=== PATIENT | female | born 1970 | race Caucasian/White ===

== ENCOUNTER → 2018-01-03 11:10 | Outpatient (CLI) | payer SELFPAY ==
[2018-01-03 11:41] LABS: Prothrombin Time (Protime)PT. 30.9 SECONDS (11.7-14.9)
== END ==
PROVIDERS: Family Provider Family Medicine; PCP Family Medicine; Visit Provider Family Medicine
DX: I82.4Z2 Acute embolism and thrombosis of unspecified deep veins of left distal lower extremity (principal); Z79.01 Long term (current) use of anticoagulants
CPT/HCPCS: 85610

== ENCOUNTER → 2018-03-01 14:34 | Outpatient (CLI) | payer MEDICAID, SELFPAY ==
[2018-03-01 14:49] LABS: International Normalized Ratio 2.4; Prothrombin Time (Protime)PT. 26.1 SECONDS (11.7-14.9)
== END ==
PROVIDERS: Referring Provider Family Medicine; Visit Provider Family Medicine
DX: I82.4Z2 Acute embolism and thrombosis of unspecified deep veins of left distal lower extremity (principal); Z79.01 Long term (current) use of anticoagulants
CPT/HCPCS: 85610

== ENCOUNTER → 2018-03-08 10:10 | Outpatient (CLI) | payer MEDICAID, SELFPAY ==
[2018-03-08 10:33] LABS: International Normalized Ratio 2.2; Prothrombin Time (Protime)PT. 24.8 SECONDS (11.7-14.9)
== END ==
PROVIDERS: Referring Provider Family Medicine; Visit Provider Family Medicine
DX: I82.4Z2 Acute embolism and thrombosis of unspecified deep veins of left distal lower extremity (principal); Z79.01 Long term (current) use of anticoagulants
CPT/HCPCS: 85610

== ENCOUNTER → 2018-04-01 09:53 | Outpatient (CLI) | payer MEDICAID, SELFPAY ==
[2018-04-01 13:11] LABS: International Normalized Ratio 2.4; Prothrombin Time (Protime)PT. 26.4 SECONDS (11.7-14.9)
== END ==
PROVIDERS: Referring Provider Family Medicine; Visit Provider Family Medicine
DX: I82.4Z2 Acute embolism and thrombosis of unspecified deep veins of left distal lower extremity (principal); Z79.01 Long term (current) use of anticoagulants
CPT/HCPCS: 85610

== ENCOUNTER → 2018-05-09 11:58 | Outpatient (CLI) | payer MEDICAID, SELFPAY ==
[2018-05-09 13:03] LABS: International Normalized Ratio 2.3; Prothrombin Time (Protime)PT. 25.7 SECONDS (11.7-14.9)
--- OUTSIDE RECORDS SUMMARY | 2018-06-25 07:16 | XMS RPT_ITS ---
:1970 Author Organization OHIP Care Team Providers Name Role Phone PATRICK LOPEZ Referring Unavailable PATRICK LOPEZ Referring Unavailable GIFTY MERCADO (HAT MARKER) Attending Unavailable SHERRILL NAVARRO Referring Unavailable ELDERBROCK, PATRICK D Referring Unavailable ELDERBROCK, PATRICK Umaña Referring Unavailable ELDERBROCK, PATRICK Umaña Referring Unavailable SERENITY MORRIS (SAWMILLING OPERATOR) Attending Unavailable ELDERBROCK, PATRICK Umaña Referring Unavailable ELDERBROCK, PATRICK Umaña Referring Unavailable ELDERBROCK, PATRICK Umaña Attending Unavailable SERENITY MORRIS (SAWMILLING OPERATOR) Referring Unavailable ELDERBROCK, PATRICK Umaña Referring Unavailable ELDERBROCK, PATRICK D Referring Unavailable ELDERBROCK, PATRICK D Referring Unavailable ELDERBROCK, PATRICK Umaña Attending Unavailable ELDERBROCK, PATRICK D Referring Unavailable ELDERBROCK, PATRICK D Referring Unavailable ELDERBROCK, PATRICK D Referring Unavailable ELDERBROCK, PATRICK D Referring Unavailable ELDERBROCK, PATRICK Umaña Attending Unavailable ELDERBROCK, PATRICK Umaña Referring Unavailable ELDERBROCK, PATRICK Umaña Referring Unavailable ELDERBROCK, PATRICK Umaña Referring Unavailable ARMANDO REILLY Attending Unavailable ELDERBROCK, PATRICK Umaña Referring Unavailable ELDERBROCK, PATRICK Umaña Referring Unavailable ELDERBROCK, PATRICK Umaña Referring Unavailable OLDER, AILYN (HAT MARKER) Attending Unavailable OLDER, AILYN (HAT MARKER) Referring Unavailable ELDERBROCK, PATRICK D Referring Unavailable ELDERBROCK, PATRICK Umaña Referring Unavailable ELDERBROCK, PATRICK Umaña Referring Unavailable Elderbrock, Patrick Attending Unavailable Elderbrock, Patrick Referring Unavailable Elderbrock, Patrick Attending Unavailable Elderbrock, Patrick Referring Unavailable Elderbrock, Patrick Primary Care Unavailable Elderbrock, Patrick Attending Unavailable [place], Patrick Primary Care Unavailable [place], Patrick Attending Unavailable [place]brock, Patrick Referring Unavailable Elderbrock, Patrick Attending Unavailable [place]ck, Patrick Referring Unavailable ASSESSMENT, HEALTH RISK Attending Unavailable Elder[place]ck, Patrick Attending Unavailable [place], Patrick Referring Unavailable PROBLEMS PROBLEMS DATE TYPE CONDITION / CODE ATTENDING STATUS SOURCE 05/09/2018 Unknown Z79.01 - custodial [place], Active [place] (current) use of Patrick [facility] anticoagulants / Hospital Z79.01(ICD-10) Repository 05/09/2018 Unknown I82.4Z2 - Acute [place], Active [place] embolism and [facility] thrombosis of Hospital unspecified deep Repository veins of left distal lower extremity / I82.4Z2(ICD-10) 09/29/2016 Active Acute embolism and NA Active [place] thrombosis of other Clinic Main specified deep vein [place] of left lower Repository extremity / I82.492(ICD-10) 03/09/2018 Active Cough / R05(ICD-10) NA Active [facility] [place] Repository 03/09/2018 Active Wheezing / NA Active [facility] R06.2(ICD-10) Clinic Main [place] Repository 03/24/2014 Active Vitamin D NA Active [place] deficiency, Clinic Main unspecified / [place] E55.9(ICD-10) Repository 03/01/2018 Active Encounter for NA Active [place] antibody response [facility] examination / [place] Z01.84(ICD-10) Repository 10/05/2017 Active Acute embolism and NA Active [facility] thrombosis of [facility] unspecified deep [place] veins of left distal Repository lower extremity / I82.4Z2(ICD-10) 09/18/2017 Active Other oil heaterman NA Active [place] (current) drug [facility] therapy / [place] Z79.899(ICD-10) Repository 09/10/2017 Active Encounter for NA Active [place] screening mammogram Clinic [facility] for malignant [place] neoplasm of breast / Repository Z12.31(ICD-10) 09/10/2017 Active Unknown / GIFTY MERCADO Active [place] UNK(Unknown) (HAT MARKER) Clinic Main [place] Repository 11/05/2015 Active Personal history of NA Active [place] other venous [facility] thrombosis and [place] embolism / Repository Z86.718(ICD-10) 12/11/2013 Active intermediate project manager (current) NA Active [place] use of Clinic Main anticoagulants / [place] Z79.01(ICD-10) Repository PROCEDURES PROCEDURES No Procedure Records FoundRESULTS RESULTS OBSOLETE Observed: 06/14/2018 Status: COMPLETED Source: [place] 12:00 AM [facility] REPOSITORY Refill (FAMAuryWS) CARMELO BEST ([id number]) 1970 F Date Time Provider Department 06/14/18 PATRICK LOPEZWS During your visit today, we recorded the following information about you: Mildred Pandya, RN, RN 06/14/2018 1:01 PM Signed Patient has been identified by name and date of : Yes Patient phones for refill(s): Pending Prescriptions Disp Refills POTASSIUM CHLORIDE ER 20 MEQ TABLET,EXTENDED RELEASE(PART/CRYST) 60 tablet 11 Sig: Take 1 tablet by mouth twice daily. DRISS: No Date of last office visit in primary care: 03/09/18 Last 2 Encounter Wt Readings: Date: Wt: 03/09/2018 131.5 kg (290 lb) 03/01/2018 134.3 kg (296 lb) Previous labs/tests for medication: Potassium: No components found for: POT Please advise. Thank you. Mildred Pandya RN Patrick Lopez MD 06/14/2018 3:16 PM Signed OK to refill as ordered MD Malathi Pierre Ma 06/14/2018 3:48 PM Signed The following approved medication requests have been transmitted electronically. Signed Prescriptions Disp Refills potassium chloride ER (KLOR-CON M20) 20 mEq tablet 60 tablet 11 Sig: Take 1 tablet by mouth twice daily. DRISS: No Authorizing Provider: PATRICK LOPEZ Ma Allergies As of Date: 06/14/2018 (No Known Allergies) Date Reviewed: 03/09/2018 Reviewed by: Jane Alvarado Ma - Fully Assessed Reason for Visit: Refill Request [94] Order(s):potassium chloride ER (KLOR-CON M20) 20 mEq tabletTake 1 tablet by mouth twice daily.Disp: 60 tabletRfl: 11 Prescriptions as of 06/14/2018 Sig: POTASSIUM CHLORIDE ER 20 MEQ * Take 1 tablet by mouth twice * CHOLECALCIFEROL (VITAMIN D3) * Take 1 capsule by mouth once * BUPROPION XL 300 MG 24 HR TAB TAKE 1 TABLET BY MOUTH ONCE D* WARFARIN 5 MG TABLET 10 mg Mon/Wed/Fri and 7.5 mg * WARFARIN 5 MG TABLET 10 mg Mon/Wed/Fri and 7.5 mg * WARFARIN 5 MG TABLET 10 mg Mon/Wed/Fri and 7.5 mg * BROMPHENIRAMINE-PSEUDOEPHEDRI* Take 5 mL by mouth four times* ALBUTEROL SULFATE HFA 90 MCG/* Inhale 2 Puffs as instructed * LOSARTAN 50 MG TABLET TAKE ONE TABLET BY MOUTH ONCE* HYDROCHLOROTHIAZIDE 25 MG TAB* TAKE ONE TABLET BY MOUTH ONCE* COMPOUNDED PRESCRIPTION AutoPAP 5-15 cmH2O with humid* Problem List As Of Date 06/14/2018 Noted Resolved ADJUSTMENT DISORDER WITH DEPRESSED MOOD [F43.21]INVALID FOR* Essential Hypertension, Benign [I10] INVALID FOR* Obesity, Class III, BMI 40-49.9 (morbid obesity*INVALID FOR* Calcaneal spur [M77.30] INVALID FOR* Left leg DVT [I82.402] INVALID FOR* intermediate project manager (current) use of anticoagulants [Z79.*INVALID FOR* KERVIN (iron deficiency anemia) [D50.9] INVALID FOR*09/28/2017 Vitamin D deficiency [E55.9] INVALID FOR* Positive occult stool blood test [R19.5] Benign pigmented mole [D22.9] INVALID FOR* More... Hematuria [R31.9] INVALID FOR* Menorrhagia with irregular cycle [N92.1] INVALID FOR*07/12/2016 History of DVT (deep vein thrombosis) [Z86.718] INVALID FOR* Deep vein thrombosis (DVT) of left lower extrem*INVALID FOR* Steroid-induced hyperglycemia [R73.9, T38.0X5A] INVALID FOR* Obstructive sleep apnea [G47.33] INVALID FOR* Prescriptions ordered this encounter Disp Refills Start End POTASSIUM CHLORIDE ER 20 MEQ TABLET,* 60 t* 11 06/14/2018 Route: ORAL Sig: Take 1 tablet by mouth twice daily. Medications Discontinued During This Encounter potassium chloride ER (KLOR-CON M20)* 60 t* 11 02/02/2017 06/14/2018 Route: ORAL Sig: Take 1 tablet by mouth twice daily. Disc: Reason for discontinue is not on file. Encounter Status:Closed by MALATHI IVY MA on 06/14/18 PROTHROMBIN TIME W/INR Collected: 06/03/2018 Status: F Source: [place] 11:19 AM [facility] REPOSITORY TYPE CODE TESTS RESULT OUT OF RANGE REFERENCE UNITS LAB L300.4150 11.7-14.9 SECONDS High PROTIME 27.8 LAB L300.4200 Normal INR 2.6 Performed By: #### L300.3900 #### [facility] [place], [address] PROTIME Collected: 05/09/2018 Status: F Source: [place] 10:58 AM [facility] REPOSITORY TYPE CODE TESTS RESULT OUT OF REFERENCE UNITS RANGE LAB PSEC 9.7-13.0 sec Test PT sent to [facility]. Result Comment: Account Credited LAB INR 0.9-1.3 Test sent to PT INR [facility]. Result Comment: Account Credited VITAMIN D 25 HYDROXY Collected: 05/09/2018 Status: F Source: [place] 10:55 AM [facility] REPOSITORY TYPE CODE TESTS RESULT OUT OF REFERENCE UNITS RANGE LAB VITD 31.0-80.0 ng/mL Vitamin D 25 61.6 Hydroxy Result Comment: Classification of 25 [place] Vitamin D status: Insufficiency/Moderate Deficiency: < or = 30 ng/mL Sufficiency/Optimal Levels: 31 to 80 ng/mL Toxicity: > 100 ng/mL Test performed by chemiluminescent immunoassay. Performed By: #### VITD #### [facility] [address] [place], [place] [address] PROTHROMBIN TIME W/INR Collected: 05/09/2018 Status: F Source: [place] 10:47 AM [facility] REPOSITORY TYPE CODE TESTS RESULT OUT OF RANGE REFERENCE UNITS LAB L300.4150 11.7-14.9 SECONDS High PROTIME 25.7 LAB L300.4200 Normal INR 2.3 Performed By: #### L300.3900 #### [facility] [address] [place], [address] PROTIME Collected: 04/20/2018 Status: F Source: [place] 11:16 AM [facility] REPOSITORY TYPE CODE TESTS RESULT OUT OF RANGE REFERENCE UNITS LAB PSEC 9.7-13.0 sec High PT Sec 21.4 LAB INR 0.9-1.3 High PT INR 2.1 Result Comment: Vitamin K Antagonist (VKA) Therapeutic Range: INR 2 to 3 (Target INR of 2.5) Note: For patients treated with VKA drugs, such as warfarin, the [employer] 2012 Guideline recommends a therapeutic INR range of 2 to 3 (target INR of 2.5). This recommendation includes high-risk patients with antiphospholipid syndrome with previous arterial or venous thromboembolism, current-generation mechanical or bioprosthetic aortic heart valve replacement. Note: Patients with mechanical aortic valve replacement and additional risk factors for thromboembolic events (atrial fibrillation, previous thromboembolism, LV dysfunction, hypercoagulable conditions) or an older generation mechanical AVR (i.e., ball in-Cage) or any mechanical MVR should have a INR therapeutic range of 2.5 to 3.5 (target INR of 3). Napoleon GH, et al. Chest 2012, 141:7S-47S Rusty RA, et al. [facility] 2017, 70: 252-289 Performed By: #### PT #### [facility] [address] [place], [place] [address] PROTIME Collected: 04/01/2018 Status: F Source: [place] 10:30 AM [facility] REPOSITORY TYPE CODE TESTS RESULT OUT OF REFERENCE UNITS RANGE LAB PSEC 9.7-13.0 sec Test PT sent to [facility]. Result Comment: Account Credited HIDE LAB INR 0.9-1.3 Test sent to PT INR [facility]. Result Comment: Account Credited HIDE PROTHROMBIN TIME W/INR Collected: 04/01/2018 Status: F Source: [place] 9:53 AM [facility] REPOSITORY TYPE CODE TESTS RESULT OUT OF RANGE REFERENCE UNITS LAB L300.4150 11.7-14.9 SECONDS High PROTIME 26.4 LAB L300.4200 Normal INR 2.4 Performed By: #### L300.3900 #### [facility] [address] [place], [address] CNPN Observed: 03/14/2018 Status: COMPLETED Source: [place] 12:00 AM [facility] REPOSITORY Telephone (BHANUWADS) CARMELO BEST ([id number]) 1970 F Date Time Provider Department 03/14/18 ARMANDO REILLY During your visit today, we recorded the following information about you: Armando Reilly MD 03/14/2018 8:25 AM Signed Still showing susceptible to measles. Would advise 2nd MMR after 03/24=2 mos after 1st shot. Order placed. Not to take the vaccine while on prednisone. Encounter Diagnosis ICD-10-CM 1. Need for immunization against measles Z23 MD Guillermina Vega Ma 03/14/2018 1:13 PM Signed Patient notified of results and provider's instructions. Patient verbalizes understanding. Guillermina García Ma Allergies As of Date: 03/14/2018 (No Known Allergies) Date Reviewed: 03/09/2018 Reviewed by: Jane Alvarado Ma - Fully Assessed Reason for Visit: Results [95] Primary Visit Diagnosis:Need for immunization against measles [Z23] Order(s):MMR VIRUS IMMUNIZATION, SUBCUT [[id number]] Order #: [id number] FUTURE Prescriptions as of 03/14/2018 Sig: BROMPHENIRAMINE-PSEUDOEPHEDRI* Take 5 mL by mouth four times* PREDNISONE 10 MG TABLET Take 4 tabs daily for 3 days,* ERGOCALCIFEROL (VITAMIN D2) 5* Take 1 capsule by mouth once * ALBUTEROL SULFATE HFA 90 MCG/* Inhale 2 Puffs as instructed * WARFARIN 5 MG TABLET 10 mg Sun and and 7.* WARFARIN 5 MG TABLET 10 mg Sun and 7.5 mg al* BUPROPION XL 300 MG 24 HR TAB Take 1 tablet by mouth once d* LOSARTAN 50 MG TABLET TAKE ONE TABLET BY MOUTH ONCE* HYDROCHLOROTHIAZIDE 25 MG TAB* TAKE ONE TABLET BY MOUTH ONCE* POTASSIUM CHLORIDE ER 20 MEQ * Take 1 tablet by mouth twice * COMPOUNDED PRESCRIPTION AutoPAP 5-15 cmH2O with humid* Problem List As Of Date 03/14/2018 Noted Resolved ADJUSTMENT DISORDER WITH DEPRESSED MOOD [F43.21]INVALID FOR* Essential Hypertension, Benign [I10] INVALID FOR* Obesity, Class III, BMI 40-49.9 (morbid obesity*INVALID FOR* Calcaneal spur [M77.30] INVALID FOR* Left leg DVT [I82.402] INVALID FOR* custodial (current) use of anticoagulants [Z79.*INVALID FOR* KERVIN (iron deficiency anemia) [D50.9] INVALID FOR*09/28/2017 Vitamin D deficiency [E55.9] INVALID FOR* Positive occult stool blood test [R19.5] Benign pigmented mole [D22.9] INVALID FOR* More... Hematuria [R31.9] INVALID FOR* Menorrhagia with irregular cycle [N92.1] INVALID FOR*07/12/2016 History of DVT (deep vein thrombosis) [Z86.718] INVALID FOR* Deep vein thrombosis (DVT) of left lower extrem*INVALID FOR* Steroid-induced hyperglycemia [R73.9, T38.0X5A] INVALID FOR* Obstructive sleep apnea [G47.33] INVALID FOR* Encounter Status:Closed by GUILLERMINA GARCÍA MA on 03/14/18 XR CHEST 2V FRONTAL/LAT Observed: 03/09/2018 Status: F Source: [place] 1:37 PM [facility] REPOSITORY * * *Final Report* * * DATE OF EXAM: Mar 09 2018 1:37PM WOX [id number] - XR CHEST 2V FRONTAL/LAT / PROCEDURE REASON: multiple diagnoses * * * * Physician Interpretation * * * * EXAMINATION: CHEST RADIOGRAPH (2 VIEW FRONTAL and LATERAL) CLINICAL HISTORY: Cough Wheezing MQ: XC2_5 Comparison: 12/29/2015 RESULT: Lines, tubes, and devices: None. Lungs and pleura: No focal consolidation, significant pleural effusion or pneumothorax. Cardiomediastinal silhouette: Within normal limits. Other: No acute osseous abnormality. Degenerative changes are present in the thoracic spine. IMPRESSION: Focal consolidation or pleural effusion Fusion Juncture Grinder: [facility] Transcribe Date/Time: Mar 09 2018 1:43P Dictated by : CHARLEE APODACA MD This examination was interpreted and the report reviewed and electronically signed by: CHARLEE APODACA MD on Mar 09 2018 1:44PM EST [id number] Observed: 03/09/2018 Status: COMPLETED Source: [place] 1:31 PM [facility] REPOSITORY HNO ID: [id number] Author: Gertrude Dao (Rt) Mary Yeung Service: (none) Author Type: Agronomy Supervisor Type: Progress Notes Filed: 03/09/2018 1:37 PM Note Text: Radiology Service Progress Note PATIENT NAME: Carmelo Best DATE OF SERVICE: March 09, 2018 TIME: 1:31 PM PATIENT IDENTITY VERIFICATION COMPLETED USING TWO (2) METHODS: Patient confirmed name verbally and Date of . PATIENT GENDER DATA: Female. status: : No status: NO. PATIENT RELEVANT IMPLANT DATA REVIEWED: Not Applicable RADIOLOGY DEPARTMENT: General X-ray: Exam(s) Completed: Chest X-Ray PERIPHERAL IV DATA: Not applicable SIGNED BY: RT Yojana March 09, 2018 1:31 PM PROGRESS Observed: 03/09/2018 Status: COMPLETED Source: [place] 1:21 PM [facility] REPOSITORY HNO ID: [id number] Author: Ailyn (Julissa) Older Service: (none) Author Type: Nurse Practitioner Type: Progress Notes Filed: 03/09/2018 1:56 PM Note Text: CC: Patient presents with: Cough Fever HPI: Carmelo Best is a 47 year old female who presents to the office with complaint of respiratory symptoms for a month. She was seen one week ago for symptoms, treated for sinobronchitis with Doxycycline. Started feeling slightly better for the first two days of the antibiotic but gradually worsening again. Associated symptoms includes nasal congestion, rhinorrhea, facial pain/pressure, fever, mostly non-productive cough, wheezing, dyspnea and chest tightness. Treatments tried include antihistamine with minor relief of symptoms. Inhaler helps temporarily. History of asthma, frequent episodes of bronchitis, chronic bronchitis, bronchiectasis or COPD: No Smoker: No Seasonal/environmental allergies: No The ROS is otherwise negative. The patient's pmh, medications, allergies, and past visits are reviewed. PHYSICAL EXAM: BP 120/90 Pulse 79 Temp 36.4 ?C (97.6 ?F) (Left Tympanic) Resp 16 Wt 131.5 kg (290 lb) LMP 09/03/2015 (Approximate) BMI 44.09 kg/m? General appearance: tired/ill appearing, in no acute distress Head: Normocephalic Eyes: conjunctiva pink and moist, no icterus, sclera white, non-injected Ears: Right ear: External ear/canal- Normal, TM - clear with good landmarks. Left ear: External ear/canal- Normal, TM - clear with good landmarks Nose: clear, no sinus tenderness. Oropharynx:No erythema, exudates or tonsillar hypertrophy. Neck:supple and no adenopathy Heart: Negative. RRR without obvious murmur, gallop, or rubs. No ectopy. Lungs: diminished breath sounds with scattered wheezing, rhonchi posteriorly, no rales ASSESSMENT/PLAN: 1. Acute bronchitis, unspecified organism - ICD9: 466.0, ICD10: J20.9 (primary diagnosis) No evidence of pneumonia on X-ray - Discussed bronchitis viral etiology and rationale for treatment. - Encouraged to increase fluids, rest, humidifier, expect to cough 2-3 weeks - Pharmacologic treatment: Prednisone burst with taper. Side effects discussed in detail with patient including elevated blood sugars, irritation/bleeding, and osteoporosis. Bromfed as needed - Symptomatic treatment prn analgesia - Follow up in 1-2 weeks if symptoms do not resolve or they worsen with onset of onset of new fever, localized chest pains and new headache with increase in nasal congestion/drainage 2. Cough - ICD9: 786.2, ICD10: R05 As above - XR CHEST 2V FRONTAL/LAT 3. Wheezing - ICD9: 786.07, ICD10: R06.2 As above - XR CHEST 2V FRONTAL/LAT Prescription instructions reviewed with patient as applicable. Potential red flag symptoms discussed with the patient. Reviewed appropriate action plan to take if red flag symptoms occur. Patient agreeable to treatment plan. Ailyn Emanuel APRN.CNP CNOV Observed: 03/09/2018 Status: COMPLETED Source: [place] 1:15 PM [facility] REPOSITORY Office Visit (WSTR) CARMELO BEST ([id number]) 1970 F Date Time Provider Department 03/09/18 1:15 PM AILYN EMANUEL (JULISSA) WSTR During your visit today, we recorded the following information about you: Temperature Pulse Respiration Blood pressure 97.6 degrees 79/minute 16/minute 120/90 Weight 131.5 kg Ailyn Emanuel APRN.CNP 03/09/2018 1:56 PM Signed CC: Patient presents with: Cough Fever HPI: Carmelo Best is a 47 year old female who presents to the office with complaint of respiratory symptoms for a month. She was seen one week ago for symptoms, treated for sinobronchitis with Doxycycline. Started feeling slightly better for the first two days of the antibiotic but gradually worsening again. Associated symptoms includes nasal congestion, rhinorrhea, facial pain/pressure, fever, mostly non-productive cough, wheezing, dyspnea and chest tightness. Treatments tried include antihistamine with minor relief of symptoms. Inhaler helps temporarily. History of asthma, frequent episodes of bronchitis, chronic bronchitis, bronchiectasis or COPD: No Smoker: No Seasonal/environmental allergies: No The ROS is otherwise negative. The patient's pmh, medications, allergies, and past visits are reviewed. PHYSICAL EXAM: BP 120/90 Pulse 79 Temp 36.4 ?C (97.6 ?F) (Left Tympanic) Resp 16 Wt 131.5 kg (290 lb) LMP 09/03/2015 (Approximate) BMI 44.09 kg/m? General appearance: tired/ill appearing, in no acute distress Head: Normocephalic Eyes: conjunctiva pink and moist, no icterus, sclera white, non-injected Ears: Right ear: External ear/canal- Normal, TM - clear with good landmarks. Left ear: External ear/canal- Normal, TM - clear with good landmarks Nose: clear, no sinus tenderness. Oropharynx:No erythema, exudates or tonsillar hypertrophy. Neck:supple and no adenopathy Heart: Negative. RRR without obvious murmur, gallop, or rubs. No ectopy. Lungs: diminished breath sounds with scattered wheezing, rhonchi posteriorly, no rales ASSESSMENT/PLAN: 1. Acute bronchitis, unspecified organism - ICD9: 466.0, ICD10: J20.9 (primary diagnosis) No evidence of pneumonia on X-ray - Discussed bronchitis viral etiology and rationale for treatment. - Encouraged to increase fluids, rest, humidifier, expect to cough 2-3 weeks - Pharmacologic treatment: Prednisone burst with taper. Side effects discussed in detail with patient including elevated blood sugars, irritation/bleeding, and osteoporosis. Bromfed as needed - Symptomatic treatment prn analgesia - Follow up in 1-2 weeks if symptoms do not resolve or they worsen with onset of onset of new fever, localized chest pains and new headache with increase in nasal congestion/drainage 2. Cough - ICD9: 786.2, ICD10: R05 As above - XR CHEST 2V FRONTAL/LAT 3. Wheezing - ICD9: 786.07, ICD10: R06.2 As above - XR CHEST 2V FRONTAL/LAT Prescription instructions reviewed with patient as applicable. Potential red flag symptoms discussed with the patient. Reviewed appropriate action plan to take if red flag symptoms occur. Patient agreeable to treatment plan. Ailyn Emanuel APRN.JULISSA Robertson Funmi LYNNE.JULISSA 03/09/2018 1:53 PM Addendum What is Bronchitis: No doubt you've had your share of colds. Perhaps you even know someone who has had pneumonia. In between these two conditions is an illness called bronchitis, which is more severe than the common cold but not as dangerous as pneumonia Bronchitis occurs when the bronchioles (air tubes in the lungs) are inflamed and make too much mucus. There are two basic types of bronchitis: ? Chronic bronchitis is a cough that persists for two to three months each year for at least two years. The cough and inflammation may be caused by infection, illness, or exposure to tobacco smoke or other irritating substances in the air. ? Acute or short-term bronchitis is more common and usually is caused by a viral infection. Episodes of acute bronchitis can be related to and worsened by smoking. Treatment Bronchitis is not usually treated with antibiotic medicines. That?s because bronchitis is almost always caused by a virus, and antibiotics only kill bacteria?not viruses. 1.) Get more rest than you usually do - this will speed your recovery. If you push hard with your usual busy schedule, you will be sicker longer. 2.) Drink a lot of water - enough to make you urinate every 2-3 hours (your urine should be a light yellow color). This helps thin the phlegm and sooth the airways. Gatorade (G2) is less in sugar and replaces your electrolytes if not eating well. 3.) Run a cool mist humidifier in your bedroom on high with the door closed. This is a natural way to decongest, and it helps lessen scratchy throats, nasal stuffiness and coughs. A good brand is [employer], which can be found at [employer] or [employer]. This is especially important if you do not have a humidifier on your furnace. 4) For cough-Mucinex 600-1200mg twice daily(plain) may help thin secretions so they are easier to cough up. May also use Robitussin cough syrup as needed (without DM). Those with high blood pressure may take Coricidin HBP. 5) For SOB/wheezing: Albuterol inhaler (if prescribed), follow prescription instructions. This medication helps by relaxing muscles in the airways and increasing air flow to the lungs 6) Prednisone (if prescribed): This is an anti-inflammatory medication which will help calm the inflamed bronchioles, increasing air flow to the lungs and reducing cough Cough following bronchitis can last up to 4-6 weeks but should slowly improve. If cough worsens or lasts longer than 4 weeks please call office at [phone] Referring Provider: SELF [200] Allergies As of Date: 03/09/2018 (No Known Allergies) Date Reviewed: 03/09/2018 Reviewed by: Jane Alvarado Ma - Fully Assessed Reason for Visit: Cough [28] Fever [47] Primary Visit Diagnosis:Acute bronchitis, unspecified organism [J20.9] Other Visit Diagnoses:Cough [R05] Wheezing [R06.2] Order(s):XR CHEST 2V FRONTAL/LAT [[id number]] Order #: [id number] FUTURE Kwwisdmasiicxck-Tpdvcktwp-GF (BROMFED DM) 2-30-10 mg/5 mL syrupTake 5 mL by mouth four times daily as needed.Disp: 140 mLRfl: 0 predniSONE (DELTASONE) 10 mg tabletTake 4 tabs daily for 3 days, then 2 tabs daily for 3 days, then 1 tab daily for 3 days with food.Disp: 21 tabletRfl: 0 Prescriptions as of 03/09/2018 Sig: ERGOCALCIFEROL (VITAMIN D2) 5* Take 1 capsule by mouth once * DOXYCYCLINE MONOHYDRATE 100 M* Take 1 tablet by mouth twice * ALBUTEROL SULFATE HFA 90 MCG/* Inhale 2 Puffs as instructed * WARFARIN 5 MG TABLET 10 mg Sun and and 7.* WARFARIN 5 MG TABLET 10 mg Sun and 7.5 mg al* BUPROPION XL 300 MG 24 HR TAB Take 1 tablet by mouth once d* LOSARTAN 50 MG TABLET TAKE ONE TABLET BY MOUTH ONCE* HYDROCHLOROTHIAZIDE 25 MG TAB* TAKE ONE TABLET BY MOUTH ONCE* POTASSIUM CHLORIDE ER 20 MEQ * Take 1 tablet by mouth twice * COMPOUNDED PRESCRIPTION AutoPAP 5-15 cmH2O with humid* BROMPHENIRAMINE-PSEUDOEPHEDRI* Take 5 mL by mouth four times* PREDNISONE 10 MG TABLET Take 4 tabs daily for 3 days,* Problem List As Of Date 03/09/2018 Noted Resolved ADJUSTMENT DISORDER WITH DEPRESSED MOOD [F43.21]INVALID FOR* Essential Hypertension, Benign [I10] INVALID FOR* Obesity, Class III, BMI 40-49.9 (morbid obesity*INVALID FOR* Calcaneal spur [M77.30] INVALID FOR* Left leg DVT [I82.402] INVALID FOR* custodial (current) use of anticoagulants [Z79.*INVALID FOR* KERVIN (iron deficiency anemia) [D50.9] INVALID FOR*09/28/2017 Vitamin D deficiency [E55.9] INVALID FOR* Positive occult stool blood test [R19.5] Benign pigmented mole [D22.9] INVALID FOR* More... Hematuria [R31.9] INVALID FOR* Menorrhagia with irregular cycle [N92.1] INVALID FOR*07/12/2016 History of DVT (deep vein thrombosis) [Z86.718] INVALID FOR* Deep vein thrombosis (DVT) of left lower extrem*INVALID FOR* Steroid-induced hyperglycemia [R73.9, T38.0X5A] INVALID FOR* Obstructive sleep apnea [G47.33] INVALID FOR* Other instructions from your clinician: What is Bronchitis: No doubt you've had your share of colds. Perhaps you even know someone who has had pneumonia. In between these two conditions is an illness called bronchitis, which is more severe than the common cold but not as dangerous as pneumonia Bronchitis occurs when the bronchioles (air tubes in the lungs) are inflamed and make too much mucus. There are two basic types of bronchitis: ? Chronic bronchitis is a cough that persists for two to three months each year for at least two years. The cough and inflammation may be caused by infection, illness, or exposure to tobacco smoke or other irritating substances in the air. ? Acute or short-term bronchitis is more common and usually is caused by a viral infection. Episodes of acute bronchitis can be related to and worsened by smoking. Treatment Bronchitis is not usually treated with antibiotic medicines. That?s because bronchitis is almost always caused by a virus, and antibiotics only kill bacteria?not viruses. 1.) Get more rest than you usually do - this will speed your recovery. If you push hard with your usual busy schedule, you will be sicker longer. 2.) Drink a lot of water - enough to make you urinate every 2-3 hours (your urine should be a light yellow color). This helps thin the phlegm and sooth the airways. Gatorade (G2) is less in sugar and replaces your electrolytes if not eating well. 3.) Run a cool mist humidifier in your bedroom on high with the door closed. This is a natural way to decongest, and it helps lessen scratchy throats, nasal stuffiness and coughs. A good brand is Vicks, which can be found at [employer] or [employer]. This is especially important if you do not have a humidifier on your furnace. 4) For cough-Mucinex 600-1200mg twice daily(plain) may help thin secretions so they are easier to cough up. May also use Robitussin cough syrup as needed (without DM). Those with high blood pressure may take Coricidin HBP. 5) For SOB/wheezing: Albuterol inhaler (if prescribed), follow prescription instructions. This medication helps by relaxing muscles in the airways and increasing air flow to the lungs 6) Prednisone (if prescribed): This is an anti-inflammatory medication which will help calm the inflamed bronchioles, increasing air flow to the lungs and reducing cough Cough following bronchitis can last up to 4-6 weeks but should slowly improve. If cough worsens or lasts longer than 4 weeks please call office at [phone] Prescriptions ordered this encounter Disp Refills Start End HJETRLQTHTCLWEZ-AOWNGQTYLCASRNF-PT 2* 140 * 0 03/09/2018 Route: ORAL Sig: Take 5 mL by mouth four times daily as needed. PREDNISONE 10 MG TABLET 21 t* 0 03/09/2018 03/18/2018 Sig: Take 4 tabs daily for 3 days, then 2 tabs daily for 3 days, then 1 tab daily for 3 days with food. Encounter Status:Closed by AILYN EMANUEL CNP on 03/09/18 PROTIME Collected: 03/08/2018 Status: F Source: [place] 9:25 AM [facility] REPOSITORY TYPE CODE TESTS RESULT OUT OF REFERENCE UNITS RANGE LAB PSEC 9.7-13.0 sec Test PT sent to [facility]. Result Comment: Account Credited HIDE LAB INR 0.9-1.3 Test sent to PT INR [facility]. Result Comment: Account Credited HIDE PROTHROMBIN TIME W/INR Collected: 03/08/2018 Status: F Source: [place] 9:25 AM [facility] REPOSITORY TYPE CODE TESTS RESULT OUT OF RANGE REFERENCE UNITS LAB L300.4150 11.7-14.9 SECONDS High PROTIME 24.8 LAB L300.4200 Normal INR 2.2 Performed By: #### L300.3900 #### [facility] [address] [place], [address] APRIL Observed: 03/04/2018 Status: COMPLETED Source: [place] 12:00 AM [facility] REPOSITORY [facility] CARMELO BEST ([id number]) 1970 F Date Time Provider Department 03/04/18 BECKI GUTHRIE (JULISSA) [facility] During your visit today, we recorded the following information about you: Becki Guthrie APRN.CNP 03/04/2018 4:17 PM Signed Vitamin D is high. Please start taking it every other week and we will recheck it in 2-3 months. Telephone on 03/04/18 -VITAMIN D 25 HYDROXY LARON German Ma 03/04/2018 4:23 PM Signed Pt notified. Pt has been taking the Vitamin D 50,000 units every Tues and Sat. She is asking if she needs to just take it one day every other week or 2 days every other week. Please clarify. Argelia Guthrie APRN.CNP 03/04/2018 4:26 PM Signed Have her decrease to just once weekly. LARON German Ma 03/04/2018 4:29 PM Signed Pt notified and voiced understanding. Argelia Brar Ma 03/04/2018 4:30 PM Signed Addended by: ARGELIA BRAR MA on: 03/04/2018 04:30 PM Modules accepted: Orders Allergies As of Date: 03/04/2018 (No Known Allergies) Date Reviewed: 03/01/2018 Reviewed by: Kranthi Bhatia - Fully Assessed Reason for Visit: Results [95] Primary Visit Diagnosis:Vitamin D deficiency [E55.9] Order(s):VITAMIN D 25 HYDROXY [SQVITD] Order #: [id number] FUTURE Prescriptions as of 03/04/2018 Sig: ERGOCALCIFEROL (VITAMIN D2) 5* Take 1 capsule by mouth once * DOXYCYCLINE MONOHYDRATE 100 M* Take 1 tablet by mouth twice * ALBUTEROL SULFATE HFA 90 MCG/* Inhale 2 Puffs as instructed * WARFARIN 5 MG TABLET 10 mg Sun and and 7.* WARFARIN 5 MG TABLET 10 mg Sun and 7.5 mg al* BUPROPION XL 300 MG 24 HR TAB Take 1 tablet by mouth once d* LOSARTAN 50 MG TABLET TAKE ONE TABLET BY MOUTH ONCE* HYDROCHLOROTHIAZIDE 25 MG TAB* TAKE ONE TABLET BY MOUTH ONCE* POTASSIUM CHLORIDE ER 20 MEQ * Take 1 tablet by mouth twice * COMPOUNDED PRESCRIPTION AutoPAP 5-15 cmH2O with humid* Problem List As Of Date 03/04/2018 Noted Resolved ADJUSTMENT DISORDER WITH DEPRESSED MOOD [F43.21]INVALID FOR* Essential Hypertension, Benign [I10] INVALID FOR* Obesity, Class III, BMI 40-49.9 (morbid obesity*INVALID FOR* Calcaneal spur [M77.30] INVALID FOR* Left leg DVT [I82.402] INVALID FOR* intermediate project manager (current) use of anticoagulants [Z79.*INVALID FOR* KERVIN (iron deficiency anemia) [D50.9] INVALID FOR*09/28/2017 Vitamin D deficiency [E55.9] INVALID FOR* Positive occult stool blood test [R19.5] Benign pigmented mole [D22.9] INVALID FOR* More... Hematuria [R31.9] INVALID FOR* Menorrhagia with irregular cycle [N92.1] INVALID FOR*07/12/2016 History of DVT (deep vein thrombosis) [Z86.718] INVALID FOR* Deep vein thrombosis (DVT) of left lower extrem*INVALID FOR* Steroid-induced hyperglycemia [R73.9, T38.0X5A] INVALID FOR* Obstructive sleep apnea [G47.33] INVALID FOR* Medications Discontinued During This Encounter VITAMIN D 50,000 unit capsule 24 c* 1 10/01/2017 03/04/2018 Cmt: Please consider 90 day supplies to promote better adherence Sig: TAKE ONE CAPSULE BY MOUTH EVERY SUNDAY AND SUNDAY Disc: Reason for discontinue is not on file. Encounter Status:Closed by ARGELIA BRAR MA on 03/04/18 ALBUMIN/CREAT RATIO Collected: 03/01/2018 Status: F Source: [place] 2:01 PM [facility] REPOSITORY TYPE CODE TESTS RESULT OUT OF REFERENCE UNITS RANGE LAB UCRR 20-300 mg/dL 94.3 Creatinine,Ur ine,Ran LAB UALBR 0.0-23.0 mg/L <12.0 Albumin Urine Random LAB UALBCR 0-30 mg/g Not Albumin/Creat calculated Ratio Performed By: #### UACR #### [facility] [address] [address] PROTIME Collected: 03/01/2018 Status: F Source: [place] 1:58 PM [facility] REPOSITORY TYPE CODE TESTS RESULT OUT OF REFERENCE UNITS RANGE LAB PSEC 9.7-13.0 sec Test PT sent to [facility]. Result Comment: Account Credited HIDE LAB INR 0.9-1.3 Test sent to PT INR [facility]. Result Comment: Account Credited HIDE Performed By: #### VITD #### [facility] [place] [address] VITAMIN D 25 HYDROXY Collected: 03/01/2018 Status: F Source: [place] 1:58 PM [facility] REPOSITORY TYPE CODE TESTS RESULT OUT OF REFERENCE UNITS RANGE LAB VITD 31.0-80.0 ng/mL High Vitamin D 25 80.3 Hydroxy Result Comment: Classification of 25 [place] Vitamin D status: Insufficiency/Moderate Deficiency: < or = 30 ng/mL Sufficiency/Optimal Levels: 31 to 80 ng/mL Toxicity: > 100 ng/mL Test performed by chemiluminescent immunoassay. Performed By: #### VITD #### [facility] [address] [id number] MEASLES IGG ANTIBODY Collected: 03/01/2018 Status: F Source: [place] 1:57 PM [facility] REPOSITORY TYPE CODE TESTS RESULT OUT OF REFERENCE UNITS RANGE LAB MEASQL Negative Measles IgG Negative Ab, Qual Result Comment: Absence of detectable measles virus IgG antibodies. A negative result generally indicates that the patient has not been infected and is susceptible to measles. If the subject has no history of measles, has not been previously vaccinated and exposure to measles virus is suspected despite a negative finding, a second sample should be collected and tested within one to two weeks later. LAB MEASG AU/mL Measles IgG Antibody 16.6 Result Comment: AU/mL Value interpreted as follows: Negative specimens <25.0 Equivocal specimens 25.0 to 29.9 Positive specimens >29.9 The magnitude of the measured result, above the cutoff, is not indicative of the amount of antibody present. Performed By: #### MEASLG, MUMPSG, RUBIGG #### [facility] [address] [place] [address] MUMPS IGG AB Collected: 03/01/2018 Status: F Source: [place] [id number] [place] [address] REPOSITORY TYPE CODE TESTS RESULT OUT OF RANGE REFERENCE UNITS LAB MUMPSR Negative Abnormal Alert Mumps Positive IgG, Qual Result Comment: Presence of detectable mumps virus IgG antibodies. A positive result generally indicates past exposure to mumps virus or previous vaccination. LAB MUMS AU/mL Mumps IgG Ab >300.0 Result Comment: AU/mL Values interpreted as follows: Negative Specimens <9.0 Equivocal specimens 9.0 to 10.9 Positive specimens >10.9 The magnitude of the measured result, above the cutoff, is not indicative of the amount of antibody present. Performed By: #### MEASLG, MUMPSG, RUBIGG #### [facility] [address] [address] RUBELLA IGG ANTIBODY Collected: 03/01/2018 Status: F Source: [place] 1:[address] [place] [address] REPOSITORY TYPE CODE TESTS RESULT OUT OF RANGE REFERENCE UNITS LAB RUBGQL Negative Abnormal Rubella IgG Positive Alert Ab, Qual Result Comment: Sample is considered positive for IgG antibodies to rubella virus. A positive result indicates previous exposure to Rubella virus or vaccination. LAB RUBQNT Index Value Rubella IgG Ab 27.40 Result Comment: Index values are interpreted as follows: Negative specimens <0.90 Equivocol specimens 0.90 to 0.99 Positive specimens >0.99 The magnitude of the measured result is not indicative of the amount of antibody present. Performed By: #### MEASLG, MUMPSG, RUBIGG #### [facility] [address] [place], [place] [address] PROTHROMBIN TIME W/INR Collected: 03/01/2018 Status: F Source: [place] 1:54 PM [facility] REPOSITORY TYPE CODE TESTS RESULT OUT OF RANGE REFERENCE UNITS LAB L300.4150 11.7-14.9 SECONDS High PROTIME 26.1 LAB L300.4200 Normal INR 2.4 Performed By: #### L300.3900 #### [facility] [address] [place], [address] PROGRESS Observed: 03/01/2018 Status: COMPLETED Source: [place] 1:07 PM [facility] REPOSITORY HNO ID: [id number] Author: Kranthi Bowden) Service: (none) Author Type: Nurse Practitioner Type: Progress Notes Filed: 03/01/2018 3:37 PM Note Text: Subjective HPI HPI Carmelo Best is a 47 year old female who presents today for CC of cough, sinus pressure/congestion, sore throat, ear. This started 3 weeks ago. Has tried otc medication without relief. Symptoms are worsened by nothing. Risk factors multiple sick exposures at home. Denies possibility of being . nonsmoker. .Patient presents with: Flu Like Symptoms: cough, congestion, bilateral ear pain, sore throat, fever on AND off PAST MEDICAL HISTORY Diagnosis Date - Hypertension - KERVIN (iron deficiency anemia) 03/24/2014 - Left leg DVT (HCC) 02/27/2011 x1 (2010), s/p left foot surgery; x2 (2011) - Pneumonia - Positive occult stool blood test - Snoring PAST SURGICAL HISTORY Procedure Laterality Date - COLONOSCOP W/ OR W/O BRSH SPEC 08/03/2014 Colonoscopy - EGD W/O OR W/BRUSH/WASH 08/03/2014 EGD - HYSTERECTOMY HX 09/2015 - HYSTEROSCOPY BX W/WO DANDC 04/06/15 - INSERT INTRAUTERINE DEVICE 04/06/15 Mirena Insertion - LIGATE FALLOPIAN TUBE 2006 - PAST SURGICAL HISTORY OF Heel spur-left - REMOVAL GALLBLADDER 2000 laparoscopic ALLERGIES Patient has no known allergies. MEDICATIONS warfarin (COUMADIN) 5 mg tablet 10 mg Sun and and 7.5 mg all other days or as directed warfarin (COUMADIN) 5 mg tablet 10 mg Sun and 7.5 mg all other days or as directed VITAMIN D 50,000 unit capsule TAKE ONE CAPSULE BY MOUTH EVERY SUNDAY AND SUNDAY buPROPion XL (WELLBUTRIN XL) 300 mg 24 hr tablet Take 1 tablet by mouth once daily. losartan (COZAAR) 50 mg tablet TAKE ONE TABLET BY MOUTH ONCE DAILY hydroCHLOROthiazide (HYDRODIURIL, ESIDRIX) 25 mg tablet TAKE ONE TABLET BY MOUTH ONCE DAILY potassium chloride ER (KLOR-CON M20) 20 mEq tablet Take 1 tablet by mouth twice daily. COMPOUNDED PRESCRIPTION AutoPAP 5-15 cmH2O with humidification. Assoc dx: GILLIAN G47.33 FAMILY HISTORY Problem Relation Age of Onset - Hypertension Mother - Cancer Father lung bone bladder - Ischemic Heart Disease Maternal Grandmother Social History Substance Use Topics - Smoking status: Never Smoker - Smokeless tobacco: Never Used - Alcohol use Yes Comment: very occasional Review of Systems Constitutional: Negative for chills, fever and weight loss. HENT: Positive for congestion and sore throat. Negative for ear pain and nosebleeds. Respiratory: Positive for cough and shortness of breath. Negative for wheezing. Cardiovascular: Negative for chest pain. Musculoskeletal: Negative for neck pain. Skin: Negative for itching and rash. Objective Blood pressure 124/88, pulse 86, temperature 36.8 ?C (98.2 ?F), temperature source Tympanic, resp. rate 18, weight 134.3 kg (296 lb), last menstrual period 09/03/2015. Component Latest Ref Rng AND Units 09/18/2017 Glucose 74 - 99 mg/dL 73 (L) BUN 7 - 21 mg/dL 13 Creatinine 0.58 - 0.96 mg/dL 0.98 (H) Sodium 136 - 144 mmol/L 139 Potassium 3.7 - 5.1 mmol/L 3.4 (L) Chloride 97 - 105 mmol/L 98 CO2 22 - 30 mmol/L 26 Anion Gap 9 - 18 mmol/L 15 Calcium 8.5 - 10.2 mg/dL 9.6 eGFR- >60 eGFR-All Other Races . >60 Physical Exam Constitutional: She is oriented to person, place, and time and well-developed, well-nourished, and in no distress. Non-toxic appearance. She does not have a sickly appearance. No distress. HENT: Head: Normocephalic and atraumatic. Right Ear: Hearing, tympanic membrane, external ear and ear canal normal. Left Ear: Hearing, tympanic membrane, external ear and ear canal normal. Nose: Nose normal. Mouth/Throat: Uvula is midline, oropharynx is clear and moist and mucous membranes are normal. Eyes: Pupils are equal, round, and reactive to light. Conjunctivae and lids are normal. Right eye exhibits no discharge. Left eye exhibits no discharge. No scleral icterus. Neck: Trachea normal and normal range of motion. Neck supple. Cardiovascular: Normal rate, regular rhythm and normal heart sounds. Pulmonary/Chest: Effort normal. She has no decreased breath sounds. She has wheezes in the right lower field and the left lower field. She has no rhonchi. She has no rales. Improvement in wheezing after nebulizer treatment, patient reported relief. Lymphadenopathy: She has no cervical adenopathy. Neurological: She is alert and oriented to person, place, and time. Skin: No rash noted. She is not diaphoretic. ASSESSMENT/PLAN: 1. Sinobronchitis - ICD9: 473.9, 490, ICD10: J32.9, J40 (primary diagnosis) - Will begin treatment with Doxycline - Supportive care with plenty of fluids, rest, and analgesia prn. - Follow up in 5-7 days if symptoms persist or worsen. - DOXYCYCLINE MONOHYDRATE 100 MG TABLET - ALBUTEROL SULFATE HFA 90 MCG/ACTUATION AEROSOL INHALER Is to notify [facility] of antibiotic as it can alter INR. 2. Wheeze - ICD9: 786.07, ICD10: R06.2 Improvement noted after nebulizer treatment - ALBUTEROL SULFATE 2.5 MG/3 ML (0.083 %) SOLUTION FOR NEBULIZATION Prescription instructions reviewed with patient as applicable. Patient advised if symptoms do not improve or if symptoms worsen sooner, to contact the office for further evaluation by their primary care physician. Potential red flag symptoms discussed with the patient. Reviewed appropriate action plan to take if red flag symptoms occur. Patient agreeable to treatment plan. Kranthi Bhatia APRN.HAT MARKER CNOV Observed: 03/01/2018 Status: COMPLETED Source: [place] 1:00 PM [facility] REPOSITORY Office Visit (WSTR) CARMELO BEST ([id number]) 1970 F Date Time Provider Department 03/01/18 1:00 PM KRANTHI BHATIA ([facility]) [facility] During your visit today, we recorded the following information about you: Temperature Pulse Respiration Blood pressure 98.2 degrees 86/minute 18/minute 124/88 Weight 134.3 kg Kranthi Bhatia APRN.CNP 03/01/2018 3:37 PM Signed Subjective HPI HPI Carmelo Best is a 47 year old female who presents today for CC of cough, sinus pressure/congestion, sore throat, ear. This started 3 weeks ago. Has tried otc medication without relief. Symptoms are worsened by nothing. Risk factors multiple sick exposures at home. Denies possibility of being . nonsmoker. .Patient presents with: Flu Like Symptoms: cough, congestion, bilateral ear pain, sore throat, fever on AND off PAST MEDICAL HISTORY Diagnosis Date - Hypertension - KERVIN (iron deficiency anemia) 03/24/2014 - Left leg DVT (HCC) 02/27/2011 x1 (2010), s/p left foot surgery; x2 (2011) - Pneumonia - Positive occult stool blood test - Snoring PAST SURGICAL HISTORY Procedure Laterality Date - COLONOSCOP W/ OR W/O BRSH SPEC 08/03/2014 Colonoscopy - EGD W/O OR W/BRUSH/WASH 08/03/2014 EGD - HYSTERECTOMY HX 09/2015 - HYSTEROSCOPY BX W/WO DANDC 04/06/15 - INSERT INTRAUTERINE DEVICE 04/06/15 Mirena Insertion - LIGATE FALLOPIAN TUBE 2006 - PAST SURGICAL HISTORY OF Heel spur-left - REMOVAL GALLBLADDER 2000 laparoscopic ALLERGIES Patient has no known allergies. MEDICATIONS warfarin (COUMADIN) 5 mg tablet 10 mg Sun and and 7.5 mg all other days or as directed warfarin (COUMADIN) 5 mg tablet 10 mg Sun and 7.5 mg all other days or as directed VITAMIN D 50,000 unit capsule TAKE ONE CAPSULE BY MOUTH EVERY SUNDAY AND SUNDAY buPROPion XL (WELLBUTRIN XL) 300 mg 24 hr tablet Take 1 tablet by mouth once daily. losartan (COZAAR) 50 mg tablet TAKE ONE TABLET BY MOUTH ONCE DAILY hydroCHLOROthiazide (HYDRODIURIL, ESIDRIX) 25 mg tablet TAKE ONE TABLET BY MOUTH ONCE DAILY potassium chloride ER (KLOR-CON M20) 20 mEq tablet Take 1 tablet by mouth twice daily. COMPOUNDED PRESCRIPTION AutoPAP 5-15 cmH2O with humidification. Assoc dx: GILLIAN G47.33 FAMILY HISTORY Problem Relation Age of Onset - Hypertension Mother - Cancer Father lung bone bladder - Ischemic Heart Disease Maternal Grandmother Social History Substance Use Topics - Smoking status: Never Smoker - Smokeless tobacco: Never Used - Alcohol use Yes Comment: very occasional Review of Systems Constitutional: Negative for chills, fever and weight loss. HENT: Positive for congestion and sore throat. Negative for ear pain and nosebleeds. Respiratory: Positive for cough and shortness of breath. Negative for wheezing. Cardiovascular: Negative for chest pain. Musculoskeletal: Negative for neck pain. Skin: Negative for itching and rash. Objective Blood pressure 124/88, pulse 86, temperature 36.8 ?C (98.2 ?F), temperature source Tympanic, resp. rate 18, weight 134.3 kg (296 lb), last menstrual period 09/03/2015. Component Latest Ref Rng AND Units 09/18/2017 Glucose 74 - 99 mg/dL 73 (L) BUN 7 - 21 mg/dL 13 Creatinine 0.58 - 0.96 mg/dL 0.98 (H) Sodium 136 - 144 mmol/L 139 Potassium 3.7 - 5.1 mmol/L 3.4 (L) Chloride 97 - 105 mmol/L 98 CO2 22 - 30 mmol/L 26 Anion Gap 9 - 18 mmol/L 15 Calcium 8.5 - 10.2 mg/dL 9.6 eGFR- >60 eGFR-All Other Races . >60 Physical Exam Constitutional: She is oriented to person, place, and time and well-developed, well-nourished, and in no distress. Non-toxic appearance. She does not have a sickly appearance. No distress. HENT: Head: Normocephalic and atraumatic. Right Ear: Hearing, tympanic membrane, external ear and ear canal normal. Left Ear: Hearing, tympanic membrane, external ear and ear canal normal. Nose: Nose normal. Mouth/Throat: Uvula is midline, oropharynx is clear and moist and mucous membranes are normal. Eyes: Pupils are equal, round, and reactive to light. Conjunctivae and lids are normal. Right eye exhibits no discharge. Left eye exhibits no discharge. No scleral icterus. Neck: Trachea normal and normal range of motion. Neck supple. Cardiovascular: Normal rate, regular rhythm and normal heart sounds. Pulmonary/Chest: Effort normal. She has no decreased breath sounds. She has wheezes in the right lower field and the left lower field. She has no rhonchi. She has no rales. Improvement in wheezing after nebulizer treatment, patient reported relief. Lymphadenopathy: She has no cervical adenopathy. Neurological: She is alert and oriented to person, place, and time. Skin: No rash noted. She is not diaphoretic. ASSESSMENT/PLAN: 1. Sinobronchitis - ICD9: 473.9, 490, ICD10: J32.9, J40 (primary diagnosis) - Will begin treatment with Doxycline - Supportive care with plenty of fluids, rest, and analgesia prn. - Follow up in 5-7 days if symptoms persist or worsen. - DOXYCYCLINE MONOHYDRATE 100 MG TABLET - ALBUTEROL SULFATE HFA 90 MCG/ACTUATION AEROSOL INHALER Is to notify coumadin clinic of antibiotic as it can alter INR. 2. Wheeze - ICD9: 786.07, ICD10: R06.2 Improvement noted after nebulizer treatment - ALBUTEROL SULFATE 2.5 MG/3 ML (0.083 %) SOLUTION FOR NEBULIZATION Prescription instructions reviewed with patient as applicable. Patient advised if symptoms do not improve or if symptoms worsen sooner, to contact the office for further evaluation by their primary care physician. Potential red flag symptoms discussed with the patient. Reviewed appropriate action plan to take if red flag symptoms occur. Patient agreeable to treatment plan. Kranthi Bahtia APRN.JULISSA Bhatia APRN.JULISSA 03/01/2018 1:42 PM Signed ASSESSMENT/PLAN: 1. Sinobronchitis - ICD9: 473.9, 490, ICD10: J32.9, J40 (primary diagnosis) - Will begin treatment with Doxycline - Supportive care with plenty of fluids, rest, and analgesia prn. - Follow up in 5-7 days if symptoms persist or worsen. - DOXYCYCLINE MONOHYDRATE 100 MG TABLET - ALBUTEROL SULFATE HFA 90 MCG/ACTUATION AEROSOL INHALER Referring Provider: SELF [200] Allergies As of Date: 03/01/2018 (No Known Allergies) Date Reviewed: 03/01/2018 Reviewed by: Kranthi (Shakeel Bhatia - Fully Assessed Reason for Visit: Flu Like Symptoms [267] Cmt: cough, congestion, bilateral ear pain, sore throat, fever on AND off Primary Visit Diagnosis:Sinobronchitis [J32.9, J40] Other Visit Diagnosis:Wheeze [R06.2] Order(s):[] albuterol 2.5 mg /3 mL (0.083 %) 2.5 mg (PROVENTIL)Disp: Rfl: doxycycline monohydrate 100 mg tabletTake 1 tablet by mouth twice daily for 10 days.Disp: 20 tabletRfl: 0 albuterol HFA (PROAIR HFA) 90 mcg/actuation inhalerInhale 2 Puffs as instructed every 4 hours as needed.Disp: 1 InhalerRfl: 0 Prescriptions as of 03/01/2018 Sig: WARFARIN 5 MG TABLET 10 mg Sun and day and 7.* WARFARIN 5 MG TABLET 10 mg Sun and 7.5 mg al* VITAMIN D2 50,000 UNIT CAPSULE TAKE ONE CAPSULE BY MOUTH JOAN* BUPROPION XL 300 MG 24 HR TAB Take 1 tablet by mouth once d* LOSARTAN 50 MG TABLET TAKE ONE TABLET BY MOUTH ONCE* HYDROCHLOROTHIAZIDE 25 MG TAB* TAKE ONE TABLET BY MOUTH ONCE* POTASSIUM CHLORIDE ER 20 MEQ * Take 1 tablet by mouth twice * COMPOUNDED PRESCRIPTION AutoPAP 5-15 cmH2O with humid* DOXYCYCLINE MONOHYDRATE 100 M* Take 1 tablet by mouth twice * ALBUTEROL SULFATE HFA 90 MCG/* Inhale 2 Puffs as instructed * Problem List As Of Date 03/01/2018 Noted Resolved ADJUSTMENT DISORDER WITH DEPRESSED MOOD [F43.21]INVALID FOR* Essential Hypertension, Benign [I10] INVALID FOR* Obesity, Class III, BMI 40-49.9 (morbid obesity*INVALID FOR* Calcaneal spur [M77.30] INVALID FOR* Left leg DVT [I82.402] INVALID FOR* intermediate project manager (current) use of anticoagulants [Z79.*INVALID FOR* KERVIN (iron deficiency anemia) [D50.9] INVALID FOR*09/28/2017 Vitamin D deficiency [E55.9] INVALID FOR* Positive occult stool blood test [R19.5] Benign pigmented mole [D22.9] INVALID FOR* More... Hematuria [R31.9] INVALID FOR* Menorrhagia with irregular cycle [N92.1] INVALID FOR*07/12/2016 History of DVT (deep vein thrombosis) [Z86.718] INVALID FOR* Deep vein thrombosis (DVT) of left lower extrem*INVALID FOR* Steroid-induced hyperglycemia [R73.9, T38.0X5A] INVALID FOR* Obstructive sleep apnea [G47.33] INVALID FOR* Other instructions from your clinician: ASSESSMENT/PLAN: 1. Sinobronchitis - ICD9: 473.9, 490, ICD10: J32.9, J40 (primary diagnosis) - Will begin treatment with Doxycline - Supportive care with plenty of fluids, rest, and analgesia prn. - Follow up in 5-7 days if symptoms persist or worsen. - DOXYCYCLINE MONOHYDRATE 100 MG TABLET - ALBUTEROL SULFATE HFA 90 MCG/ACTUATION AEROSOL INHALER Prescriptions ordered this encounter Disp Refills Start End ALBUTEROL SULFATE 2.5 MG/3 ML (0.083* 03/01/2018 03/01/2018 Route: INHALATION DOXYCYCLINE MONOHYDRATE 100 MG TABLET 20 t* 0 03/01/2018 03/11/2018 Cmt: May transfer to [facility] if less expensive. Route: ORAL Sig: Take 1 tablet by mouth twice daily for 10 days. ALBUTEROL SULFATE HFA 90 MCG/ACTUATI* 1 In* 0 03/01/2018 Route: INHALATION Sig: Inhale 2 Puffs as instructed every 4 hours as needed. Medications Discontinued During This Encounter albuterol (PROVENTIL) 5 mg/mL nebu 1 mL 0 10/08/2015 03/01/2018 Class: Back Office Route: INHALATION Sig: Inhale 0.5 mL as instructed one time only for 1 dose. 1 DOSE NOW - BACK OFFICE. PLACE 0.5 ML PER DROPPER AND 2.5 ML OF NORMAL SALINE INTO RESERVOIR. Disc: Reason for discontinue is not on file. Encounter Status:Closed by KRANTHI BHATIA CNP on 03/01/18 PROTIME Collected: 02/13/2018 Status: F Source: [place] 11:20 AM [facility] REPOSITORY TYPE CODE TESTS RESULT OUT OF RANGE REFERENCE UNITS LAB PSEC 9.7-13.0 sec High PT Sec 17.7 LAB INR 0.9-1.3 High PT INR 1.7 Result Comment: Vitamin K Antagonist (VKA) Therapeutic Range: INR 2 to 3 (Target INR of 2.5) Note: For patients treated with VKA drugs, such as warfarin, the [employer] 2012 Guideline recommends a therapeutic INR range of 2 to 3 (target INR of 2.5). This recommendation includes high-risk patients with antiphospholipid syndrome with previous arterial or venous thromboembolism, current-generation mechanical or bioprosthetic aortic heart valve replacement. Note: Patients with mechanical aortic valve replacement and additional risk factors for thromboembolic events (atrial fibrillation, previous thromboembolism, LV dysfunction, hypercoagulable conditions) or an older generation mechanical AVR (i.e., ball in-Cage) or any mechanical MVR should have a INR therapeutic range of 2.5 to 3.5 (target INR of 3). Napoleon GH, et al. Chest 2012, 141:7S-47S Rusty RA, et al. [facility] 2017, 70: 252-289 Performed By: #### PT #### [facility] [address] [address] PROGRESS Observed: 01/22/2018 Status: COMPLETED Source: [place] 12:34 PM [facility] REPOSITORY HNO ID: [id number] Author: Dinorah Barry LPN Service: (none) Author Type: (none) Type: Progress Notes Filed: 01/22/2018 12:34 PM Note Text: Patient presents for MMR vaccine. Denies any problems at this time. Tolerated injection well. Dinorah Barry LPN CNNURSE Observed: 01/22/2018 Status: COMPLETED Source: [place] 12:30 PM [facility] REPOSITORY Nurse Visit (FAMPWS) CARMELO BEST ([id number]) 1970 F Date Time Provider Department 01/22/18 12:30 PM [facility] N[facility] [place] During your visit today, we recorded the following information about you: Dinorah Barry LPN 01/22/2018 12:34 PM Signed Patient presents for MMR vaccine. Denies any problems at this time. Tolerated injection well. Dinorah Barry LPN Referring Provider: SELF [200] Allergies As of Date: 01/22/2018 (No Known Allergies) Date Reviewed: 01/18/2018 Reviewed by: Carol Lopes Ma - Fully Assessed Reason for Visit: Imm/Inj [58] Primary Visit Diagnosis:Need for vaccination [Z23] Prescriptions as of 01/22/2018 Sig: WARFARIN 5 MG TABLET 10 mg Sun and and 7.* WARFARIN 5 MG TABLET 10 mg Sun and 7.5 mg al* VITAMIN D2 50,000 UNIT CAPSULE TAKE ONE CAPSULE BY MOUTH JOAN* BUPROPION XL 300 MG 24 HR TAB Take 1 tablet by mouth once d* LOSARTAN 50 MG TABLET TAKE ONE TABLET BY MOUTH ONCE* HYDROCHLOROTHIAZIDE 25 MG TAB* TAKE ONE TABLET BY MOUTH ONCE* POTASSIUM CHLORIDE ER 20 MEQ * Take 1 tablet by mouth twice * COMPOUNDED PRESCRIPTION AutoPAP 5-15 cmH2O with humid* Problem List As Of Date 01/22/2018 Noted Resolved ADJUSTMENT DISORDER WITH DEPRESSED MOOD [F43.21]INVALID FOR* Essential Hypertension, Benign [I10] INVALID FOR* Obesity, Class III, BMI 40-49.9 (morbid obesity*INVALID FOR* Calcaneal spur [M77.30] INVALID FOR* Left leg DVT [I82.402] INVALID FOR* intermediate project manager (current) use of anticoagulants [Z79.*INVALID FOR* KERVIN (iron deficiency anemia) [D50.9] INVALID FOR*09/28/2017 Vitamin D deficiency [E55.9] INVALID FOR* Positive occult stool blood test [R19.5] Benign pigmented mole [D22.9] INVALID FOR* More... Hematuria [R31.9] INVALID FOR* Menorrhagia with irregular cycle [N92.1] INVALID FOR*07/12/2016 History of DVT (deep vein thrombosis) [Z86.718] INVALID FOR* Deep vein thrombosis (DVT) of left lower extrem*INVALID FOR* Steroid-induced hyperglycemia [R73.9, T38.0X5A] INVALID FOR* Obstructive sleep apnea [G47.33] INVALID FOR* Encounter Status:Closed by DINORAH BARRY LPN on 01/22/18 PROGRESS Observed: 01/20/2018 Status: COMPLETED Source: [place] 10:50 AM [facility] REPOSITORY HNO ID: [id number] Author: Armando Reilly Service: (none) Author Type: Physician Type: Progress Notes Filed: 01/20/2018 10:55 AM Note Text: Chief Complaint Patient presents with: Physical HPI Carmelo Best is a 47 year old female who presents here today for routine physical . HTN; adherent to current regimen without side effects from medication. No current symptoms. Patient denies any exertional chest pain, dyspnea, palpitations, syncope, orthopnea, edema or paroxysmal nocturnal dyspnea. ACTIVE PROBLEM LIST Adjustment Disorder With Depressed Mood Essential Hypertension, Benign Obesity, Class Iii, Bmi 40-49.9 (Morbid Obesity) (Hcc) Calcaneal Spur Left Leg Dvt (Hcc) Care Analyst (Current) Use of Anticoagulants Vitamin D Deficiency Positive Occult Stool Blood Test Benign Pigmented Mole Hematuria History of Dvt (Deep Vein Thrombosis) Deep Vein Thrombosis (Dvt) of Left Lower Extremity (Hcc) Steroid-Induced Hyperglycemia Obstructive Sleep Apnea Long-term Coumadin for DVT. Past medical history, appointments, medications, allergies reviewed. Previous Medical History PAST MEDICAL HISTORY Diagnosis Date - Hypertension - KERVIN (iron deficiency anemia) 03/24/2014 - Left leg DVT (HCC) 02/27/2011 x1 (2010), s/p left foot surgery; x2 (2011) - Pneumonia - Positive occult stool blood test - Snoring Previous Surgical History PAST SURGICAL HISTORY Procedure Laterality Date - COLONOSCOP W/ OR W/O BRSH SPEC 08/03/2014 Colonoscopy - EGD W/O OR W/BRUSH/WASH 08/03/2014 EGD - HYSTERECTOMY HX 09/2015 - HYSTEROSCOPY BX W/WO DANDC 04/06/15 - INSERT INTRAUTERINE DEVICE 04/06/15 Mirena Insertion - LIGATE FALLOPIAN TUBE 2006 - PAST SURGICAL HISTORY OF Heel spur-left - REMOVAL GALLBLADDER 2000 laparoscopic Family History FAMILY HISTORY Problem Relation Age of Onset - Hypertension Mother - Cancer Father lung bone bladder - Ischemic Heart Disease Maternal Grandmother Patient Allergies ALLERGIES No Known Allergies Current Medications Current Outpatient Prescriptions on File Prior to Visit: warfarin (COUMADIN) 5 mg tablet 10 mg Sun and and 7.5 mg all other days or as directed warfarin (COUMADIN) 5 mg tablet 10 mg Sun and 7.5 mg all other days or as directed VITAMIN D 50,000 unit capsule TAKE ONE CAPSULE BY MOUTH EVERY SUNDAY AND SUNDAY buPROPion XL (WELLBUTRIN XL) 300 mg 24 hr tablet Take 1 tablet bHer weight has gradually tapered downyher weight just happened here mouth once daily. losartan (COZAAR) 50 mg tablet TAKE ONE TABLET BY MOUTH ONCE DAILY hydroCHLOROthiazide (HYDRODIURIL, ESIDRIX) 25 mg tablet TAKE ONE TABLET BY MOUTH ONCE DAILY potassium chloshe is due for a tetanusride ER (KLOR-CON M20) 20 mEq tablet Take 1 tablet by mouth twice daily. COMPOUNDED PRESCRIPTION AuAnnual/as needed.toPAP 5-15 cmH2O with humidification. Assoc dx: GILLIAN G47.33 No current facility-administered medications on file prior to visit. Social History Social History Marital status: Single Spouse name: Years of education: Number of children: 3 Social History Main Topics Smoking status: Never Smoker Smokeless tobacco: Never Used Alcohol use: Yes Comment: very occasional Drug use: No Sexual activity: Yes Partners with: Male control/protection: Tubal Ligation Other Topics Concern Service No Blood Transfusions No Caffeine Concern No Occupational Exposure No Hobby Hazards No Sleep Concern No Stress Concern No Weight Concern Yes Special Diet No Back Care No Exercise No Comment:not regularly Bike Helmet Yes Seat Belt Yes Self-Exams No ROS: General: Feels well, no weight changes, fever, chills. HEENT: No sinus congestion, earache, sore throat. Cardiac: No chest pain, palpitations, shortness of breath Resp: No cough, wheeze. GI: No reflux symptoms, food intolerance, bowel changes. : No urinary frequency, dysuria. MS: No pain or joint complaints. PHYSICAL EXAMINATION BP 115/78 Pulse 100 Temp 36.7 ?C (98 ?F) Resp 18 Ht 172.7 cm (5' 8) Wt 132 kg (291 lb) LMP 09/03/2015 (Approximate) SpO2 99% BMI 44.25 kg/m? General: Alert and oriented, no distress, pleasant and cooperative. Heart: Regular, normal S1 and S2, no murmurs, rubs, or gallops Lungs: Clear to auscultation bilaterally Abdomen: Benign Extremities: Feet/ankles without edema, posterior tibial pulses full and symmetrical No rashes or suspicious skin lesions noted. Health Maintenance List INFLUENZA(1) due on 01/26/2018 MAMMOGRAM due on 09/10/2018 ANNUAL PCP TEAM CHRONIC DISEASE VISIT due on 12/20/2018 BLOOD PRESSURE CONTROLLED due on 01/18/2019 DIABETES SCREEN due on 09/18/2020 LIPID SCREEN due on 09/18/2022 COLORECTAL CANCER SCREENING,SEE MODIFIER due on 08/13/2024 DTAP,TDAP,TD(2 - Td) due on 01/19/2028 Data reviewed Assessment/Plan: (Z00.00) Well adult exam (primary encounter diagnosis) Comment: Plan: (E66.01) Obesity, Class III, BMI 40-49.9 (morbid obesity) (HCC) Comment: Gradual wt loss effore Plan: (Z01.84) Immunity status testing Comment: Plan: RUBEOLA (MEASLES)IGG, MUMPS IGG AB, RUBELLA IGG AB Needs to check on immunity for new job (Z23) Need for yjlyjyunfm-kmwymue-obdcqgzll (Tdap) vaccine Comment: due for tetanus Plan: TDAP VACCINE AGE 7+ IM No medications selected for refill. RTO: annual Armando Reilly MD MEASLES IGG ANTIBODY Collected: 01/18/2018 Status: F Source: [place] 2:20 PM [facility] REPOSITORY TYPE CODE TESTS RESULT OUT OF REFERENCE UNITS RANGE LAB MEASQL Negative Measles IgG Negative Ab, Qual Result Comment: Absence of detectable measles virus IgG antibodies. A negative result generally indicates that the patient has not been infected and is susceptible to measles. If the subject has no history of measles, has not been previously vaccinated and exposure to measles virus is suspected despite a negative finding, a second sample should be collected and tested within one to two weeks later. LAB MEASG AU/mL Measles IgG Antibody 10.5 Result Comment: AU/mL Value interpreted as follows: Negative specimens <25.0 Equivocal specimens 25.0 to 29.9 Positive specimens >29.9 The magnitude of the measured result, above the cutoff, is not indicative of the amount of antibody present. Performed By: #### MEASLG, MUMPSG, RUBIGG #### [facility] [address] [id number] MUMPS IGG AB Collected: 01/18/2018 Status: F Source: [place] 2:20 PM [facility] REPOSITORY TYPE CODE TESTS RESULT OUT OF RANGE REFERENCE UNITS LAB MUMPSR Negative Abnormal Alert Mumps Positive IgG, Qual Result Comment: Presence of detectable mumps virus IgG antibodies. A positive result generally indicates past exposure to mumps virus or previous vaccination. LAB MUMS AU/mL Mumps IgG Ab 247.0 Result Comment: AU/mL Values interpreted as follows: Negative Specimens <9.0 Equivocal specimens 9.0 to 10.9 Positive specimens >10.9 The magnitude of the measured result, above the cutoff, is not indicative of the amount of antibody present. Performed By: #### MEASLG MUMPSG, RUBIGG #### [facility] [address] [place] [address] RUBELLA IGG ANTIBODY Collected: 01/18/2018 Status: F Source: [place] 2:20 PM [facility] REPOSITORY TYPE CODE TESTS RESULT OUT OF RANGE REFERENCE UNITS LAB RUBGQL Negative Abnormal Rubella IgG Positive Alert Ab, Qual Result Comment: Sample is considered positive for IgG antibodies to rubella virus. A positive result indicates previous exposure to Rubella virus or vaccination. LAB RUBQNT Index Value Rubella IgG Ab 4.34 Result Comment: Index values are interpreted as follows: Negative specimens <0.90 Equivocol specimens 0.90 to 0.99 Positive specimens >0.99 The magnitude of the measured result is not indicative of the amount of antibody present. Performed By: #### MEASLG, MUMPSG, RUBIGG #### [facility] [employer] [address] [address] CNOV Observed: 01/18/2018 Status: COMPLETED Source: [place] 2:00 [facility] REPOSITORY Office Visit (FPWADS) CARMELO BEST ([id number]) 1970 F Date Time Provider Department 01/18/18 2:00 PM ARMANDO REILLY During your visit today, we recorded the following information about you: Temperature Pulse Respiration Blood pressure 98 degrees 100/minute 18/minute 115/78 Weight Height 132 kg 1.727 m Armando Reilly MD 01/20/2018 10:55 AM Signed Chief Complaint Patient presents with: Physical HPI Carmelo Best is a 47 year old female who presents here today for routine physical . HTN; adherent to current regimen without side effects from medication. No current symptoms. Patient denies any exertional chest pain, dyspnea, palpitations, syncope, orthopnea, edema or paroxysmal nocturnal dyspnea. ACTIVE PROBLEM LIST Adjustment Disorder With Depressed Mood Essential Hypertension, Benign Obesity, Class Iii, Bmi 40-49.9 (Morbid Obesity) (Hcc) Calcaneal Spur Left Leg Dvt (Hcc) Penitentiary (Current) Use of Anticoagulants Vitamin D Deficiency Positive Occult Stool Blood Test Benign Pigmented Mole Hematuria History of Dvt (Deep Vein Thrombosis) Deep Vein Thrombosis (Dvt) of Left Lower Extremity (Hcc) Steroid-Induced Hyperglycemia Obstructive Sleep Apnea Long-term Coumadin for DVT. Past medical history, appointments, medications, allergies reviewed. Previous Medical History PAST MEDICAL HISTORY Diagnosis Date - Hypertension - KERVIN (iron deficiency anemia) 03/24/2014 - Left leg DVT (HCC) 02/27/2011 x1 (2010), s/p left foot surgery; x2 (2011) - Pneumonia - Positive occult stool blood test - Snoring Previous Surgical History PAST SURGICAL HISTORY Procedure Laterality Date - COLONOSCOP W/ OR W/O BRSH SPEC 08/03/2014 Colonoscopy - EGD W/O OR W/BRUSH/WASH 08/03/2014 EGD - HYSTERECTOMY HX 09/2015 - HYSTEROSCOPY BX W/WO DANDC 04/06/15 - INSERT INTRAUTERINE DEVICE 04/06/15 Mirena Insertion - LIGATE FALLOPIAN TUBE 2006 - PAST SURGICAL HISTORY OF Heel spur-left - REMOVAL GALLBLADDER 2000 laparoscopic Family History FAMILY HISTORY Problem Relation Age of Onset - Hypertension Mother - Cancer Father lung bone bladder - Ischemic Heart Disease Maternal Grandmother Patient Allergies ALLERGIES No Known Allergies Current Medications Current Outpatient Prescriptions on File Prior to Visit: warfarin (COUMADIN) 5 mg tablet 10 mg Sun and and 7.5 mg all other days or as directed warfarin (COUMADIN) 5 mg tablet 10 mg Mon and 7.5 mg all other days or as directed VITAMIN D 50,000 unit capsule TAKE ONE CAPSULE BY MOUTH EVERY SUNDAY AND SUNDAY buPROPion XL (WELLBUTRIN XL) 300 mg 24 hr tablet Take 1 tablet bHer weight has gradually tapered downyher weight just happened here mouth once daily. losartan (COZAAR) 50 mg tablet TAKE ONE TABLET BY MOUTH ONCE DAILY hydroCHLOROthiazide (HYDRODIURIL, ESIDRIX) 25 mg tablet TAKE ONE TABLET BY MOUTH ONCE DAILY potassium chloshe is due for a tetanusride ER (KLOR-CON M20) 20 mEq tablet Take 1 tablet by mouth twice daily. COMPOUNDED PRESCRIPTION AuAnnual/as needed.toPAP 5-15 cmH2O with humidification. Assoc dx: GILLIAN G47.33 No current facility-administered medications on file prior to visit. Social History Social History Marital status: Single Spouse name: Years of education: Number of children: 3 Social History Main Topics Smoking status: Never Smoker Smokeless tobacco: Never Used Alcohol use: Yes Comment: very occasional Drug use: No Sexual activity: Yes Partners with: Male control/protection: Tubal Ligation Other Topics Concern Service No Blood Transfusions No Caffeine Concern No Occupational Exposure No Hobby Hazards No Sleep Concern No Stress Concern No Weight Concern Yes Special Diet No Back Care No Exercise No Comment:not regularly Bike Helmet Yes Seat Belt Yes Self-Exams No ROS: General: Feels well, no weight changes, fever, chills. HEENT: No sinus congestion, earache, sore throat. Cardiac: No chest pain, palpitations, shortness of breath Resp: No cough, wheeze. GI: No reflux symptoms, food intolerance, bowel changes. : No urinary frequency, dysuria. MS: No pain or joint complaints. PHYSICAL EXAMINATION BP 115/78 Pulse 100 Temp 36.7 ?C (98 ?F) Resp 18 Ht 172.7 cm (5' 8) Wt 132 kg (291 lb) LMP 09/03/2015 (Approximate) SpO2 99% BMI 44.25 kg/m? General: Alert and oriented, no distress, pleasant and cooperative. Heart: Regular, normal S1 and S2, no murmurs, rubs, or gallops Lungs: Clear to auscultation bilaterally Abdomen: Benign Extremities: Feet/ankles without edema, posterior tibial pulses full and symmetrical No rashes or suspicious skin lesions noted. Health Maintenance List INFLUENZA(1) due on 01/26/2018 MAMMOGRAM due on 09/10/2018 ANNUAL PCP TEAM CHRONIC DISEASE VISIT due on 12/20/2018 BLOOD PRESSURE CONTROLLED due on 01/18/2019 DIABETES SCREEN due on 09/18/2020 LIPID SCREEN due on 09/18/2022 COLORECTAL CANCER SCREENING,SEE MODIFIER due on 08/13/2024 DTAP,TDAP,TD(2 - Td) due on 01/19/2028 Data reviewed Assessment/Plan: (Z00.00) Well adult exam (primary encounter diagnosis) Comment: Plan: (E66.01) Obesity, Class III, BMI 40-49.9 (morbid obesity) ([facility]) Comment: Gradual wt loss effore Plan: (Z01.84) Immunity status testing Comment: Plan: RUBEOLA (MEASLES)IGG, MUMPS IGG AB, RUBELLA IGG AB Needs to check on immunity for new job (Z23) Need for yxujrxxusq-jruexbg-zscunbako (Tdap) vaccine Comment: due for tetanus Plan: TDAP VACCINE AGE 7+ IM No medications selected for refill. RTO: annual Armando Reilly MD Referring Provider: SELF [200] Allergies As of Date: 01/18/2018 (No Known Allergies) Date Reviewed: 01/18/2018 Reviewed by: Carol Lopes Ma - Fully Assessed Reason for Visit: Physical [83] Primary Visit Diagnosis:Well adult exam [Z00.00] Other Visit Diagnoses:Obesity, Class III, BMI 40-49.9 (morbid obesity) (HCC) [E66.01] Immunity status testing [Z01.84] Need for vehwbcwdio-mdvisdf-osgpjmduu (Tdap) vaccine [Z23] Order(s):RUBEOLA (MEASLES)IGG [SQMEASLG] Order #: [id number] FUTURE MUMPS IGG AB [SQMUMPSG] Order #: [id number] FUTURE RUBELLA IGG AB [SQRUBQNT] Order #: [id number] FUTURE TDAP VACCINE AGE 7+ IM [[id number]] Order #: [id number] Prescriptions as of 01/18/2018 Sig: PHENTERMINE 37.5 MG TABLET Take 1 tablet by mouth once d* WARFARIN 5 MG TABLET 10 mg Sun and and 7.* WARFARIN 5 MG TABLET 10 mg Sun and Thurs 7.5 mg al* VITAMIN D2 50,000 UNIT CAPSULE TAKE ONE CAPSULE BY MOUTH JOAN* BUPROPION XL 300 MG 24 HR TAB Take 1 tablet by mouth once d* LOSARTAN 50 MG TABLET TAKE ONE TABLET BY MOUTH ONCE* HYDROCHLOROTHIAZIDE 25 MG TAB* TAKE ONE TABLET BY MOUTH ONCE* POTASSIUM CHLORIDE ER 20 MEQ * Take 1 tablet by mouth twice * COMPOUNDED PRESCRIPTION AutoPAP 5-15 cmH2O with humid* Problem List As Of Date 01/18/2018 Noted Resolved ADJUSTMENT DISORDER WITH DEPRESSED MOOD [F43.21]INVALID FOR* Essential Hypertension, Benign [I10] INVALID FOR* Obesity, Class III, BMI 40-49.9 (morbid obesity*INVALID FOR* Calcaneal spur [M77.30] INVALID FOR* Left leg DVT [I82.402] INVALID FOR* intermediate project manager (current) use of anticoagulants [Z79.*INVALID FOR* KERVIN (iron deficiency anemia) [D50.9] INVALID FOR*09/28/2017 Vitamin D deficiency [E55.9] INVALID FOR* Positive occult stool blood test [R19.5] Benign pigmented mole [D22.9] INVALID FOR* More... Hematuria [R31.9] INVALID FOR* Menorrhagia with irregular cycle [N92.1] INVALID FOR*07/12/2016 History of DVT (deep vein thrombosis) [Z86.718] INVALID FOR* Deep vein thrombosis (DVT) of left lower extrem*INVALID FOR* Steroid-induced hyperglycemia [R73.9, T38.0X5A] INVALID FOR* Obstructive sleep apnea [G47.33] INVALID FOR* Encounter Status:Closed by AMRLIN REILLY MD on 01/20/18 PROTIME Collected: 01/17/2018 Status: F Source: [place] 8:00 AM [facility] REPOSITORY TYPE CODE TESTS RESULT OUT OF RANGE REFERENCE UNITS LAB PSEC 9.7-13.0 sec High PT Sec 19.4 LAB INR 0.9-1.3 High PT INR 2.0 Result Comment: Vitamin K Antagonist (VKA) Therapeutic Range: INR 2 to 3 (Target INR of 2.5) Note: For patients treated with VKA drugs, such as warfarin, the [employer] 2012 Guideline recommends a therapeutic INR range of 2 to 3 (target INR of 2.5). This recommendation includes high-risk patients with antiphospholipid syndrome with previous arterial or venous thromboembolism, current-generation mechanical or bioprosthetic aortic heart valve replacement. Note: Patients with mechanical aortic valve replacement and additional risk factors for thromboembolic events (atrial fibrillation, previous thromboembolism, LV dysfunction, hypercoagulable conditions) or an older generation mechanical AVR (i.e., ball in-Cage) or any mechanical MVR should have a INR therapeutic range of 2.5 to 3.5 (target INR of 3). Napoleon GH, et al. Chest 2012, 141:7S-47S Rusty RA, et al. [facility] 2017, 70: 252-289 Performed By: #### PT #### [facility] [address] [place], [place] [address] PROTIME Collected: 01/03/2018 Status: F Source: [place] 10:28 AM [facility] REPOSITORY TYPE CODE TESTS RESULT OUT OF REFERENCE UNITS RANGE LAB PSEC 9.7-13.0 sec Test PT sent to [facility]. Result Comment: Account Credited LAB INR 0.9-1.3 Test sent to PT INR [facility]. Result Comment: Account Credited PROTHROMBIN TIME W/INR Collected: 01/03/2018 Status: F Source: [place] 10:25 AM [facility] REPOSITORY TYPE CODE TESTS RESULT OUT OF RANGE REFERENCE UNITS LAB L300.4150 11.7-14.9 SECONDS High PROTIME 30.9 LAB L300.4200 Normal INR 3.0 Performed By: #### L300.3900 #### [facility] [address] [place], [address] CNPN Observed: 01/03/2018 Status: COMPLETED Source: [place] 12:00 AM [facility] REPOSITORY Telephone (FAMPWS) CARMELO BEST ([id number]) 1970 F Date Time Provider Department 01/03/18 PATRICK LOPEZ During your visit today, we recorded the following information about you: Malathi Ivy Ma 01/03/2018 3:28 PM Signed Last INR: INR (POCT) 3.0 ext 01/03/2018 Current dose of coumadin is: 10 mg Mon and Th and 7.5 mg all other days. Last date of dose change: 12/03/17. Previous INR (date and result): 2.8 on 12/18/17 Additional Clinical Information or narrative: ishan Melvin MD 01/03/2018 4:39 PM Signed Patient to continue same dosing and recheck INR in a week Charlee Whalen Ma 01/03/2018 4:46 PM Signed Patient was notified and tracker updated Patient is [place] on vacation so can not get INR checked till 01/14. Dr. Melvin advised ok just to inform patient if cut or bleeding to go to local clinic/Er to have INR checked. Patient verbalized understanding Charlee Whalen Ma Allergies As of Date: 01/03/2018 (No Known Allergies) Date Reviewed: 12/20/2017 Reviewed by: Malathi Ivy Ma - Fully Assessed Reason for Visit: Anticoagulation [8] Primary Visit Diagnosis:Deep vein thrombosis (DVT) of left lower extremity, unspecified chronicity, unspecified vein (HCC) [I82.402] Prescriptions as of 01/03/2018 Sig: PHENTERMINE 37.5 MG TABLET Take 1 tablet by mouth once d* WARFARIN 5 MG TABLET 10 mg Sun and day and 7.* WARFARIN 5 MG TABLET 10 mg Sun and 7.5 mg al* VITAMIN D2 50,000 UNIT CAPSULE TAKE ONE CAPSULE BY MOUTH JOAN* BUPROPION XL 300 MG 24 HR TAB Take 1 tablet by mouth once d* LOSARTAN 50 MG TABLET TAKE ONE TABLET BY MOUTH ONCE* HYDROCHLOROTHIAZIDE 25 MG TAB* TAKE ONE TABLET BY MOUTH ONCE* POTASSIUM CHLORIDE ER 20 MEQ * Take 1 tablet by mouth twice * COMPOUNDED PRESCRIPTION AutoPAP 5-15 cmH2O with humid* Problem List As Of Date 01/03/2018 Noted Resolved ADJUSTMENT DISORDER WITH DEPRESSED MOOD [F43.21]INVALID FOR* Essential Hypertension, Benign [I10] INVALID FOR* Obesity, Class III, BMI 40-49.9 (morbid obesity*INVALID FOR* Calcaneal spur [M77.30] INVALID FOR* Left leg DVT [I82.402] INVALID FOR* custodial (current) use of anticoagulants [Z79.*INVALID FOR* KERVIN (iron deficiency anemia) [D50.9] INVALID FOR*09/28/2017 Vitamin D deficiency [E55.9] INVALID FOR* Positive occult stool blood test [R19.5] Benign pigmented mole [D22.9] INVALID FOR* More... Hematuria [R31.9] INVALID FOR* Menorrhagia with irregular cycle [N92.1] INVALID FOR*07/12/2016 History of DVT (deep vein thrombosis) [Z86.718] INVALID FOR* Deep vein thrombosis (DVT) of left lower extrem*INVALID FOR* Steroid-induced hyperglycemia [R73.9, T38.0X5A] INVALID FOR* Obstructive sleep apnea [G47.33] INVALID FOR* Encounter Status:Closed by CHARLEE WHALEN MA on 01/03/18 CNOV Observed: 12/20/2017 Status: COMPLETED Source: [place] 10:40 AM [facility] REPOSITORY Office Visit (FAMPWS) CARMELO BEST ([id number]) 1970 F Date Time Provider Department 12/20/17 10:40 AM [facility] During your visit today, we recorded the following information about you: Pulse Respiration Blood pressure Weight 68/minute 16/minute 116/84 132.6 kg Patrick Lopez MD 12/21/2017 3:32 PM Signed Chief Complaint Patient presents with: F/U 1 month: weight HPI Carmelo Cooley Jayy is a 47 year old female who presents here today for a 1 mo f/u. Weight - Pt here today finishing her second Rx of Adipex and losing 4 lbs, 20 lb overall. With her treadmill belt breaking she was unable to walk as she did previously due to her hectic work schedule. For her, her exercise is what helps her continue to lose more weight. She continues to eat healthy and medication helps control appetite for the most part. Currently taking Adipex 37.5 mg 1 tab po once daily with minimal dry mouth noted. Would like to look into a Nutrionistt or Weight, No longer program. Previously when she was on [employer] she was covered to go to [facility]. Pt states she will contact [employer] insurance to see what is covered under current benefits. Past medical history, appointments, medications, allergies reviewed. Previous Medical History PAST MEDICAL HISTORY Diagnosis Date - Hypertension - KERVIN (iron deficiency anemia) 03/24/2014 - Left leg DVT (HCC) 02/27/2011 x1 (2010), s/p left foot surgery; x2 (2011) - Pneumonia - Positive occult stool blood test - Snoring Previous Surgical History PAST SURGICAL HISTORY Procedure Laterality Date - COLONOSCOP W/ OR W/O BRSH SPEC 08/03/2014 Colonoscopy - EGD W/O OR W/BRUSH/WASH 08/03/2014 EGD - HYSTERECTOMY HX 09/2015 - HYSTEROSCOPY BX W/WO DANDC 04/06/15 - INSERT INTRAUTERINE DEVICE 04/06/15 Mirena Insertion - LIGATE FALLOPIAN TUBE 2006 - PAST SURGICAL HISTORY OF Heel spur-left - REMOVAL GALLBLADDER 2000 laparoscopic Family History FAMILY HISTORY Problem Relation Age of Onset - Hypertension Mother - Cancer Father lung bone bladder - Ischemic Heart Disease Maternal Grandmother Patient Allergies ALLERGIES No Known Allergies Current Medications Current Outpatient Prescriptions on File Prior to Visit: Phentermine HCl (ADIPEX-P) 37.5 mg capsule Take 1 capsule by mouth once daily for 30 days. warfarin (COUMADIN) 5 mg tablet 10 mg Sun and and 7.5 mg all other days or as directed warfarin (COUMADIN) 5 mg tablet 10 mg Sun and 7.5 mg all other days or as directed VITAMIN D 50,000 unit capsule TAKE ONE CAPSULE BY MOUTH EVERY SUNDAY AND SUNDAY buPROPion XL (WELLBUTRIN XL) 300 mg 24 hr tablet Take 1 tablet by mouth once daily. losartan (COZAAR) 50 mg tablet TAKE ONE TABLET BY MOUTH ONCE DAILY hydroCHLOROthiazide (HYDRODIURIL, ESIDRIX) 25 mg tablet TAKE ONE TABLET BY MOUTH ONCE DAILY potassium chloride ER (KLOR-CON M20) 20 mEq tablet Take 1 tablet by mouth twice daily. COMPOUNDED PRESCRIPTION AutoPAP 5-15 cmH2O with humidification. Assoc dx: IGLLIAN G47.33 No current facility-administered medications on file prior to visit. Social History Social History Marital status: Single Spouse name: Years of education: Number of children: 3 Social History Main Topics Smoking status: Never Smoker Smokeless tobacco: Never Used Alcohol use: Yes Comment: very occasional Drug use: No Sexual activity: Yes Partners with: Male control/protection: Tubal Ligation Other Topics Concern Service No Blood Transfusions No Caffeine Concern No Occupational Exposure No Hobby Hazards No Sleep Concern No Stress Concern No Weight Concern Yes Special Diet No Back Care No Exercise No Comment:not regularly Bike Helmet Yes Seat Belt Yes Self-Exams No EXAM: BP 116/84 (BP Site: Left Arm, BP Position: Sitting, BP Cuff Size: Regular Adult) Pulse 68 Resp 16 Wt 132.6 kg (292 lb 6.4 oz) LMP 09/03/2015 (Approximate) BMI 44.46 kg/m? General Appearance: Well appearing, alert, in no acute distress, well-hydrated, well nourished. and Morbidly obese. Lungs: Lungs clear to auscultation. No wheezing, rhonchi, rales. Heart: RRR without murmur, gallop, or rubs. No ectopy. Health Maintenance List BLOOD PRESSURE CONTROLLED due on 1988 DTAP,TDAP,TD(1 - Tdap) due on 01/11/2008 INFLUENZA(1) due on 01/26/2018 MAMMOGRAM due on 09/10/2018 ANNUAL PCP TEAM CHRONIC DISEASE VISIT due on 11/21/2018 DIABETES SCREEN due on 09/18/2020 LIPID SCREEN due on 09/18/2022 COLORECTAL CANCER SCREENING,SEE MODIFIER due on 08/13/2024 Data reviewed None ASSESSMENT/PLAN: 1. Class 3 obesity with body mass index (BMI) of 45.0 to 49.9 in adult, unspecified obesity type, unspecified whether serious comorbidity present (HCC) - ICD9: 278.00, V85.42, ICD10: E66.9, Z68.42 - 3rd Rx given 1 mo f/u with 3rd Rx of Adipex TABLET given Patrick Lopez MD The documentation for this note was completed by Malathi Ivy Ma acting as scribe for Patrick Lopez MD. December 20, 2017 10:38 AM. Referring Provider: PATRICK LOPEZ [[id number]] Allergies As of Date: 12/20/2017 (No Known Allergies) Date Reviewed: 12/20/2017 Reviewed by: Malathi Ivy Ma - Fully Assessed Reason for Visit: F/U 1 month [1175] Cmt: weight Visit Diagnosis:Class 3 obesity with body mass index (BMI) of 45.0 to 49.9 in adult, unspecified obesity type, unspecified whether serious comorbidity present (HCC) [E66.9, Z68.42] Order(s):[] Phentermine HCl (ADIPEX-P) 37.5 mg tabletTake 1 tablet by mouth once daily for 30 days.Disp: 30 tabletRfl: 0 PROTHROMBIN TIME/PT [SQPT] Order #: [id number] Prescriptions as of 12/20/2017 Sig: WARFARIN 5 MG TABLET 10 mg Sun and and 7.* WARFARIN 5 MG TABLET 10 mg Sun and 7.5 mg al* X VITAMIN D2 50,000 UNIT CAPSULE TAKE ONE CAPSULE BY MOUTH JOAN* BUPROPION XL 300 MG 24 HR TAB Take 1 tablet by mouth once d* LOSARTAN 50 MG TABLET TAKE ONE TABLET BY MOUTH ONCE* HYDROCHLOROTHIAZIDE 25 MG TAB* TAKE ONE TABLET BY MOUTH ONCE* POTASSIUM CHLORIDE ER 20 MEQ * Take 1 tablet by mouth twice * COMPOUNDED PRESCRIPTION AutoPAP 5-15 cmH2O with humid* PHENTERMINE 37.5 MG TABLET Take 1 tablet by mouth once d* Problem List As Of Date 12/20/2017 Noted Resolved ADJUSTMENT DISORDER WITH DEPRESSED MOOD [F43.21]INVALID FOR* Essential Hypertension, Benign [I10] INVALID FOR* Obesity, Class III, BMI 40-49.9 (morbid obesity*INVALID FOR* Calcaneal spur [M77.30] INVALID FOR* Left leg DVT [I82.402] INVALID FOR* custodial (current) use of anticoagulants [Z79.*INVALID FOR* KERVIN (iron deficiency anemia) [D50.9] INVALID FOR*09/28/2017 Vitamin D deficiency [E55.9] INVALID FOR* Positive occult stool blood test [R19.5] Benign pigmented mole [D22.9] INVALID FOR* More... Hematuria [R31.9] INVALID FOR* Menorrhagia with irregular cycle [N92.1] INVALID FOR*07/12/2016 History of DVT (deep vein thrombosis) [Z86.718] INVALID FOR* Deep vein thrombosis (DVT) of left lower extrem*INVALID FOR* Steroid-induced hyperglycemia [R73.9, T38.0X5A] INVALID FOR* Obstructive sleep apnea [G47.33] INVALID FOR* Prescriptions ordered this encounter Disp Refills Start End PHENTERMINE 37.5 MG TABLET 30 t* 0 12/20/2017 01/19/2018 Class: Print RX Route: ORAL Sig: Take 1 tablet by mouth once daily for 30 days. Medications Discontinued During This Encounter Phentermine HCl (ADIPEX-P) 37.5 mg c* 30 c* 0 11/21/2017 12/20/2017 Class: Print RX Cmt: BMI - 45.04 Route: ORAL Sig: Take 1 capsule by mouth once daily for 30 days. Disc: Changing Therapy/Dosage Form Disposition: Return in about 4 weeks (around 01/17/2018). Follow-up and Disposition History Recorded Encounter Status:Closed by PATRICK LOPEZ MD on 12/21/17 PROGRESS Observed: 12/20/2017 Status: COMPLETED Source: [place] 10:38 AM [facility] REPOSITORY HNO ID: [id number] Author: Patrick Lopez Service: (none) Author Type: Physician Type: Progress Notes Filed: 12/21/2017 3:32 PM Note Text: Chief Complaint Patient presents with: F/U 1 month: weight HPI Carmelo Best is a 47 year old female who presents here today for a 1 mo f/u. Weight - Pt here today finishing her second Rx of Adipex and losing 4 lbs, 20 lb overall. With her treadmill belt breaking she was unable to walk as she did previously due to her hectic work schedule. For her, her exercise is what helps her continue to lose more weight. She continues to eat healthy and medication helps control appetite for the most part. Currently taking Adipex 37.5 mg 1 tab po once daily with minimal dry mouth noted. Would like to look into a Nutrionistt or Weight, No longer program. Previously when she was on [employer] she was covered to go to [facility]. Pt states she will contact [employer] insurance to see what is covered under current benefits. Past medical history, appointments, medications, allergies reviewed. Previous Medical History PAST MEDICAL HISTORY Diagnosis Date - Hypertension - KERVIN (iron deficiency anemia) 03/24/2014 - Left leg DVT (HCC) 02/27/2011 x1 (2010), s/p left foot surgery; x2 (2011) - Pneumonia - Positive occult stool blood test - Snoring Previous Surgical History PAST SURGICAL HISTORY Procedure Laterality Date - COLONOSCOP W/ OR W/O BRSH SPEC 08/03/2014 Colonoscopy - EGD W/O OR W/BRUSH/WASH 08/03/2014 EGD - HYSTERECTOMY HX 09/2015 - HYSTEROSCOPY BX W/WO DANDC 04/06/15 - INSERT INTRAUTERINE DEVICE 04/06/15 Mirena Insertion - LIGATE FALLOPIAN TUBE 2006 - PAST SURGICAL HISTORY OF Heel spur-left - REMOVAL GALLBLADDER 2000 laparoscopic Family History FAMILY HISTORY Problem Relation Age of Onset - Hypertension Mother - Cancer Father lung bone bladder - Ischemic Heart Disease Maternal Grandmother Patient Allergies ALLERGIES No Known Allergies Current Medications Current Outpatient Prescriptions on File Prior to Visit: Phentermine HCl (ADIPEX-P) 37.5 mg capsule Take 1 capsule by mouth once daily for 30 days. warfarin (COUMADIN) 5 mg tablet 10 mg Sun and and 7.5 mg all other days or as directed warfarin (COUMADIN) 5 mg tablet 10 mg Sun and 7.5 mg all other days or as directed VITAMIN D 50,000 unit capsule TAKE ONE CAPSULE BY MOUTH EVERY SUNDAY AND SUNDAY buPROPion XL (WELLBUTRIN XL) 300 mg 24 hr tablet Take 1 tablet by mouth once daily. losartan (COZAAR) 50 mg tablet TAKE ONE TABLET BY MOUTH ONCE DAILY hydroCHLOROthiazide (HYDRODIURIL, ESIDRIX) 25 mg tablet TAKE ONE TABLET BY MOUTH ONCE DAILY potassium chloride ER (KLOR-CON M20) 20 mEq tablet Take 1 tablet by mouth twice daily. COMPOUNDED PRESCRIPTION AutoPAP 5-15 cmH2O with humidification. Assoc dx: GILLIAN G47.33 No current facility-administered medications on file prior to visit. Social History Social History Marital status: Single Spouse name: Years of education: Number of children: 3 Social History Main Topics Smoking status: Never Smoker Smokeless tobacco: Never Used Alcohol use: Yes Comment: very occasional Drug use: No Sexual activity: Yes Partners with: Male control/protection: Tubal Ligation Other Topics Concern Service No Blood Transfusions No Caffeine Concern No Occupational Exposure No Hobby Hazards No Sleep Concern No Stress Concern No Weight Concern Yes Special Diet No Back Care No Exercise No Comment:not regularly Bike Helmet Yes Seat Belt Yes Self-Exams No EXAM: BP 116/84 (BP Site: Left Arm, BP Position: Sitting, BP Cuff Size: Regular Adult) Pulse 68 Resp 16 Wt 132.6 kg (292 lb 6.4 oz) LMP 09/03/2015 (Approximate) BMI 44.46 kg/m? General Appearance: Well appearing, alert, in no acute distress, well-hydrated, well nourished. and Morbidly obese. Lungs: Lungs clear to auscultation. No wheezing, rhonchi, rales. Heart: RRR without murmur, gallop, or rubs. No ectopy. Health Maintenance List BLOOD PRESSURE CONTROLLED due on 1988 DTAP,TDAP,TD(1 - Tdap) due on 01/11/2008 INFLUENZA(1) due on 01/26/2018 MAMMOGRAM due on 09/10/2018 ANNUAL PCP TEAM CHRONIC DISEASE VISIT due on 11/21/2018 DIABETES SCREEN due on 09/18/2020 LIPID SCREEN due on 09/18/2022 COLORECTAL CANCER SCREENING,SEE MODIFIER due on 08/13/2024 Data reviewed None ASSESSMENT/PLAN: 1. Class 3 obesity with body mass index (BMI) of 45.0 to 49.9 in adult, unspecified obesity type, unspecified whether serious comorbidity present (HCC) - ICD9: 278.00, V85.42, ICD10: E66.9, Z68.42 - 3rd Rx given 1 mo f/u with 3rd Rx of Adipex TABLET given Patrick Lopez MD The documentation for this note was completed by Malathi Ivy Ma acting as scribe for Patrick Lopez MD. December 20, 2017 10:38 AM. PROTIME Collected: 12/18/2017 Status: F Source: [place] [facility] REPOSITORY TYPE CODE TESTS RESULT OUT OF RANGE REFERENCE UNITS LAB PSEC 9.7-13.0 sec High PT Sec 27.5 LAB INR 0.9-1.3 High PT INR 2.8 Result Comment: Vitamin K Antagonist (VKA) Therapeutic Range: INR 2 to 3 (Target INR of 2.5) Note: For patients treated with VKA drugs, such as warfarin, the [employer] 2012 Guideline recommends a therapeutic INR range of 2 to 3 (target INR of 2.5). This recommendation includes high-risk patients with antiphospholipid syndrome with previous arterial or venous thromboembolism, current-generation mechanical or bioprosthetic aortic heart valve replacement. Note: Patients with mechanical aortic valve replacement and additional risk factors for thromboembolic events (atrial fibrillation, previous thromboembolism, LV dysfunction, hypercoagulable conditions) or an older generation mechanical AVR (i.e., ball in-Cage) or any mechanical MVR should have a INR therapeutic range of 2.5 to 3.5 (target INR of 3). ced Beck. Chest 2012, 141:7S-47S Rusty VILLALTA et ange. [facility] 2017, 70: 252-289 Performed By: #### PT #### [facility] [address] [place], [place] [address] PROTIME Collected: 12/01/2017 Status: F Source: [place] 10:32 AM [facility] REPOSITORY TYPE CODE TESTS RESULT OUT OF RANGE REFERENCE UNITS LAB PSEC 9.7-13.0 sec High PT Sec 27.4 LAB INR 0.9-1.3 High PT INR 2.8 Result Comment: Vitamin K Antagonist (VKA) Therapeutic Range: INR 2 to 3 (Target INR of 2.5) Note: For patients treated with VKA drugs, such as warfarin, the [employer] 2012 Guideline recommends a therapeutic INR range of 2 to 3 (target INR of 2.5). This recommendation includes high-risk patients with antiphospholipid syndrome with previous arterial or venous thromboembolism, current-generation mechanical or bioprosthetic aortic heart valve replacement. Note: Patients with mechanical aortic valve replacement and additional risk factors for thromboembolic events (atrial fibrillation, previous thromboembolism, LV dysfunction, hypercoagulable conditions) or an older generation mechanical AVR (i.e., ball in-Cage) or any mechanical MVR should have a INR therapeutic range of 2.5 to 3.5 (target INR of 3). ced Beck. Chest 2012, 141:7S-47S Rusty VILLALTA et al. [facility] 2017, 70: 252-289 Performed By: #### PT #### [facility] [address] [place], [place] [address] CNOV Observed: 11/21/2017 Status: COMPLETED Source: [place] 9:20 AM [facility] REPOSITORY Office Visit (FAMPWS) CARMELO BEST ([id number]) 1970 F Date Time Provider Department 11/21/17 9:20 AM PATRICK LOPEZ [facility]AMPWS During your visit today, we recorded the following information about you: Pulse Respiration Blood pressure Weight 60/minute 16/minute 118/84 134.4 kg Patrick Lopez MD 11/21/2017 9:33 AM Signed Chief Complaint Patient presents with: F/U 1 month HPI Carmelo Cooley Jayy is a 47 year old female who presents here today for a 1 mo f/u. Here today for completion of her first month of Adipex and to receive 2nd prescription. Weight - Starting weight of 312 lbs and today weighs 296.2 lbs, total loss of 16 lbs in 1 mo. Pt states that the medication curbs her appetite and she doesn't want to eat a lot but does due to cooking meals for her family. Has been watching what she does eat, eating fish, chicken, fruits and vegetables. Has been walking couple times a day (am/pm) for 45 min depending on her schedule. Has 3 acres to take care of at home and a pool. States that she is drinking a lot of water. Drinks occasional glass of pop, but much less then previously. Notes one side effect of dry mouth, but tolerable with drinking fluids. Past medical history, appointments, medications, allergies reviewed. Previous Medical History PAST MEDICAL HISTORY Diagnosis Date - Hypertension - KERVIN (iron deficiency anemia) 03/24/2014 - Left leg DVT (HCC) 02/27/2011 x1 (2010), s/p left foot surgery; x2 (2011) - Pneumonia - Positive occult stool blood test - Snoring Previous Surgical History PAST SURGICAL HISTORY Procedure Laterality Date - COLONOSCOP W/ OR W/O BRSH SPEC 08/03/2014 Colonoscopy - EGD W/O OR W/BRUSH/WASH 08/03/2014 EGD - HYSTERECTOMY HX 09/2015 - HYSTEROSCOPY BX W/WO DANDC 04/06/15 - INSERT INTRAUTERINE DEVICE 04/06/15 Mirena Insertion - LIGATE FALLOPIAN TUBE 2006 - PAST SURGICAL HISTORY OF Heel spur-left - REMOVAL GALLBLADDER 2000 laparoscopic Family History FAMILY HISTORY Problem Relation Age of Onset - Hypertension Mother - Cancer Father lung bone bladder - Ischemic Heart Disease Maternal Grandmother Patient Allergies ALLERGIES No Known Allergies Current Medications Current Outpatient Prescriptions on File Prior to Visit: warfarin (COUMADIN) 5 mg tablet 10 mg Sun and and 7.5 mg all other days or as directed warfarin (COUMADIN) 5 mg tablet 10 mg Sun and 7.5 mg all other days or as directed VITAMIN D 50,000 unit capsule TAKE ONE CAPSULE BY MOUTH EVERY SUNDAY AND SUNDAY buPROPion XL (WELLBUTRIN XL) 300 mg 24 hr tablet Take 1 tablet by mouth once daily. losartan (COZAAR) 50 mg tablet TAKE ONE TABLET BY MOUTH ONCE DAILY hydroCHLOROthiazide (HYDRODIURIL, ESIDRIX) 25 mg tablet TAKE ONE TABLET BY MOUTH ONCE DAILY potassium chloride ER (KLOR-CON M20) 20 mEq tablet Take 1 tablet by mouth twice daily. COMPOUNDED PRESCRIPTION AutoPAP 5-15 cmH2O with humidification. Assoc dx: GILLIAN G47.33 No current facility-administered medications on file prior to visit. Social History Social History Marital status: Single Spouse name: Years of education: Number of children: 3 Social History Main Topics Smoking status: Never Smoker Smokeless tobacco: Never Used Alcohol use: Yes Comment: very occasional Drug use: No Sexual activity: Yes Partners with: Male control/protection: Tubal Ligation Other Topics Concern Service No Blood Transfusions No Caffeine Concern No Occupational Exposure No Hobby Hazards No Sleep Concern No Stress Concern No Weight Concern Yes Special Diet No Back Care No Exercise No Comment:not regularly Bike Helmet Yes Seat Belt Yes Self-Exams No EXAM: BP 118/84 (BP Site: Left Arm, BP Position: Sitting, BP Cuff Size: Regular Adult) Pulse 60 Resp 16 Wt 134.4 kg (296 lb 3.2 oz) LMP 09/03/2015 (Approximate) BMI 45.04 kg/m? General Appearance: Well appearing, alert, in no acute distress, well-hydrated, well nourished., Obese. Lungs: Lungs clear to auscultation. No wheezing, rhonchi, rales. Heart: RRR without murmur, gallop, or rubs. No ectopy. Health Maintenance List DTAP,TDAP,TD(1 - Tdap) due on 01/11/2008 MAMMOGRAM due on 09/10/2018 DIABETES SCREEN due on 09/18/2020 LIPID SCREEN due on 09/18/2022 COLORECTAL CANCER SCREENING,SEE MODIFIER due on 08/13/2024 INFLUENZA Completed Data reviewed None ASSESSMENT/PLAN: 1. Class 3 obesity with body mass index (BMI) of 45.0 to 49.9 in adult, unspecified obesity type, unspecified whether serious comorbidity present (HCC) - ICD9: 278.00, V85.42, ICD10: E66.9, Z68.42 - Continue medication - PHENTERMINE 37.5 MG CAPSULE 1 mo f/u Patrick Lopez MD The documentation for this note was completed by Malathi Ivy Ma acting as scribe for Patrick Lopez MD. November 21, 2017 9:19 AM. Referring Provider: PATRICK LOPEZ [[id number]] Allergies As of Date: 11/21/2017 (No Known Allergies) Date Reviewed: 11/21/2017 Reviewed by: Malathi Ivy Ma - Fully Assessed Reason for Visit: F/U 1 month [4005] Visit Diagnosis:Class 3 obesity with body mass index (BMI) of 45.0 to 49.9 in adult, unspecified obesity type, unspecified whether serious comorbidity present (HCC) [E66.9, Z68.42] Order(s):Phentermine HCl (ADIPEX-P) 37.5 mg capsuleTake 1 capsule by mouth once daily for 30 days.Disp: 30 capsuleRfl: 0 Prescriptions as of 11/21/2017 Sig: WARFARIN 5 MG TABLET 10 mg Mon and day and 7.* WARFARIN 5 MG TABLET 10 mg Mon and Thurs 7.5 mg al* VITAMIN D2 50,000 UNIT CAPSULE TAKE ONE CAPSULE BY MOUTH JOAN* BUPROPION XL 300 MG 24 HR TAB Take 1 tablet by mouth once d* LOSARTAN 50 MG TABLET TAKE ONE TABLET BY MOUTH ONCE* HYDROCHLOROTHIAZIDE 25 MG TAB* TAKE ONE TABLET BY MOUTH ONCE* POTASSIUM CHLORIDE ER 20 MEQ * Take 1 tablet by mouth twice * COMPOUNDED PRESCRIPTION AutoPAP 5-15 cmH2O with humid* PHENTERMINE 37.5 MG CAPSULE Take 1 capsule by mouth once * Problem List As Of Date 11/21/2017 Noted Resolved ADJUSTMENT DISORDER WITH DEPRESSED MOOD [F43.21]INVALID FOR* Essential Hypertension, Benign [I10] INVALID FOR* Obesity, Class III, BMI 40-49.9 (morbid obesity*INVALID FOR* Calcaneal spur [M77.30] INVALID FOR* Left leg DVT [I82.402] INVALID FOR* intermediate project manager (current) use of anticoagulants [Z79.*INVALID FOR* KERVIN (iron deficiency anemia) [D50.9] INVALID FOR*09/28/2017 Vitamin D deficiency [E55.9] INVALID FOR* Positive occult stool blood test [R19.5] Benign pigmented mole [D22.9] INVALID FOR* More... Hematuria [R31.9] INVALID FOR* Menorrhagia with irregular cycle [N92.1] INVALID FOR*07/12/2016 History of DVT (deep vein thrombosis) [Z86.718] INVALID FOR* Deep vein thrombosis (DVT) of left lower extrem*INVALID FOR* Steroid-induced hyperglycemia [R73.9, T38.0X5A] INVALID FOR* Obstructive sleep apnea [G47.33] INVALID FOR* Prescriptions ordered this encounter Disp Refills Start End PHENTERMINE 37.5 MG CAPSULE 30 c* 0 11/21/2017 12/21/2017 Class: Print RX Cmt: BMI - 45.04 Route: ORAL Sig: Take 1 capsule by mouth once daily for 30 days. Medications Discontinued During This Encounter Phentermine HCl (ADIPEX-P) 37.5 mg c* 30 c* 0 10/19/2017 11/21/2017 Class: Print RX Cmt: BMI 47 Route: ORAL Sig: Take 1 capsule by mouth once daily for 30 days. Disc: Reason for discontinue is not on file. Disposition: Return in about 4 weeks (around 12/19/2017). Follow-up and Disposition History Recorded Encounter Status:Closed by PATRICK LOPEZ MD on 11/21/17 PROGRESS Observed: 11/21/2017 Status: COMPLETED Source: [place] 9:19 AM [facility] REPOSITORY HNO ID: [id number] Author: Patrick Lopez Service: (none) Author Type: Physician Type: Progress Notes Filed: 11/21/2017 9:33 AM Note Text: Chief Complaint Patient presents with: F/U 1 month HPI Carmelo Cooley Jayy is a 47 year old female who presents here today for a 1 mo f/u. Here today for completion of her first month of Adipex and to receive 2nd prescription. Weight - Starting weight of 312 lbs and today weighs 296.2 lbs, total loss of 16 lbs in 1 mo. Pt states that the medication curbs her appetite and she doesn't want to eat a lot but does due to cooking meals for her family. Has been watching what she does eat, eating fish, chicken, fruits and vegetables. Has been walking couple times a day (am/pm) for 45 min depending on her schedule. Has 3 acres to take care of at home and a pool. States that she is drinking a lot of water. Drinks occasional glass of pop, but much less then previously. Notes one side effect of dry mouth, but tolerable with drinking fluids. Past medical history, appointments, medications, allergies reviewed. Previous Medical History PAST MEDICAL HISTORY Diagnosis Date - Hypertension - KERVIN (iron deficiency anemia) 03/24/2014 - Left leg DVT (HCC) 02/27/2011 x1 (2010), s/p left foot surgery; x2 (2011) - Pneumonia - Positive occult stool blood test - Snoring Previous Surgical History PAST SURGICAL HISTORY Procedure Laterality Date - COLONOSCOP W/ OR W/O BRSH SPEC 08/03/2014 Colonoscopy - EGD W/O OR W/BRUSH/WASH 08/03/2014 EGD - HYSTERECTOMY HX 09/2015 - HYSTEROSCOPY BX W/WO DANDC 04/06/15 - INSERT INTRAUTERINE DEVICE 04/06/15 Mirena Insertion - LIGATE FALLOPIAN TUBE 2006 - PAST SURGICAL HISTORY OF Heel spur-left - REMOVAL GALLBLADDER 2000 laparoscopic Family History FAMILY HISTORY Problem Relation Age of Onset - Hypertension Mother - Cancer Father lung bone bladder - Ischemic Heart Disease Maternal Grandmother Patient Allergies ALLERGIES No Known Allergies Current Medications Current Outpatient Prescriptions on File Prior to Visit: warfarin (COUMADIN) 5 mg tablet 10 mg Sun and and 7.5 mg all other days or as directed warfarin (COUMADIN) 5 mg tablet 10 mg Sun and 7.5 mg all other days or as directed VITAMIN D 50,000 unit capsule TAKE ONE CAPSULE BY MOUTH EVERY SUNDAY AND SUNDAY buPROPion XL (WELLBUTRIN XL) 300 mg 24 hr tablet Take 1 tablet by mouth once daily. losartan (COZAAR) 50 mg tablet TAKE ONE TABLET BY MOUTH ONCE DAILY hydroCHLOROthiazide (HYDRODIURIL, ESIDRIX) 25 mg tablet TAKE ONE TABLET BY MOUTH ONCE DAILY potassium chloride ER (KLOR-CON M20) 20 mEq tablet Take 1 tablet by mouth twice daily. COMPOUNDED PRESCRIPTION AutoPAP 5-15 cmH2O with humidification. Assoc dx: GILLIAN G47.33 No current facility-administered medications on file prior to visit. Social History Social History Marital status: Single Spouse name: Years of education: Number of children: 3 Social History Main Topics Smoking status: Never Smoker Smokeless tobacco: Never Used Alcohol use: Yes Comment: very occasional Drug use: No Sexual activity: Yes Partners with: Male control/protection: Tubal Ligation Other Topics Concern Service No Blood Transfusions No Caffeine Concern No Occupational Exposure No Hobby Hazards No Sleep Concern No Stress Concern No Weight Concern Yes Special Diet No Back Care No Exercise No Comment:not regularly Bike Helmet Yes Seat Belt Yes Self-Exams No EXAM: BP 118/84 (BP Site: Left Arm, BP Position: Sitting, BP Cuff Size: Regular Adult) Pulse 60 Resp 16 Wt 134.4 kg (296 lb 3.2 oz) LMP 09/03/2015 (Approximate) BMI 45.04 kg/m? General Appearance: Well appearing, alert, in no acute distress, well-hydrated, well nourished., Obese. Lungs: Lungs clear to auscultation. No wheezing, rhonchi, rales. Heart: RRR without murmur, gallop, or rubs. No ectopy. Health Maintenance List DTAP,TDAP,TD(1 - Tdap) due on 01/11/2008 MAMMOGRAM due on 09/10/2018 DIABETES SCREEN due on 09/18/2020 LIPID SCREEN due on 09/18/2022 COLORECTAL CANCER SCREENING,SEE MODIFIER due on 08/13/2024 INFLUENZA Completed Data reviewed None ASSESSMENT/PLAN: 1. Class 3 obesity with body mass index (BMI) of 45.0 to 49.9 in adult, unspecified obesity type, unspecified whether serious comorbidity present (HCC) - ICD9: 278.00, V85.42, ICD10: E66.9, Z68.42 - Continue medication - PHENTERMINE 37.5 MG CAPSULE 1 mo f/u Patrick Lopez MD The documentation for this note was completed by Malathi Ivy Ma acting as scribe for Patrick Lopez MD. November 21, 2017 9:19 AM. PROTIME Collected: 11/21/2017 Status: F Source: [place] 9:00 AM [facility] REPOSITORY TYPE CODE TESTS RESULT OUT OF RANGE REFERENCE UNITS LAB PSEC 9.7-13.0 sec High PT Sec 27.9 LAB INR 0.9-1.3 High PT INR 2.9 Result Comment: Vitamin K Antagonist (VKA) Therapeutic Range: INR 2 to 3 (Target INR of 2.5) Note: For patients treated with VKA drugs, such as warfarin, the [employer] 2012 Guideline recommends a therapeutic INR range of 2 to 3 (target INR of 2.5). This recommendation includes high-risk patients with antiphospholipid syndrome with previous arterial or venous thromboembolism, current-generation mechanical or bioprosthetic aortic heart valve replacement. Note: Patients with mechanical aortic valve replacement and additional risk factors for thromboembolic events (atrial fibrillation, previous thromboembolism, LV dysfunction, hypercoagulable conditions) or an older generation mechanical AVR (i.e., ball in-Cage) or any mechanical MVR should have a INR therapeutic range of 2.5 to 3.5 (target INR of 3). Gueduardott GH, et al. Chest 2012, 141:7S-47S Rusty RA, et al. [facility] 2017, 70: 252-289 Performed By: #### PT #### [facility] [address], [place] [address] PROTIME Collected: 11/03/2017 Status: F Source: [place] 8:05 AM [facility] REPOSITORY TYPE CODE TESTS RESULT OUT OF RANGE REFERENCE UNITS LAB PSEC 9.7-13.0 sec High PT Sec 24.9 LAB INR 0.9-1.3 High PT INR 2.6 Result Comment: Vitamin K Antagonist (VKA) Therapeutic Range: INR 2 to 3 (Target INR of 2.5) Note: For patients treated with VKA drugs, such as warfarin, the [employer] 2012 Guideline recommends a therapeutic INR range of 2 to 3 (target INR of 2.5). This recommendation includes high-risk patients with antiphospholipid syndrome with previous arterial or venous thromboembolism, current-generation mechanical or bioprosthetic aortic heart valve replacement. Note: Patients with mechanical aortic valve replacement and additional risk factors for thromboembolic events (atrial fibrillation, previous thromboembolism, LV dysfunction, hypercoagulable conditions) or an older generation mechanical AVR (i.e., ball in-Cage) or any mechanical MVR should have a INR therapeutic range of 2.5 to 3.5 (target INR of 3). Napoleon GH, et al. Chest 2012, 141:7S-47S Rusty RA, et al. [facility] 2017, 70: 252-289 Performed By: #### PT #### [facility] [address] [place], [place] [address] PROGRESS Observed: 10/16/2017 Status: COMPLETED Source: [place] 8:07 AM [facility] REPOSITORY HNO ID: [id number] Author: Patrick Lopez Service: (none) Author Type: Physician Type: Progress Notes Filed: 10/16/2017 10:39 AM Note Text: Chief Complaint Patient presents with: Medication Follow-up HPI Carmelo Best is a 47 year old female who presents here today for weight. Obesity: has been trying to exercise with walking and doing her home exercise machine 4 days a week. Has been watching diet, watching sugar intake. Does drink pop, trying to limit the amount of that per day. Pt would like to start a medication to help her start to lose weight. Has never used any weight loss medications before. Had a few friends that have used Adipex and they had good results with the medication. Pt states she feels she has hit a plateau with the weight. Eating more salads, cucumbers, smoothies, bananas. Past medical history, appointments, medications, allergies reviewed. Previous Medical History PAST MEDICAL HISTORY Diagnosis Date - Hypertension - KERVIN (iron deficiency anemia) 03/24/2014 - Left leg DVT (HCC) 02/27/2011 x1 (2010), s/p left foot surgery; x2 (2011) - Pneumonia - Positive occult stool blood test - Snoring Previous Surgical History PAST SURGICAL HISTORY Procedure Laterality Date - COLONOSCOP W/ OR W/O BRSH SPEC 08/03/2014 Colonoscopy - EGD W/O OR W/BRUSH/WASH 08/03/2014 EGD - HYSTERECTOMY HX 09/2015 - HYSTEROSCOPY BX W/WO DANDC 04/06/15 - INSERT INTRAUTERINE DEVICE 04/06/15 Mirena Insertion - LIGATE FALLOPIAN TUBE 2006 - PAST SURGICAL HISTORY OF Heel spur-left - REMOVAL GALLBLADDER 2000 laparoscopic Family History FAMILY HISTORY Problem Relation Age of Onset - Hypertension Mother - Cancer Father lung bone bladder - Ischemic Heart Disease Maternal Grandmother Patient Allergies ALLERGIES No Known Allergies Current Medications Current Outpatient Prescriptions on File Prior to Visit: warfarin (COUMADIN) 5 mg tablet 10 mg Mon and 7.5 mg all other days or as directed warfarin (COUMADIN) 5 mg tablet 10 mg Mon and 7.5 mg all other days or as directed VITAMIN D 50,000 unit capsule TAKE ONE CAPSULE BY MOUTH EVERY SUNDAY AND SUNDAY buPROPion XL (WELLBUTRIN XL) 300 mg 24 hr tablet Take 1 tablet by mouth once daily. losartan (COZAAR) 50 mg tablet TAKE ONE TABLET BY MOUTH ONCE DAILY hydroCHLOROthiazide (HYDRODIURIL, ESIDRIX) 25 mg tablet TAKE ONE TABLET BY MOUTH ONCE DAILY potassium chloride ER (KLOR-CON M20) 20 mEq tablet Take 1 tablet by mouth twice daily. COMPOUNDED PRESCRIPTION AutoPAP 5-15 cmH2O with humidification. Assoc dx: GILLIAN G47.33 No current facility-administered medications on file prior to visit. Social History Social History Marital status: Single Spouse name: Years of education: Number of children: 3 Social History Main Topics Smoking status: Never Smoker Smokeless tobacco: Never Used Alcohol use: Yes Comment: very occasional Drug use: No Sexual activity: Yes Partners with: Male control/protection: Tubal Ligation Other Topics Concern Service No Blood Transfusions No Caffeine Concern No Occupational Exposure No Hobby Hazards No Sleep Concern No Stress Concern No Weight Concern Yes Special Diet No Back Care No Exercise No Comment:not regularly Bike Helmet Yes Seat Belt Yes Self-Exams No EXAM: BP 124/70 Pulse 74 Resp 18 Ht 172.7 cm (5' 8) Wt (!) 141.5 kg (312 lb) LMP 09/03/2015 (Approximate) BMI 47.44 kg/m? General Appearance: Well appearing, alert, in no acute distress, well-hydrated, well nourished., Obese. Lungs: Lungs clear to auscultation. No wheezing, rhonchi, rales. Heart: RRR without murmur, gallop, or rubs. No ectopy. Health Maintenance List DTAP,TDAP,TD(1 - Tdap) due on 01/11/2008 MAMMOGRAM due on 09/10/2018 DIABETES SCREEN due on 09/18/2020 LIPID SCREEN due on 09/18/2022 COLORECTAL CANCER SCREENING,SEE MODIFIER due on 08/13/2024 INFLUENZA Completed Data reviewed Appointment on 10/05/2017 Component Date Value - PT Sec 10/05/2017 19.8* - PT INR 10/05/2017 2.0* Anticoagulation Visit on 09/28/2017 Component Date Value - INR (POCT) 09/28/2017 3.3* - Internal Quality Check 09/28/2017 Acceptable Appointment on 09/18/2017 Component Date Value - PT Sec 09/18/2017 22.5* - PT INR 09/18/2017 2.3* Appointment on 09/18/2017 Component Date Value - Glucose 09/18/2017 73* - BUN 09/18/2017 13 - Creatinine 09/18/2017 0.98* - Sodium 09/18/2017 139 - Potassium 09/18/2017 3.4* - Chloride 09/18/2017 98 - CO2 09/18/2017 26 - Anion Gap 09/18/2017 15 - Calcium 09/18/2017 9.6 - eGFR- 09/18/2017 >60 - eGFR-All Other Races 09/18/2017 >60 - Hemoglobin A1C 09/18/2017 5.7* - Estimated Average Glucose 09/18/2017 117 - Cholesterol, Total 09/18/2017 153 - Triglyceride 09/18/2017 185* - HDL Cholesterol 09/18/2017 48 - LDL Cholesterol 09/18/2017 68 - Non HDL Cholesterol 09/18/2017 105 - Fasting Time 09/18/2017 5 - VLDL Cholesterol 09/18/2017 37* - TC:HDL Ratio 09/18/2017 3.19 - LDL:HDL Ratio 09/18/2017 1.42 Anticoagulation Visit on 09/11/2017 Component Date Value - INR (POCT) 09/11/2017 3.2* - Internal Quality Check 09/11/2017 Acceptable ASSESSMENT/PLAN: 1. Class 3 obesity with body mass index (BMI) of 45.0 to 49.9 in adult, unspecified obesity type, unspecified whether serious comorbidity present (HCC) - ICD9: 278.00, V85.42, ICD10: E66.9, Z68.42 (primary diagnosis) Start Adipex 37.5 mg capsules once daily Continue to exercise and watch diet 2. custodial (current) use of anticoagulants - ICD9: V58.61, ICD10: Z79.01 - PROTHROMBIN TIME/PT Follow up in 1 month. Patrick Lopez MD The documentation for this note was completed by Argelia Brar Ma acting as scribe for Patrick Lopez MD. October 16, 2017 8:07 AM. CNOV Observed: 10/16/2017 Status: COMPLETED Source: [place] 8:00 AM [facility] REPOSITORY Office Visit (FAMPWS) CARMELO BEST ([id number]) 1970 F Date Time Provider Department 10/16/17 8:00 AM [facility]OPE[facility] During your visit today, we recorded the following information about you: Pulse Respiration Blood pressure Weight 74/minute 18/minute 124/70 141.5 kg Height 1.727 m Patrick Lopez MD 10/16/2017 10:39 AM Signed Chief Complaint Patient presents with: Medication Follow-up HPI Carmelo Cooley Jayy is a 47 year old female who presents here today for weight. Obesity: has been trying to exercise with walking and doing her home exercise machine 4 days a week. Has been watching diet, watching sugar intake. Does drink pop, trying to limit the amount of that per day. Pt would like to start a medication to help her start to lose weight. Has never used any weight loss medications before. Had a few friends that have used Adipex and they had good results with the medication. Pt states she feels she has hit a plateau with the weight. Eating more salads, cucumbers, smoothies, bananas. Past medical history, appointments, medications, allergies reviewed. Previous Medical History PAST MEDICAL HISTORY Diagnosis Date - Hypertension - KERVIN (iron deficiency anemia) 03/24/2014 - Left leg DVT (HCC) 02/27/2011 x1 (2010), s/p left foot surgery; x2 (2011) - Pneumonia - Positive occult stool blood test - Snoring Previous Surgical History PAST SURGICAL HISTORY Procedure Laterality Date - COLONOSCOP W/ OR W/O BRSH SPEC 08/03/2014 Colonoscopy - EGD W/O OR W/BRUSH/WASH 08/03/2014 EGD - HYSTERECTOMY HX 09/2015 - HYSTEROSCOPY BX W/WO DANDC 04/06/15 - INSERT INTRAUTERINE DEVICE 04/06/15 Mirena Insertion - LIGATE FALLOPIAN TUBE 2006 - PAST SURGICAL HISTORY OF Heel spur-left - REMOVAL GALLBLADDER 2000 laparoscopic Family History FAMILY HISTORY Problem Relation Age of Onset - Hypertension Mother - Cancer Father lung bone bladder - Ischemic Heart Disease Maternal Grandmother Patient Allergies ALLERGIES No Known Allergies Current Medications Current Outpatient Prescriptions on File Prior to Visit: warfarin (COUMADIN) 5 mg tablet 10 mg Mon and 7.5 mg all other days or as directed warfarin (COUMADIN) 5 mg tablet 10 mg Mon and 7.5 mg all other days or as directed VITAMIN D 50,000 unit capsule TAKE ONE CAPSULE BY MOUTH EVERY SUNDAY AND SUNDAY buPROPion XL (WELLBUTRIN XL) 300 mg 24 hr tablet Take 1 tablet by mouth once daily. losartan (COZAAR) 50 mg tablet TAKE ONE TABLET BY MOUTH ONCE DAILY hydroCHLOROthiazide (HYDRODIURIL, ESIDRIX) 25 mg tablet TAKE ONE TABLET BY MOUTH ONCE DAILY potassium chloride ER (KLOR-CON M20) 20 mEq tablet Take 1 tablet by mouth twice daily. COMPOUNDED PRESCRIPTION AutoPAP 5-15 cmH2O with humidification. Assoc dx: GILLIAN G47.33 No current facility-administered medications on file prior to visit. Social History Social History Marital status: Single Spouse name: Years of education: Number of children: 3 Social History Main Topics Smoking status: Never Smoker Smokeless tobacco: Never Used Alcohol use: Yes Comment: very occasional Drug use: No Sexual activity: Yes Partners with: Male control/protection: Tubal Ligation Other Topics Concern Service No Blood Transfusions No Caffeine Concern No Occupational Exposure No Hobby Hazards No Sleep Concern No Stress Concern No Weight Concern Yes Special Diet No Back Care No Exercise No Comment:not regularly Bike Helmet Yes Seat Belt Yes Self-Exams No EXAM: BP 124/70 Pulse 74 Resp 18 Ht 172.7 cm (5' 8) Wt (!) 141.5 kg (312 lb) LMP 09/03/2015 (Approximate) BMI 47.44 kg/m? General Appearance: Well appearing, alert, in no acute distress, well-hydrated, well nourished., Obese. Lungs: Lungs clear to auscultation. No wheezing, rhonchi, rales. Heart: RRR without murmur, gallop, or rubs. No ectopy. Health Maintenance List DTAP,TDAP,TD(1 - Tdap) due on 01/11/2008 MAMMOGRAM due on 09/10/2018 DIABETES SCREEN due on 09/18/2020 LIPID SCREEN due on 09/18/2022 COLORECTAL CANCER SCREENING,SEE MODIFIER due on 08/13/2024 INFLUENZA Completed Data reviewed Appointment on 10/05/2017 Component Date Value - PT Sec 10/05/2017 19.8* - PT INR 10/05/2017 2.0* Anticoagulation Visit on 09/28/2017 Component Date Value - INR (POCT) 09/28/2017 3.3* - Internal Quality Check 09/28/2017 Acceptable Appointment on 09/18/2017 Component Date Value - PT Sec 09/18/2017 22.5* - PT INR 09/18/2017 2.3* Appointment on 09/18/2017 Component Date Value - Glucose 09/18/2017 73* - BUN 09/18/2017 13 - Creatinine 09/18/2017 0.98* - Sodium 09/18/2017 139 - Potassium 09/18/2017 3.4* - Chloride 09/18/2017 98 - CO2 09/18/2017 26 - Anion Gap 09/18/2017 15 - Calcium 09/18/2017 9.6 - eGFR- 09/18/2017 >60 - eGFR-All Other Races 09/18/2017 >60 - Hemoglobin A1C 09/18/2017 5.7* - Estimated Average Glucose 09/18/2017 117 - Cholesterol, Total 09/18/2017 153 - Triglyceride 09/18/2017 185* - HDL Cholesterol 09/18/2017 48 - LDL Cholesterol 09/18/2017 68 - Non HDL Cholesterol 09/18/2017 105 - Fasting Time 09/18/2017 5 - VLDL Cholesterol 09/18/2017 37* - TC:HDL Ratio 09/18/2017 3.19 - LDL:HDL Ratio 09/18/2017 1.42 Anticoagulation Visit on 09/11/2017 Component Date Value - INR (POCT) 09/11/2017 3.2* - Internal Quality Check 09/11/2017 Acceptable ASSESSMENT/PLAN: 1. Class 3 obesity with body mass index (BMI) of 45.0 to 49.9 in adult, unspecified obesity type, unspecified whether serious comorbidity present (HCC) - ICD9: 278.00, V85.42, ICD10: E66.9, Z68.42 (primary diagnosis) Start Adipex 37.5 mg capsules once daily Continue to exercise and watch diet 2. custodial (current) use of anticoagulants - ICD9: V58.61, ICD10: Z79.01 - PROTHROMBIN TIME/PT Follow up in 1 month. Patrick Lopez MD The documentation for this note was completed by Argelia Brar Ma acting as scribe for Patrick Lopez MD. October 16, 2017 8:07 AM. Referring Provider: SERENITY MORRIS (SAWMILLING OPERATOR) [[id number]] Allergies As of Date: 10/16/2017 (No Known Allergies) Date Reviewed: 10/16/2017 Reviewed by: Argelia Brar Ma - Fully Assessed Reason for Visit: Medication Follow-up [270] Primary Visit Diagnosis:Class 3 obesity with body mass index (BMI) of 45.0 to 49.9 in adult, unspecified obesity type, unspecified whether serious comorbidity present (HCC) [E66.9, Z68.42] Other Visit Diagnosis:intermediate project manager (current) use of anticoagulants [Z79.01] Order(s):PROTHROMBIN TIME/PT [SQPT] Order #: [id number] STANDING [START ON 10/19/2017] Phentermine HCl (ADIPEX-P) 37.5 mg capsuleTake 1 capsule by mouth once daily for 30 days.Disp: 30 capsuleRfl: 0 Prescriptions as of 10/16/2017 Sig: WARFARIN 5 MG TABLET 10 mg Mon and 7.5 mg all othe* WARFARIN 5 MG TABLET 10 mg Mon and 7.5 mg all othe* VITAMIN D2 50,000 UNIT CAPSULE TAKE ONE CAPSULE BY MOUTH JOAN* BUPROPION XL 300 MG 24 HR TAB Take 1 tablet by mouth once d* LOSARTAN 50 MG TABLET TAKE ONE TABLET BY MOUTH ONCE* HYDROCHLOROTHIAZIDE 25 MG TAB* TAKE ONE TABLET BY MOUTH ONCE* POTASSIUM CHLORIDE ER 20 MEQ * Take 1 tablet by mouth twice * COMPOUNDED PRESCRIPTION AutoPAP 5-15 cmH2O with humid* PHENTERMINE 37.5 MG CAPSULE Take 1 capsule by mouth once * Problem List As Of Date 10/16/2017 Noted Resolved ADJUSTMENT DISORDER WITH DEPRESSED MOOD [F43.21]INVALID FOR* Essential Hypertension, Benign [I10] INVALID FOR* Obesity [E66.9] INVALID FOR* Calcaneal spur [M77.30] INVALID FOR* Left leg DVT [I82.402] INVALID FOR* intermediate project manager (current) use of anticoagulants [Z79.*INVALID FOR* KERVIN (iron deficiency anemia) [D50.9] INVALID FOR*09/28/2017 Vitamin D deficiency [E55.9] INVALID FOR* Positive occult stool blood test [R19.5] Benign pigmented mole [D22.9] INVALID FOR* More... Hematuria [R31.9] INVALID FOR* Menorrhagia with irregular cycle [N92.1] INVALID FOR*07/12/2016 History of DVT (deep vein thrombosis) [Z86.718] INVALID FOR* Deep vein thrombosis (DVT) of left lower extrem*INVALID FOR* Steroid-induced hyperglycemia [R73.9, T38.0X5A] INVALID FOR* Obstructive sleep apnea [G47.33] INVALID FOR* Prescriptions ordered this encounter Disp Refills Start End PHENTERMINE 37.5 MG CAPSULE 30 c* 0 10/19/2017 11/18/2017 Class: Print RX Cmt: BMI 47 Route: ORAL Sig: Take 1 capsule by mouth once daily for 30 days. Disposition: Return in about 1 month (around 11/16/2017). Follow-up and Disposition History Recorded Encounter Status:Closed by PATRICK LOPEZ MD on 10/16/17 PROTIME Collected: 10/16/2017 Status: F Source: [place] 7:52 AM [facility] REPOSITORY TYPE CODE TESTS RESULT OUT OF RANGE REFERENCE UNITS LAB PSEC 9.7-13.0 sec High PT Sec 18.8 LAB INR 0.9-1.3 High PT INR 1.9 Result Comment: Vitamin K Antagonist (VKA) Therapeutic Range: INR 2 to 3 (Target INR of 2.5) Note: For patients treated with VKA drugs, such as warfarin, the [employer] 2012 Guideline recommends a therapeutic INR range of 2 to 3 (target INR of 2.5). This recommendation includes high-risk patients with antiphospholipid syndrome with previous arterial or venous thromboembolism, current-generation mechanical or bioprosthetic aortic heart valve replacement. Note: Patients with mechanical aortic valve replacement and additional risk factors for thromboembolic events (atrial fibrillation, previous thromboembolism, LV dysfunction, hypercoagulable conditions) or an older generation mechanical AVR (i.e., ball in-Cage) or any mechanical MVR should have a INR therapeutic range of 2.5 to 3.5 (target INR of 3). Napoleon NUNO, et ange. Chest 2012, 141:7S-47S Rusty VILLALTA et ange. [facility] 2017, 70: [phone] Performed By: #### PT #### [facility] [employer] [address] [place], [place] [address] PROTIME Collected: 10/05/2017 Status: F Source: [place] 4:55 PM [facility] REPOSITORY TYPE CODE TESTS RESULT OUT OF RANGE REFERENCE UNITS LAB PSEC 9.7-13.0 sec High PT Sec 19.8 LAB INR 0.9-1.3 High PT INR 2.0 Result Comment: Vitamin K Antagonist (VKA) Therapeutic Range: INR 2 to 3 (Target INR of 2.5) Note: For patients treated with VKA drugs, such as warfarin, the [place] 2012 Guideline recommends a therapeutic INR range of 2 to 3 (target INR of 2.5). This recommendation includes high-risk patients with antiphospholipid syndrome with previous arterial or venous thromboembolism, current-generation mechanical or bioprosthetic aortic heart valve replacement. Note: Patients with mechanical aortic valve replacement and additional risk factors for thromboembolic events (atrial fibrillation, previous thromboembolism, LV dysfunction, hypercoagulable conditions) or an older generation mechanical AVR (i.e., ball in-Cage) or any mechanical MVR should have a INR therapeutic range of 2.5 to 3.5 (target INR of 3). Napoleon NUNO, et ange. Chest 2012, 141:7S-47S Rusty VILLALTA et al. [facility] 2017, 70: [phone] Performed By: #### PT #### [facility] [employer] [address] [place], [place] [address] PROGRESS Observed: 09/28/2017 Status: COMPLETED Source: [place] 4:34 PM [facility] REPOSITORY HNO ID: [id number] Author: Serenity Contreras LPN Service: (none) Author Type: (none) Type: Progress Notes Filed: 09/28/2017 4:35 PM Note Text: call to patient, instructions given with understanding. tracker updated. PROGRESS Observed: 09/28/2017 Status: COMPLETED Source: [place] 3:38 PM [facility] REPOSITORY HNO ID: [id number] Author: Patrick Lopez Service: (none) Author Type: Physician Type: Progress Notes Filed: 09/28/2017 4:34 PM Note Text: Go to 10 mg Mon, 7.5 mg all other days Recheck in 1 weeks as planned Patrick Lopez MD PROGRESS Observed: 09/28/2017 Status: COMPLETED Source: [place] 2:33 PM [facility] REPOSITORY HNO ID: [id number] Author: Cece Melgoza RN Service: (none) Author Type: (none) Type: Progress Notes Filed: 09/28/2017 2:35 PM Note Text: patient had inr completed at [facility] patients inr is 3.3 (patients inr range is 2.0-3.0) patient is currently taking 10mg Mon,Fri and 7.5mg all other days patients last dose change was on 09/11/17 due to a high level of 3.2 (dose at that time was 10mg Mon,Wed,Fri and 7.5mg all other days) patient has had no changes in medication excepts for coumadin and no missed doses and no change in diet Advised patient that they would be contacted regarding medication dose and when to follow up after information is reviewed by provider. After provider review please contact the patient with information and schedule follow up appointment with coumadin clinic. Ok to leave a detailed message if no answer FYI -patient has been scheduled for a 1 week follow up inr on 10/05/17 PROGRESS Observed: 09/28/2017 Status: COMPLETED Source: [place] 1:54 PM [facility] REPOSITORY HNO ID: [id number] Author: Serenity Morris (Bulb Planter) Service: (none) Author Type: Nurse Practitioner Type: Progress Notes Filed: 09/28/2017 6:36 PM Note Text: Chief Complaint Patient presents with: Recheck: medication review HPI Carmelo Best is a 47 year old female who presents here today for Above Complaints. HTN, BS, Mood review and review labs. Mood: Irritable, tearfulness, decreased motivation. Notes a slip in her mood and would like having her Wellbutrin increased. Lots of situational stress with son. HTN: Ms. Best indicates that she is feeling well and denies any symptoms referable to elevated blood pressure. Specifically denies headache, chest pain, palpitations, dyspnea and peripheral edema. Patient denies any side effects of her medication(s) and is compliant with their regimen. She does not check BP's generally. Carmelo denies regular aerobic exercise, walking, just joined [employer]. She watches her diet for sodium, low fat and low cholesterol most of the time. Last 3 Encounter BP Readings: Date: BP: 09/28/2017 110/70 09/10/2017 134/80 03/14/2017 120/82 Last 3 Encounter Wt Readings: Date: Wt: 09/28/2017 144.2 kg (318 lb) 09/10/2017 142.4 kg (314 lb) 03/14/2017 141.1 kg (311 lb) Blood Sugar: she has just recently resumed regular pop. Understands she can't have it in her home. Labs reviewed. Component Latest Ref Rng AND Units 09/18/2017 Glucose 74 - 99 mg/dL 73 (L) BUN 7 - 21 mg/dL 13 Creatinine 0.58 - 0.96 mg/dL 0.98 (H) Sodium 136 - 144 mmol/L 139 Potassium 3.7 - 5.1 mmol/L 3.4 (L) Chloride 97 - 105 mmol/L 98 CO2 22 - 30 mmol/L 26 Anion Gap 9 - 18 mmol/L 15 Calcium 8.5 - 10.2 mg/dL 9.6 eGFR- >60 eGFR-All Other Races . >60 Cholesterol, Total <200 mg/dL 153 Triglyceride <150 mg/dL 185 (H) HDL Cholesterol >39 mg/dL 48 LDL Cholesterol <100 mg/dL 68 Non HDL Cholesterol <130 mg/dL 105 Fasting Time hrs 5 VLDL Cholesterol <30 mg/dL 37 (H) TC:HDL Ratio <5.10 3.19 LDL:HDL Ratio <2.54 1.42 Hemoglobin A1C 4.3 - 5.6 % 5.7 (H) Estimated Average Glucose mg/dL 117 PT Sec 9.7 - 13.0 sec 22.5 (H) PT INR 0.9 - 1.3 2.3 (H) Past medical history, appointments, medications, allergies reviewed. Previous Medical History PAST MEDICAL HISTORY Diagnosis Date - Hypertension - Left leg DVT (HCC) 02/27/2011 x1 (2010), s/p left foot surgery; x2 (2011) - Pneumonia - Positive occult stool blood test - Snoring Previous Surgical History PAST SURGICAL HISTORY Procedure Laterality Date - COLONOSCOP W/ OR W/O BRSH SPEC 08/03/2014 Colonoscopy - EGD W/O OR W/BRUSH/WASH 08/03/2014 EGD - HYSTERECTOMY HX 09/2015 - HYSTEROSCOPY BX W/WO DANDC 04/06/15 - INSERT INTRAUTERINE DEVICE 04/06/15 Mirena Insertion - LIGATE FALLOPIAN TUBE 2006 - PAST SURGICAL HISTORY OF Heel spur-left - REMOVAL GALLBLADDER 2000 laparoscopic Family History FAMILY HISTORY Problem Relation Age of Onset - Hypertension Mother - Cancer Father lung bone bladder - Ischemic Heart Disease Maternal Grandmother Patient Allergies ALLERGIES No Known Allergies Current Medications Current Outpatient Prescriptions on File Prior to Visit: warfarin (COUMADIN) 5 mg tablet 10 mg Mon/Fri and 7.5 mg all other days or as directed warfarin (COUMADIN) 5 mg tablet 10 mg Mon/Fri and 7.5 mg all other days or as directed losartan (COZAAR) 50 mg tablet TAKE ONE TABLET BY MOUTH ONCE DAILY hydroCHLOROthiazide (HYDRODIURIL, ESIDRIX) 25 mg tablet TAKE ONE TABLET BY MOUTH ONCE DAILY buPROPion XL (WELLBUTRIN XL) 150 mg 24 hr tablet Take 1 tablet by mouth once daily. VITAMIN D 50,000 unit capsule TAKE ONE CAPSULE BY MOUTH EVERY SUNDAY AND SUNDAY potassium chloride ER (KLOR-CON M20) 20 mEq tablet Take 1 tablet by mouth twice daily. COMPOUNDED PRESCRIPTION AutoPAP 5-15 cmH2O with humidification. Assoc dx: GILLIAN G47.33 Ferrous Gluconate (FERGON) 324 mg (38 mg iron) tablet Take 1 tablet by mouth once daily. (Patient not taking: Reported on 09/28/2017 ) No current facility-administered medications on file prior to visit. Social History Social History Marital status: Single Spouse name: Years of education: Number of children: 3 Social History Main Topics Smoking status: Never Smoker Smokeless tobacco: Never Used Alcohol use: Yes Comment: very occasional Drug use: No Sexual activity: Yes Partners with: Male control/protection: Tubal Ligation Other Topics Concern Service No Blood Transfusions No Caffeine Concern No Occupational Exposure No Hobby Hazards No Sleep Concern No Stress Concern No Weight Concern Yes Special Diet No Back Care No Exercise No Comment:not regularly Bike Helmet Yes Seat Belt Yes Self-Exams No Review of Symptoms REVIEW OF SYSTEMS GENERAL: No weight loss, malaise or fevers HEENT: Negative for frequent or significant headaches, No changes in hearing or vision, no nose bleeds or other nasal problems NECK: Negative for lumps, goiter, pain and significant neck swelling RESPIRATORY: Negative for cough, hemoptysis, wheezing, COPD, dyspnea or shortness of breath CARDIOVASCULAR: Negative for chest pain, leg swelling, hypertension, CHF or palpitations GI: No nausea, vomiting, or diarrhea and No heartburn or reflux symptoms PSYCH: Admits to depression related to situational stress. EXAM: BP 110/70 (BP Site: Right Leg, BP Position: Sitting, BP Cuff Size: Large Adult) Pulse 64 Temp 37.4 ?C (99.3 ?F) (Tympanic) Resp 18 Wt (!) 144.2 kg (318 lb) LMP 09/03/2015 (Approximate) BMI 47.37 kg/m? General Appearance: Well appearing, alert, in no acute distress, well-hydrated, well nourished. Morbidly obese. Skin: Skin color, texture, turgor normal, no suspicious rashes or lesions. Eyes: Anicteric sclera. Pupils are equally round and reactive to light. Extraocular movements are intact. . Ears: External ears normal, canals clear. Oropharynx: Lips, mucosa, and tongue normal, teeth and gums normal, oropharynx normal. Neck: Supple, no adenopathy; thyroid symmetric, normal size, no bruits. Lungs: Lungs clear to auscultation. No wheezing, rhonchi, rales. Heart: RRR without murmur, gallop, or rubs. No ectopy. Abdomen: Normal abdominal exam, Abdomen soft, non-tender. Bowel sounds normal. No masses, organomegaly, exam limited due to body habitus. Extremities: No deformities, edema, skin discoloration, clubbing or cyanosis. Good capillary refill. , Edema: trace. Health Maintenance List DTAP,TDAP,TD(1 - Tdap) due on 1989 MAMMOGRAM due on 09/10/2018 DIABETES SCREEN due on 09/18/2020 LIPID SCREEN due on 09/18/2022 COLORECTAL CANCER SCREENING,SEE MODIFIER due on 08/13/2024 INFLUENZA Completed ASSESSMENT/PLAN: 1. Essential hypertension, benign - ICD9: 401.1, ICD10: I10 (primary diagnosis) - good control - Continue current medication(s) - Encouraged dietary sodium restriction/DASH diet - Recommended regular aerobic exercise. - Recommend home blood pressure monitoring, to bring results in on next visit - Discussed need and benefit for weight loss. - Goal of BP <130/80 2. Adjustment disorder with depressed mood - ICD9: 309.0, ICD10: F43.21 - Will increase Wellbutrin to 300 mg XL - BUPROPION XL 300 MG 24 HR TAB 3. custodial (current) use of anticoagulants - ICD9: V58.61, ICD10: Z79.01 - Therapeutic INR 4. Obesity, Class III, BMI 40-49.9 (morbid obesity) (HCC) - ICD9: 278.01, ICD10: E66.01 - she is inquiring about Adipex to jump start weight loss. She is referred back to Dr. Lopez. - Eliminate the pop -Congratulated on joining the gym. Serenity Morris, MSN HYDRAULIC BOOM OPERATOR.HAT MARKER CNOV Observed: 09/28/2017 Status: COMPLETED Source: [place] 1:20 PM [facility] REPOSITORY Office Visit (FAMPWS) CARMELO BEST ([id number]) 1970 F Date Time Provider Department 09/28/17 1:20 PM SERENITY MORRIS (RACHELLE) FAMPWS During your visit today, we recorded the following information about you: Temperature Pulse Respiration Blood pressure 99.3 degrees 64/minute 18/minute 110/70 Weight 144.2 kg Serenity Morris (Bulb Planter) 09/28/2017 6:36 PM Signed Chief Complaint Patient presents with: Recheck: medication review HPI Carmelo Cooley Jayy is a 47 year old female who presents here today for Above Complaints. HTN, BS, Mood review and review labs. Mood: Irritable, tearfulness, decreased motivation. Notes a slip in her mood and would like having her Wellbutrin increased. Lots of situational stress with son. HTN: Ms. Best indicates that she is feeling well and denies any symptoms referable to elevated blood pressure. Specifically denies headache, chest pain, palpitations, dyspnea and peripheral edema. Patient denies any side effects of her medication(s) and is compliant with their regimen. She does not check BP's generally. Carmelo denies regular aerobic exercise, walking, just joined [employer]. She watches her diet for sodium, low fat and low cholesterol most of the time. Last 3 Encounter BP Readings: Date: BP: 09/28/2017 110/70 09/10/2017 134/80 03/14/2017 120/82 Last 3 Encounter Wt Readings: Date: Wt: 09/28/2017 144.2 kg (318 lb) 09/10/2017 142.4 kg (314 lb) 03/14/2017 141.1 kg (311 lb) Blood Sugar: she has just recently resumed regular pop. Understands she can't have it in her home. Labs reviewed. Component Latest Ref Rng AND Units 09/18/2017 Glucose 74 - 99 mg/dL 73 (L) BUN 7 - 21 mg/dL 13 Creatinine 0.58 - 0.96 mg/dL 0.98 (H) Sodium 136 - 144 mmol/L 139 Potassium 3.7 - 5.1 mmol/L 3.4 (L) Chloride 97 - 105 mmol/L 98 CO2 22 - 30 mmol/L 26 Anion Gap 9 - 18 mmol/L 15 Calcium 8.5 - 10.2 mg/dL 9.6 eGFR- >60 eGFR-All Other Races . >60 Cholesterol, Total <200 mg/dL 153 Triglyceride <150 mg/dL 185 (H) HDL Cholesterol >39 mg/dL 48 LDL Cholesterol <100 mg/dL 68 Non HDL Cholesterol <130 mg/dL 105 Fasting Time hrs 5 VLDL Cholesterol <30 mg/dL 37 (H) TC:HDL Ratio <5.10 3.19 LDL:HDL Ratio <2.54 1.42 Hemoglobin A1C 4.3 - 5.6 % 5.7 (H) Estimated Average Glucose mg/dL 117 PT Sec 9.7 - 13.0 sec 22.5 (H) PT INR 0.9 - 1.3 2.3 (H) Past medical history, appointments, medications, allergies reviewed. Previous Medical History PAST MEDICAL HISTORY Diagnosis Date - Hypertension - Left leg DVT (HCC) 02/27/2011 x1 (2010), s/p left foot surgery; x2 (2011) - Pneumonia - Positive occult stool blood test - Snoring Previous Surgical History PAST SURGICAL HISTORY Procedure Laterality Date - COLONOSCOP W/ OR W/O BRSH SPEC 08/03/2014 Colonoscopy - EGD W/O OR W/BRUSH/WASH 08/03/2014 EGD - HYSTERECTOMY HX 09/2015 - HYSTEROSCOPY BX W/WO DANDC 04/06/15 - INSERT INTRAUTERINE DEVICE 04/06/15 Mirena Insertion - LIGATE FALLOPIAN TUBE 2006 - PAST SURGICAL HISTORY OF Heel spur-left - REMOVAL GALLBLADDER 2000 laparoscopic Family History FAMILY HISTORY Problem Relation Age of Onset - Hypertension Mother - Cancer Father lung bone bladder - Ischemic Heart Disease Maternal Grandmother Patient Allergies ALLERGIES No Known Allergies Current Medications Current Outpatient Prescriptions on File Prior to Visit: warfarin (COUMADIN) 5 mg tablet 10 mg Mon/Fri and 7.5 mg all other days or as directed warfarin (COUMADIN) 5 mg tablet 10 mg Mon/Fri and 7.5 mg all other days or as directed losartan (COZAAR) 50 mg tablet TAKE ONE TABLET BY MOUTH ONCE DAILY hydroCHLOROthiazide (HYDRODIURIL, ESIDRIX) 25 mg tablet TAKE ONE TABLET BY MOUTH ONCE DAILY buPROPion XL (WELLBUTRIN XL) 150 mg 24 hr tablet Take 1 tablet by mouth once daily. VITAMIN D 50,000 unit capsule TAKE ONE CAPSULE BY MOUTH EVERY SUNDAY AND SUNDAY potassium chloride ER (KLOR-CON M20) 20 mEq tablet Take 1 tablet by mouth twice daily. COMPOUNDED PRESCRIPTION AutoPAP 5-15 cmH2O with humidification. Assoc dx: GILLIAN G47.33 Ferrous Gluconate (FERGON) 324 mg (38 mg iron) tablet Take 1 tablet by mouth once daily. (Patient not taking: Reported on 09/28/2017 ) No current facility-administered medications on file prior to visit. Social History Social History Marital status: Single Spouse name: Years of education: Number of children: 3 Social History Main Topics Smoking status: Never Smoker Smokeless tobacco: Never Used Alcohol use: Yes Comment: very occasional Drug use: No Sexual activity: Yes Partners with: Male control/protection: Tubal Ligation Other Topics Concern Service No Blood Transfusions No Caffeine Concern No Occupational Exposure No Hobby Hazards No Sleep Concern No Stress Concern No Weight Concern Yes Special Diet No Back Care No Exercise No Comment:not regularly Bike Helmet Yes Seat Belt Yes Self-Exams No Review of Symptoms REVIEW OF SYSTEMS GENERAL: No weight loss, malaise or fevers HEENT: Negative for frequent or significant headaches, No changes in hearing or vision, no nose bleeds or other nasal problems NECK: Negative for lumps, goiter, pain and significant neck swelling RESPIRATORY: Negative for cough, hemoptysis, wheezing, COPD, dyspnea or shortness of breath CARDIOVASCULAR: Negative for chest pain, leg swelling, hypertension, CHF or palpitations GI: No nausea, vomiting, or diarrhea and No heartburn or reflux symptoms PSYCH: Admits to depression related to situational stress. EXAM: BP 110/70 (BP Site: Right Leg, BP Position: Sitting, BP Cuff Size: Large Adult) Pulse 64 Temp 37.4 ?C (99.3 ?F) (Tympanic) Resp 18 Wt (!) 144.2 kg (318 lb) LMP 09/03/2015 (Approximate) BMI 47.37 kg/m? General Appearance: Well appearing, alert, in no acute distress, well-hydrated, well nourished. Morbidly obese. Skin: Skin color, texture, turgor normal, no suspicious rashes or lesions. Eyes: Anicteric sclera. Pupils are equally round and reactive to light. Extraocular movements are intact. . Ears: External ears normal, canals clear. Oropharynx: Lips, mucosa, and tongue normal, teeth and gums normal, oropharynx normal. Neck: Supple, no adenopathy; thyroid symmetric, normal size, no bruits. Lungs: Lungs clear to auscultation. No wheezing, rhonchi, rales. Heart: RRR without murmur, gallop, or rubs. No ectopy. Abdomen: Normal abdominal exam, Abdomen soft, non-tender. Bowel sounds normal. No masses, organomegaly, exam limited due to body habitus. Extremities: No deformities, edema, skin discoloration, clubbing or cyanosis. Good capillary refill. , Edema: trace. Health Maintenance List DTAP,TDAP,TD(1 - Tdap) due on 1989 MAMMOGRAM due on 09/10/2018 DIABETES SCREEN due on 09/18/2020 LIPID SCREEN due on 09/18/2022 COLORECTAL CANCER SCREENING,SEE MODIFIER due on 08/13/2024 INFLUENZA Completed ASSESSMENT/PLAN: 1. Essential hypertension, benign - ICD9: 401.1, ICD10: I10 (primary diagnosis) - good control - Continue current medication(s) - Encouraged dietary sodium restriction/DASH diet - Recommended regular aerobic exercise. - Recommend home blood pressure monitoring, to bring results in on next visit - Discussed need and benefit for weight loss. - Goal of BP <130/80 2. Adjustment disorder with depressed mood - ICD9: 309.0, ICD10: F43.21 - Will increase Wellbutrin to 300 mg XL - BUPROPION XL 300 MG 24 HR TAB 3. intermediate project manager (current) use of anticoagulants - ICD9: V58.61, ICD10: Z79.01 - Therapeutic INR 4. Obesity, Class III, BMI 40-49.9 (morbid obesity) (HCC) - ICD9: 278.01, ICD10: E66.01 - she is inquiring about Adipex to jump start weight loss. She is referred back to Dr. Lopez. - Eliminate the pop -Congratulated on joining the gym. Serenity Morris, MSN HYDRAULIC BOOM OPERATOR.HAT MARKER Referring Provider: SELF [[id number]] Allergies As of Date: 09/28/2017 (No Known Allergies) Date Reviewed: 09/28/2017 Reviewed by: Ceec Melgoza RN - Fully Assessed Reason for Visit: Recheck [92] Cmt: medication review Primary Visit Diagnosis:Essential hypertension, benign [I10] Other Visit Diagnoses:Adjustment disorder with depressed mood [F43.21] intermediate project manager (current) use of anticoagulants [Z79.01] Obesity, Class III, BMI 40-49.9 (morbid obesity) (HCC) [E66.01] Order(s):buPROPion XL (WELLBUTRIN XL) 300 mg 24 hr tabletTake 1 tablet by mouth once daily.Disp: 30 tabletRfl: 5 Prescriptions as of 09/28/2017 Sig: WARFARIN 5 MG TABLET 10 mg Mon/Fri and 7.5 mg all * WARFARIN 5 MG TABLET 10 mg Mon/Fri and 7.5 mg all * LOSARTAN 50 MG TABLET TAKE ONE TABLET BY MOUTH ONCE* HYDROCHLOROTHIAZIDE 25 MG TAB* TAKE ONE TABLET BY MOUTH ONCE* VITAMIN D2 50,000 UNIT CAPSULE TAKE ONE CAPSULE BY MOUTH JOAN* POTASSIUM CHLORIDE ER 20 MEQ * Take 1 tablet by mouth twice * COMPOUNDED PRESCRIPTION AutoPAP 5-15 cmH2O with humid* BUPROPION XL 300 MG 24 HR TAB Take 1 tablet by mouth once d* Problem List As Of Date 09/28/2017 Noted Resolved ADJUSTMENT DISORDER WITH DEPRESSED MOOD [F43.21]INVALID FOR* Essential Hypertension, Benign [I10] INVALID FOR* Obesity [E66.9] INVALID FOR* Calcaneal spur [M77.30] INVALID FOR* Left leg DVT [I82.402] INVALID FOR* custodial (current) use of anticoagulants [Z79.*INVALID FOR* KERVIN (iron deficiency anemia) [D50.9] INVALID FOR*09/28/2017 Vitamin D deficiency [E55.9] INVALID FOR* Positive occult stool blood test [R19.5] Benign pigmented mole [D22.9] INVALID FOR* More... Hematuria [R31.9] INVALID FOR* Menorrhagia with irregular cycle [N92.1] INVALID FOR*07/12/2016 History of DVT (deep vein thrombosis) [Z86.718] INVALID FOR* Deep vein thrombosis (DVT) of left lower extrem*INVALID FOR* Steroid-induced hyperglycemia [R73.9, T38.0X5A] INVALID FOR* Obstructive sleep apnea [G47.33] INVALID FOR* Prescriptions ordered this encounter Disp Refills Start End BUPROPION XL 300 MG 24 HR TAB 30 t* 5 09/28/2017 Route: ORAL Sig: Take 1 tablet by mouth once daily. Medications Discontinued During This Encounter Ferrous Gluconate (FERGON) 324 mg (3* 30 t* 12 04/11/2016 09/28/2017 Route: ORAL Sig: Take 1 tablet by mouth once daily. Patient not taking: Reported on 09/28/2017 Disc: Course of therapy completed buPROPion XL (WELLBUTRIN XL) 150 mg * 90 t* 3 04/30/2017 09/28/2017 Route: ORAL Sig: Take 1 tablet by mouth once daily. Disc: Changing Therapy/Dosage Form Follow-up and Disposition History Recorded Encounter Status:Closed by SREENITY MORRIS CNP on 09/28/17 BASIC METABOLIC PANL Collected: 09/18/2017 Status: F Source: [place] 4:27 PM [facility] REPOSITORY TYPE CODE TESTS RESULT OUT OF REFERENCE UNITS RANGE LAB GLU 74-99 mg/dL Low Glucose 73 Result Comment: The [place] [employer] (ADA) provides guidance for cutoff values for fasting glucose and random glucose. The ADA defines fasting as no caloric intake for at least 8 hours. Fas ting plasma glucose results between 100 to 125 mg/dL indicate increased risk for diabetes (prediabetes). Fasting plasma glucose results greater than or equal to 126 mg/dL meet the criteria for diagnosis of diabetes. In the absence of unequivocal hyperglycemia, results should be confirmed by repeat testing. In a patient with classic symptoms of hyperglycemia or hyperglycemic crisis, random plasma glucose results greater than or equal to 200 mg/dL meet the criteria for diagnosis of diabetes. Reference: Standards of Medical Care in Diabetes 2016, [place] [employer]. Diabetes Care. 2016.39(Suppl 1). LAB BUN 7-21 mg/dL BUN 13 LAB CRET 0.58-0.96 mg/dL Creatinine High 0.98 LAB NA 136-144 mmol/L Sodium 139 LAB K 3.7-5.1 mmol/L Low Potassium 3.4 LAB CL 97-105 mmol/L Chloride 98 LAB CO2 22-30 mmol/L CO2 26 LAB AGAP 9-18 mmol/L Anion Gap 15 LAB CA 8.5-10.2 mg/dL Calcium, Total 9.6 LAB GFRAA eGFR- Amer. >60 LAB GFRNAA . eGFR-All Other Races >60 Result Comment: eGFR (Estimated GFR) Units of measure: mL/min/1.73 meters squared eGFR is derived from the reexpressed MDRD Study equation using the following parameters: serum creatinine, age, gender and race. The creatinine assay has been calibrated to be traceable to IDMS. An eGFR <60 mL/min/1.73m2 for >3 months is consistent with chronic kidney disease. Refer to KDOQI guidelines for clinical interpretation. In patients with unstable renal function, e.g. those with acute kidney injury, the eGFR may not accurately reflect actual GFR. Performed By: #### BMP, LIPB, HBA1C #### [facility] [address] [place], [place] [address] LIPID PANEL, BASIC Collected: 09/18/2017 Status: F Source: [place] 4:27 PM [facility] REPOSITORY TYPE CODE TESTS RESULT OUT OF REFERENCE UNITS RANGE LAB CHOL <200 mg/dL Cholesterol 153 Result Comment: <200 mg/dL, Desirable 200-239 mg/dL, Borderline high >239 mg/dL, High LAB TRIGLY <150 mg/dL Triglyceride High 185 Result Comment: <150 mg/dL, Normal 150-199 mg/dL, Borderline high 200-499 mg/dL, High >499 mg/dL, Very high LAB HDL >39 mg/dL HDL-Cholesterol 48 Result Comment: 40-59 mg/dL, Acceptable >59 mg/dL, High: Negative risk factor for coronary heart disease <40 mg/dL, Low: Positive risk factor for coronary heart disease LAB LDL <100 mg/dL LDL-Cholesterol 68 Result Comment: <100 mg/dL, Optimal 100-129 mg/dL, Near optimal/above optimal 130-159 mg/dL, Borderline high 160-189 mg/dL, High >189 mg/dL, Very high Secondary prevention optimal LDL Cholesterol levels are recommended to be < 70 mg/dL LAB NONHDL <130 mg/dL Non HDL Cholesterol 105 Result Comment: <130 mg/dL, Optimal 130-159 mg/dL, Near optimal/above optimal 160-189 mg/dL, Borderline high 190-219 mg/dL, High >219 mg/dL, Very high Secondary prevention optimal non HDL Cholesterol levels are recommended to be < 100 mg/dL LAB FT hrs Fasting Time 5 LAB VLDL <30 mg/dL High VLDL Cholesterol 37 LAB TCHDL <5.10 TC:HDL Ratio 3.19 LAB LDLHDL <2.54 LDL:HDL Ratio 1.42 Result Comment: Reference: 1. National Cholesterol Education Program ATP III Guideline At-A-Glance Quick Desk Reference: National Heart, Lung, and Blood Kennan. National Institutes of Health. 2001: NIH Publication No. 01-3305. 2. An International Atherosclerosis Society position paper: global recommendations for the management of dyslipidemia: executive summary, Atherosclerosis. 2014: 232(2):410-413. Performed By: #### BMP, LIPB, HBA1C #### [facility] [address] [place], [place] [address] HEMOGLOBIN A1C Collected: 09/18/2017 Status: F Source: [place] 4:27 PM [facility] REPOSITORY TYPE CODE TESTS RESULT OUT OF REFERENCE UNITS RANGE LAB HGBA1C 4.3-5.6 % High Hemoglobin A1c 5.7 LAB HBA0 mg/dL Est. Average Glucose 117 Result Comment: eAG: (Estimated average glucose) is a calculated value from HgbA1c and is airport representative of the average blood glucose level in the last 2-3 month period. Performed By: #### BMP, LIPB, HBA1C #### [facility] [address] [place], [place] [id number] PROTIME Collected: 09/18/2017 Status: F Source: [place] 4:26 PM [facility] REPOSITORY TYPE CODE TESTS RESULT OUT OF RANGE REFERENCE UNITS LAB PSEC 9.7-13.0 sec High PT Sec 22.5 LAB INR 0.9-1.3 High PT INR 2.3 Result Comment: Vitamin K Antagonist (VKA) Therapeutic Range: INR 2 to 3 (Target INR of 2.5) Note: For patients treated with VKA drugs, such as warfarin, the [employer] [employer] 2012 Guideline recommends a therapeutic INR range of 2 to 3 (target INR of 2.5). This recommendation includes high-risk patients with antiphospholipid syndrome with previous arterial or venous thromboembolism, current-generation mechanical or bioprosthetic aortic heart valve replacement. Note: Patients with mechanical aortic valve replacement and additional risk factors for thromboembolic events (atrial fibrillation, previous thromboembolism, LV dysfunction, hypercoagulable conditions) or an older generation mechanical AVR (i.e., ball in-Cage) or any mechanical MVR should have a INR therapeutic range of 2.5 to 3.5 (target INR of 3). Napoleon GH, et al. Chest 2012, 141:7S-47S Rusty RA, et al. [facility] 2017, 70: 252-289 Performed By: #### PT #### [facility] [address] [place], [place] [address] PROGRESS Observed: 09/11/2017 Status: COMPLETED Source: [place] 5:17 PM [facility] REPOSITORY HNO ID: [id number] Author: Argelia Brar Ma Service: (none) Author Type: (none) Type: Progress Notes Filed: 09/11/2017 5:20 PM Note Text: Detailed message left on pt machine. Tracker and med list updated. Argelia Brar Ma PROGRESS Observed: 09/11/2017 Status: COMPLETED Source: [place] 5:09 PM [facility] REPOSITORY HNO ID: [id number] Author: Patrick Lopez Service: (none) Author Type: Physician Type: Progress Notes Filed: 09/11/2017 5:20 PM Note Text: Go back to 10mg Mon,Fri and 7.5mg all other days Recheck in 1 week as planned Patrick Lopez MD PROGRESS Observed: 09/11/2017 Status: COMPLETED Source: [place] 3:56 PM [facility] REPOSITORY HNO ID: [id number] Author: Cece Melgoza RN Service: (none) Author Type: (none) Type: Progress Notes Filed: 09/11/2017 3:59 PM Note Text: patient had inr completed at [facility] patients inr is 3.2 (patients inr range is 2.0-3.0) patient is currently taking 10mg Mon,Wed,Fri and 7.5mg all other days patients last dose change was on 07/25/17 due to a low level of 1.9 (dose at that tome was 10mg Mon,Fri and 7.5mg all other days) patient has had no changes in medication and no missed doses and no change in diet Advised patient that they would be contacted regarding medication dose and when to follow up after information is reviewed by provider. After provider review please contact the patient with information and schedule follow up appointment with coumadin clinic. Ok to leave detailed message if no answer FYI - patient has been scheduled for a 1 week follow up inr on 09/18/17 CNPTOUTREACH Observed: 09/11/2017 Status: COMPLETED Source: [place] 12:00 AM [facility] REPOSITORY Patient Outreach (FAMPST) CARMELO BEST ([id number]) 1970 F Date Time Provider Department 09/11/17 PATRICK LOPEZ During your visit today, we recorded the following information about you: Allergies As of Date: 09/11/2017 (No Known Allergies) Date Reviewed: 09/11/2017 Reviewed by: Cece Melgoza RN - Fully Assessed Visit Diagnosis:Medication management [Z79.899] Order(s):BASIC METABOLIC PNL [SQBMP] Order #: [id number] FUTURE HGB A1C [EFLCU0Z] Order #: [id number] FUTURE LIPID PANEL BASIC [SQLIPB] Order #: [id number] FUTURE Prescriptions as of 09/11/2017 Sig: X WARFARIN 5 MG TABLET 10 mg Mon/Fri and 7.5 mg all * X WARFARIN 5 MG TABLET 10 mg Mon/Fri and 7.5 mg all * LOSARTAN 50 MG TABLET TAKE ONE TABLET BY MOUTH ONCE* HYDROCHLOROTHIAZIDE 25 MG TAB* TAKE ONE TABLET BY MOUTH ONCE* X BUPROPION XL 150 MG TAB Take 1 tablet by mouth once d* X VITAMIN D2 50,000 UNIT CAPSULE TAKE ONE CAPSULE BY MOUTH JOAN* POTASSIUM CHLORIDE ER 20 MEQ * Take 1 tablet by mouth twice * COMPOUNDED PRESCRIPTION AutoPAP 5-15 cmH2O with humid* X FERROUS GLUCONATE 324 MG (38 * Take 1 tablet by mouth once d* Patient not taking: Reported on 09/28/2017 Problem List As Of Date 09/11/2017 Noted Resolved ADJUSTMENT DISORDER WITH DEPRESSED MOOD [F43.21]INVALID FOR* Essential Hypertension, Benign [I10] INVALID FOR* Obesity [E66.9] INVALID FOR* Calcaneal spur [M77.30] INVALID FOR* Left leg DVT [I82.402] INVALID FOR* intermediate project manager (current) use of anticoagulants [Z79.*INVALID FOR* KERVIN (iron deficiency anemia) [D50.9] INVALID FOR* Vitamin D deficiency [E55.9] INVALID FOR* Positive occult stool blood test [R19.5] Benign pigmented mole [D22.9] INVALID FOR* More... Hematuria [R31.9] INVALID FOR* Menorrhagia with irregular cycle [N92.1] INVALID FOR*07/12/2016 History of DVT (deep vein thrombosis) [Z86.718] INVALID FOR* Deep vein thrombosis (DVT) of left lower extrem*INVALID FOR* Steroid-induced hyperglycemia [R73.9, T38.0X5A] INVALID FOR* Obstructive sleep apnea [G47.33] INVALID FOR* Encounter Status:Closed by JANE JACOB on 03/08/18 CNCO Observed: 09/10/2017 Status: COMPLETED Source: [place] 9:03 AM [facility] REPOSITORY O ID: [id number] Author: Mammography Coordinator Service: (none) Author Type: Physician Type: Letter Filed: 09/11/2017 11:31 PM Note Text: September 10, 2017 PID: [id number] Carmelo Best [address] [place] [address] Dear Ms. Best, We are pleased to inform you that the results of your recent breast imaging exam on 09/10/2017 are normal. Early detection of cancer is very important. We also understand recommendations regarding breast cancer screening are controversial. Please discuss with your primary care provider which strategy is best for you and whether a mammogram is right for you. Your imaging studies and report will be kept on file at [facility] as part of your permanent medical record and are available for your continuing care. Thank you for allowing us to help in meeting your health care needs. Sincerely, Dr. Flanagan Interpreting Radiologist [facility] (Normal over 40) [facility] SCREENING Observed: 09/10/2017 Status: F Source: [place] 8:51 AM [facility] REPOSITORY * * *Final Report* * * DATE OF EXAM: Sep 10 2017 8:51AM [facility] [id number] - [facility] SCREENING / PROCEDURE REASON: Encounter for screening mammogram for malignant neoplasm of breast * * * * Physician Interpretation * * * * RESULT: #[id number] - [facility] SCREENING BILATERAL DIGITAL SCREENING MAMMOGRAM WITH CAD: 09/10/2017 HISTORY: Encounter For Screening Mammogram For Malignant Neoplasm Of Breast. RESULT: TECHNIQUE: The study was acquired using full field digital technology and interpreted from soft copy. Current study was also evaluated with a Computer Aided Detection (CAD). Comparison is made to exams dated: 06/13/2016 mammogram and 03/11/2015 mammogram - [facility]. The tissue of both breasts is predominantly fatty. No significant masses, calcifications, or other findings are seen in either breast. There has been no significant interval change. IMPRESSION: NEGATIVE There is no mammographic evidence of malignancy.A 1 year screening mammogram is recommended. Hui Flanagan M.D. ar/penrad:09/10/2017 09:03:19 Tile Edger: Roxy Bhatia RTApril)([place]), [facility] letter sent: Normal over 40 Mammogram BI-RADS: 1 Negative Fusion Juncture Grinder: Neil Transcribe Date/Time: Sep 10 2017 8:39A Dictated by: HUI FLANAGAN MD This examination was interpreted and the report reviewed and electronically signed by: HUI FLANAGAN MD on Sep 10 2017 9:03AM EST [id number] PROGRESS Observed: 09/10/2017 Status: COMPLETED Source: [place] 8:06 AM [facility] RE[facility] HNO ID: [id number] Author: Gifty Bowden) Jess Service: (none) Author Type: Nurse Practitioner Type: Progress Notes Filed: 09/10/2017 8:29 AM Note Text: Transitions Manager Rn offered: Patient declines. Carmelo Best is a 47 year old who presents for her annual gynecologic exam without complaints. Vaginal hyst- Dr Hatch 2015 for endometrial hyperplasia Menses: no menses - postmenopausal. Contraception: hysterectomy HPV vaccine: No Last Pap: 2011 normal HPV: negative History of abnormal pap: Yes Last mammogram: 2017 pending Sexually active: Yes Patient concerns for STD exposure: No. Pain with intercourse: No Postcoital bleeding: No Hot flashes: Yes Night sweats: Yes Vaginal dryness: No Obstetric History T3 L3 SAB0 TAB0 Ectopic0 Multiple0 Live Births0 PAST MEDICAL HISTORY Diagnosis Date - Hypertension - Left leg DVT (HCC) 02/27/2011 x1 (2010), s/p left foot surgery; x2 (2011) - Pneumonia - Positive occult stool blood test - Snoring PAST SURGICAL HISTORY Procedure Laterality Date - COLONOSCOP W/ OR W/O BRSH SPEC 08/03/2014 Colonoscopy - EGD W/O OR W/BRUSH/WASH 08/03/2014 EGD - HYSTERECTOMY HX 09/2015 - HYSTEROSCOPY BX W/WO DANDC 04/06/15 - INSERT INTRAUTERINE DEVICE 04/06/15 Mirena Insertion - LIGATE FALLOPIAN TUBE 2006 - PAST SURGICAL HISTORY OF Heel spur-left - REMOVAL GALLBLADDER 2000 laparoscopic FAMILY HISTORY Problem Relation Age of Onset - Hypertension Mother - Cancer Father lung bone bladder - Ischemic Heart Disease Maternal Grandmother SOCIAL HISTORY Social History Substance Use Topics - Smoking status: Never Smoker - Smokeless tobacco: Never Used - Alcohol use Yes Comment: very occasional REVIEW OF SYSTEMS Abdomen: No abdominal pain, nausea, vomiting, or constipation. No bloating, early satiety, indigestion, or increased flatulence. Diarrhea-gallbladder removed Bladder: No dysuria, gross hematuria, urinary frequency, urinary urgency, or incontinence. Breast: No breast lumps, nipple d/c, overlying skin changes, redness or skin retraction. Allergies and current medication updated:Yes EXAM: Ht 5' 8.701 (1.75m) Wt 314 lb (142.4kg) LMP 09/03/2015 BMI 46.77 kg/(m2). GENERAL: pleasant, female in no apparent distress HEENT: Normocephalic, atraumatic, mucus membranes moist and no lesions NECK: Supple, full range of motion, no adenopathy and thyroid normal DERMATOLOGY: Normal, without lesions, non-icteric and non-hirsute BREAST: soft, non-tender, symmetric, no dominant mass, normal nipple-areolar complex, no lymphadenopathy and no nipple discharge CHEST: Normal inspiratory effort ABDOMEN: soft, non-tender and no masses PELVIC: external genitalia normal, normal Bartholin's glands, urethra, [place]'s glands, no vulvar lesions, good vaginal support, physiologic discharge present, normal appearing perineal body and perianal region, cervix surgically absent BIMANUAL: no adnexal masses, non-tender and uterus surgically absent RECTOVAGINAL: deferred. NEURO: alert and oriented x3,exam grossly non-focal EXTREMITIES: normal ASSESSMENT/PLAN: 1) Health maintenance: Mammogram up to date . Nutrition, exercise and routine health maintenance exams reviewed. Calcium/Vitamin D supplementation information provided. 2) Contraception: hysterectomy. Contraceptive options reviewed and information provided. 3) STD screening: Declined STD check. 4) Follow up one year or sooner as needed Gifty Mercado APRN.JULISSA CNOV Observed: 09/10/2017 Status: COMPLETED Source: [place] 8:00 AM [facility] REPOSITORY Office Visit (WOOB) CARMELO BEST ([id number]) 1970 F Date Time Provider Department 09/10/17 8:00 AM GIFTY MERCADO (JULISSA) DONNA During your visit today, we recorded the following information about you: Blood pressure Weight Height 134/80 142.4 kg 1.745 m Gifty Mercado APRN.CNP 09/10/2017 8:29 AM Signed Transitions Manager Rn offered: Patient declines. Carmelo Best is a 47 year old who presents for her annual gynecologic exam without complaints. Vaginal hyst- Dr Hatch 2015 for endometrial hyperplasia Menses: no menses - postmenopausal. Contraception: hysterectomy HPV vaccine: No Last Pap: 2011 normal HPV: negative History of abnormal pap: Yes Last mammogram: 2017 pending Sexually active: Yes Patient concerns for STD exposure: No. Pain with intercourse: No Postcoital bleeding: No Hot flashes: Yes Night sweats: Yes Vaginal dryness: No Obstetric History T3 L3 SAB0 TAB0 Ectopic0 Multiple0 Live Births0 PAST MEDICAL HISTORY Diagnosis Date - Hypertension - Left leg DVT (HCC) 02/27/2011 x1 (2010), s/p left foot surgery; x2 (2011) - Pneumonia - Positive occult stool blood test - Snoring PAST SURGICAL HISTORY Procedure Laterality Date - COLONOSCOP W/ OR W/O BRSH SPEC 08/03/2014 Colonoscopy - EGD W/O OR W/BRUSH/WASH 08/03/2014 EGD - HYSTERECTOMY HX 09/2015 - HYSTEROSCOPY BX W/WO DANDamp;C 04/06/15 - INSERT INTRAUTERINE DEVICE 04/06/15 Mirena Insertion - LIGATE FALLOPIAN TUBE 2006 - PAST SURGICAL HISTORY OF Heel spur-left - REMOVAL GALLBLADDER 2000 laparoscopic FAMILY HISTORY Problem Relation Age of Onset - Hypertension Mother - Cancer Father lung bone bladder - Ischemic Heart Disease Maternal Grandmother SOCIAL HISTORY Social History Substance Use Topics - Smoking status: Never Smoker - Smokeless tobacco: Never Used - Alcohol use Yes Comment: very occasional REVIEW OF SYSTEMS Abdomen: No abdominal pain, nausea, vomiting, or constipation. No bloating, early satiety, indigestion, or increased flatulence. Diarrhea-gallbladder removed Bladder: No dysuria, gross hematuria, urinary frequency, urinary urgency, or incontinence. Breast: No breast lumps, nipple d/c, overlying skin changes, redness or skin retraction. Allergies and current medication updated:Yes EXAM: Ht 5' 8.701ANDquot; (1.75m) Wt 314 lb (142.4kg) LMP 09/03/2015 BMI 46.77 kg/(m2). GENERAL: pleasant, female in no apparent distress HEENT: Normocephalic, atraumatic, mucus membranes moist and no lesions NECK: Supple, full range of motion, no adenopathy and thyroid normal DERMATOLOGY: Normal, without lesions, non-icteric and non-hirsute BREAST: soft, non-tender, symmetric, no dominant mass, normal nipple-areolar complex, no lymphadenopathy and no nipple discharge CHEST: Normal inspiratory effort ABDOMEN: soft, non-tender and no masses PELVIC: external genitalia normal, normal Bartholin's glands, urethra, [place]'s glands, no vulvar lesions, good vaginal support, physiologic discharge present, normal appearing perineal body and perianal region, cervix surgically absent BIMANUAL: no adnexal masses, non-tender and uterus surgically absent RECTOVAGINAL: deferred. NEURO: alert and oriented x3,exam grossly non-focal EXTREMITIES: normal ASSESSMENT/PLAN: 1) Health maintenance: Mammogram up to date . Nutrition, exercise and routine health maintenance exams reviewed. Calcium/Vitamin D supplementation information provided. 2) Contraception: hysterectomy. Contraceptive options reviewed and information provided. 3) STD screening: Declined STD check. 4) Follow up one year or sooner as needed Gifty Mercado, LYNNE.JULISSA Referring Provider: SELF [200] Allergies As of Date: 09/10/2017 (No Known Allergies) Date Reviewed: 09/10/2017 Reviewed by: Gifty Mercado - Fully Assessed Reason for Visit: Yearly Exam [187] Primary Visit Diagnosis:Encounter for gynecological examination (general) (routine) without abnormal findings [Z01.419] Other Visit Diagnosis:Encounter for screening mammogram for breast cancer [Z12.31] Order(s):[facility] SCREENING [[id number]] Order #: [id number] FUTURE Prescriptions as of 09/10/2017 Sig: WARFARIN 5 MG TABLET Take 10 mg Mon, Wed, Fri and * WARFARIN 5 MG TABLET Take 10 mg Mon, Wed, Fri and * LOSARTAN 50 MG TABLET TAKE ONE TABLET BY MOUTH ONCE* HYDROCHLOROTHIAZIDE 25 MG TAB* TAKE ONE TABLET BY MOUTH ONCE* BUPROPION XL 150 MG TAB Take 1 tablet by mouth once d* VITAMIN D2 50,000 UNIT CAPSULE TAKE ONE CAPSULE BY MOUTH JOAN* POTASSIUM CHLORIDE ER 20 MEQ * Take 1 tablet by mouth twice * COMPOUNDED PRESCRIPTION AutoPAP 5-15 cmH2O with humid* FERROUS GLUCONATE 324 MG (38 * Take 1 tablet by mouth once d* Problem List As Of Date 09/10/2017 Noted Resolved ADJUSTMENT DISORDER WITH DEPRESSED MOOD [F43.21]INVALID FOR* Essential Hypertension, Benign [I10] INVALID FOR* Obesity [E66.9] INVALID FOR* Calcaneal spur [M77.30] INVALID FOR* Left leg DVT [I82.402] INVALID FOR* custodial (current) use of anticoagulants [Z79.*INVALID FOR* KERVIN (iron deficiency anemia) [D50.9] INVALID FOR* Vitamin D deficiency [E55.9] INVALID FOR* Positive occult stool blood test [R19.5] Benign pigmented mole [D22.9] INVALID FOR* More... Hematuria [R31.9] INVALID FOR* Menorrhagia with irregular cycle [N92.1] INVALID FOR*07/12/2016 History of DVT (deep vein thrombosis) [Z86.718] INVALID FOR* Deep vein thrombosis (DVT) of left lower extrem*INVALID FOR* Steroid-induced hyperglycemia [R73.9, T38.0X5A] INVALID FOR* Obstructive sleep apnea [G47.33] INVALID FOR* Disposition: Return in 1 year (on 09/10/2018) for Annual Exam. Follow-up and Disposition History Recorded Encounter Status:Closed by GIFTY MERCADO on 09/10/17 PROGRESS Observed: 08/09/2017 Status: COMPLETED Source: [place] 4:26 PM [facility] REPOSITORY HNO ID: [id number] Author: Steven Shelby Service: (none) Author Type: Physician Type: Progress Notes Filed: 08/09/2017 4:26 PM Note Text: INR therapeutic. Continue current coumadin dosage and follow up in 4 weeks. PROGRESS Observed: 08/09/2017 Status: COMPLETED Source: [place] 3:46 PM [facility] REPOSITORY HNO ID: [id number] Author: Cece Melgoza RN Service: (none) Author Type: (none) Type: Progress Notes Filed: 08/09/2017 3:59 PM Note Text: patient had inr completed at [facility] patients inr is 2.7 (patients inr range is 2.0-3.0) patient is currently taking 10mg Mon,Wed,Fri and 7.5mg all other days patients last dose change was on 07/25/17 due to a low level of 1.9 (dose at that time was 10mg Mon,Fri and 7.5mg all other days) patient has had no changes in medication and no missed doses and no change in diet Advised patient to continue on the same dose(s) and that they would only be contacted regarding dosage and follow up instructions after review with provider, if a change is needed. Written instructions given and patient verbalized understanding. Presently scheduled in 4 weeks (09/11/17) for follow up INR. PROTIME Collected: 07/24/2017 Status: F Source: [place] 3:28 PM [facility] REPOSITORY TYPE CODE TESTS RESULT OUT OF RANGE REFERENCE UNITS LAB PSEC 9.7-13.0 sec High PT Sec 18.5 LAB INR 0.9-1.3 High PT INR 1.9 Result Comment: Vitamin K Antagonist (VKA) Therapeutic Range: INR 2 to 3 (Target INR of 2.5) Note: For patients treated with VKA drugs, such as warfarin, the [place] [employer] 2012 Guideline recommends a therapeutic INR range of 2 to 3 (target INR of 2.5). This recommendation includes high-risk patients with antiphospholipid syndrome with previous arterial or venous thromboembolism, current-generation mechanical or bioprosthetic aortic heart valve replacement. Note: Patients with mechanical aortic valve replacement and additional risk factors for thromboembolic events (atrial fibrillation, previous thromboembolism, LV dysfunction, hypercoagulable conditions) or an older generation mechanical AVR (i.e., ball in-Cage) or any mechanical MVR should have a INR therapeutic range of 2.5 to 3.5 (target INR of 3). Napoleon GH, et al. Chest 2012, 141:7S-47S Rusty RA, et al. [facility] 2017, 70: 252-289 Performed By: #### PT #### [facility] [address] [address] PROGRESS Observed: 06/26/2017 Status: COMPLETED Source: [place] 4:58 PM [facility] REPOSITORY HNO ID: [id number] Author: Patrick Lopez Service: (none) Author Type: Physician Type: Progress Notes Filed: 06/26/2017 5:02 PM Note Text: I agree with the advice given; stay same and recheck in 4 weeks Patrick Lopez MD PROGRESS Observed: 06/26/2017 Status: COMPLETED Source: [place] 4:46 PM [facility] REPOSITORY HNO ID: [id number] Author: Cece Melgoza RN Service: (none) Author Type: (none) Type: Progress Notes Filed: 06/26/2017 4:47 PM Note Text: patient had inr completed at [facility] patients inr is 2.8 (patients inr range is 2.0-3.0) patient is currently taking 10mg Mon,Fri and 7.5mg all other days patient has had no changes in medication and no change in diet Advised patient to continue on the same dose(s) and that they would only be contacted regarding dosage and follow up instructions after review with provider, if a change is needed. Written instructions given and patient verbalized understanding. Presently scheduled in 4 weeks (07/23/17) for follow up INR. HOSP Observed: 06/26/2017 Status: COMPLETED Source: [place] 4:00 PM [facility] REPOSITORY Anticoagulation Visit (COUMWS) CARMELO BEST ([id number]) 1970 F Date Time Provider Department 06/26/17 4:00 PM [facility] COUMWS During your visit today, we recorded the following information about you: Cece Melgoza RN 06/26/2017 4:47 PM Signed patient had inr completed at [facility] patients inr is 2.8 (patients inr range is 2.0-3.0) patient is currently taking 10mg Mon,Fri and 7.5mg all other days patient has had no changes in medication and no change in diet Advised patient to continue on the same dose(s) and that they would only be contacted regarding dosage and follow up instructions after review with provider, if a change is needed. Written instructions given and patient verbalized understanding. Presently scheduled in 4 weeks (07/23/17) for follow up INR. Patrick Lopez MD 06/26/2017 5:02 PM Signed I agree with the advice given; stay same and recheck in 4 weeks Patrick Lopez MD Referring Provider: PATRICK LOPEZ [[id number]] Allergies As of Date: 06/26/2017 (No Known Allergies) Date Reviewed: 06/26/2017 Reviewed by: Cece Melgoza RN - Fully Assessed Reason for Visit: Anticoagulation [8] Primary Visit Diagnosis:Deep vein thrombosis (DVT) of distal vein of left lower extremity, unspecified chronicity (HCC) [I82.4Z2] Prescriptions as of 06/26/2017 Sig: HYDROCHLOROTHIAZIDE 25 MG TAB* TAKE ONE TABLET BY MOUTH ONCE* BUPROPION XL 150 MG TAB Take 1 tablet by mouth once d* VITAMIN D2 50,000 UNIT CAPSULE TAKE ONE CAPSULE BY MOUTH JOAN* WARFARIN 5 MG TABLET TAKE 2 TABLETS (10 MG) BY COOPER* POTASSIUM CHLORIDE ER 20 MEQ * Take 1 tablet by mouth twice * WARFARIN 5 MG TABLET Take 10 mg Fri and 7.5 mg all* COMPOUNDED PRESCRIPTION AutoPAP 5-15 cmH2O with humid* LOSARTAN 50 MG TABLET Take 1 tablet by mouth once d* FERROUS GLUCONATE 324 MG (38 * Take 1 tablet by mouth once d* Problem List As Of Date 06/26/2017 Noted Resolved ADJUSTMENT DISORDER WITH DEPRESSED MOOD [F43.21]INVALID FOR* Essential Hypertension, Benign [I10] INVALID FOR* Obesity [E66.9] INVALID FOR* Calcaneal spur [M77.30] INVALID FOR* Left leg DVT [I82.402] INVALID FOR* custodial (current) use of anticoagulants [Z79.*INVALID FOR* KERVIN (iron deficiency anemia) [D50.9] INVALID FOR* Vitamin D deficiency [E55.9] INVALID FOR* Positive occult stool blood test [R19.5] Benign pigmented mole [D22.9] INVALID FOR* More... Hematuria [R31.9] INVALID FOR* Menorrhagia with irregular cycle [N92.1] INVALID FOR*07/12/2016 History of DVT (deep vein thrombosis) [Z86.718] INVALID FOR* Deep vein thrombosis (DVT) of left lower extrem*INVALID FOR* Steroid-induced hyperglycemia [R73.9, T38.0X5A] INVALID FOR* Obstructive sleep apnea [G47.33] INVALID FOR* Follow-up and Disposition History Recorded Encounter Status:Closed by ARGELIA BRAR MA on 06/26/17 ALLERGIES ALLERGIES DATE TYPE / CODE NAME / CODE REACTION SEVERITY SOURCE 10/30/2015 Drug No Known Unknown [facility] Allergy/416 Allergies/W92578 Hospital 396764(SNOM 0388(RXNORM) Repository ED CT) Drug NO KNOWN [facility] Class/22105 ALLERGIES [place] 1003(SNOMED Repository CT) ENCOUNTERS ENCOUNTERS ADMIT/DISCHARGE ACCOUNT ADMITTING ENCOUNTER LOCATION SOURCE NUMBER CLASS 06/03/2018 [id number] [facility] ing:MTLAB Repository 05/09/2018 [id number] [facility] ing:LABSPEC Repository 05/09/2018/05/09/20 [id number] Ambulatory [address] [place] Repository 04/20/2018/04/20/20 [id number] Ambulatory [address] Repository 04/01/2018/04/01/20 [id number] Ambulatory [address] Repository 04/01/2018 [id number] [facility] ing:LABSPEC Repository 03/25/2018 [id number] [facility] ing:EMPH Repository 03/09/2018/03/09/20 [id number] Ambulatory [address] [place] Repository 03/09/2018/03/11/20 [id number] Ambulatory [address] [place] Repository 03/08/2018 [id number] Ambulatory [facility] ing:LABSPEC Repository 03/08/2018/03/08/20 [id number] Ambulatory [address] Repository 03/01/2018 [id number] [facility] ing:LABSPEC Repository 03/01/2018/03/01/20 [id number] Ambulatory [address] Repository 03/01/2018/03/04/20 [id number] Ambulatory [facility] [place] Repository 02/13/2018/02/14/20 [id number] Ambulatory [facility] [place] Repository 01/22/2018/01/24/20 [id number] Ambulatory [facility] [place] Repository 01/18/2018/01/22/20 [id number] Ambulatory [facility] [place] Repository 01/17/2018/01/18/20 [id number] Ambulatory [facility] [place] Repository 01/03/2018 [id number] [facility]:LAB[facility] Repository 01/03/2018/01/04/20 [id number] Ambulatory [facility] [place] Repository 12/20/2017/12/25/19 [id number] Ambulatory [facility] [place] Repository 12/18/2017/12/19/19 [id number] Ambulatory [facility] [place] Repository 12/01/2017/12/02/19 [id number] Ambulatory [facility] [place] Repository 11/21/2017/11/23/19 [id number] Ambulatory [facility] [place] Repository 11/21/2017/11/22/19 [id number] Ambulatory [facility] [place] Repository 11/03/2017/11/04/19 [id number] Ambulatory [facility] [place] Repository 10/16/2017 [id number] [facility] [place] Repository 10/16/2017/10/18/19 [id number] Ambulatory [facility] [place] Repository 10/16/2017/10/17/19 [id number] Amb[facility] [place] Repository 10/05/2017/10/06/19 [id number] Ambulatory [facility] [place] Repository 09/28/2017/10/02/19 [id number] Ambulatory [facility] [place] Repository 09/28/2017/10/02/19 [id number] Ambulatory [facility] [place] Repository 09/18/2017 [id number] [facility] [place] Repository 09/18/2017 [id number] [facility] [place] Repository 09/11/2017/09/13/19 [id number] Ambulatory [facility] [place] Repository 09/10/2017/09/11/19 [id number] Ambulatory [facility] [place] Repository 09/10/2017/09/14/19 [id number] Ambulatory [address] Repository 08/09/2017/08/11/19 [id number] Ambulatory [address] Repository 07/24/2017/07/24/19 [id number] Ambulatory [address] Repository 06/26/2017/06/27/19 [id number] Ambulatory [address] Repository PAYERS PAYERS ENCOUNTER GUARANTOR PAYER SUBSCRIBER SOURCE 06/03/2018 CARMELO [id number] Primary Insurance:[facility] CARMELO ARENASB: [place] [address] [place] [id number] [address]Svd: (330) Number: Repository [phone] () [id number] Date:2484-14-57[address] [address] [address]PO: CHECK WEBSITE 06/03/2018 Secondary NOT GIVENUNK [place] Insurance:SELF PAY [facility] Number: Effective Repository Date:2018-06-03 05/09/2018 CARMELO [id number] Primary CARMELO BESTDOB: [place] Insurance:[employer]P [id number]: [facility] [address]Oxn: 330 [id number] Repository [phone] () Date:2018-05-09[address]ATTN: [place] [address]RZ: 05/09/2018 Secondary NOT GIVENUNK [place] Insurance:SELF PAY [facility] Number: Effective Repository Date:2018-05-09 04/01/2018 CARMELO [id number] Primary CARMELO ARENASB: [place] Insurance:[place] [id number] [address]Mgv: 330) [facility] Number: Repository [phone] () [id number] Date:9514-95-17[address] [address]AQ: 04/01/2018 Secondary NOT GIVENUNK [place] Insurance:SELF PAY [facility] Number: Effective Repository Date:2018-04-01 03/25/2018 CARMELO Cooley [id number] Primary NOT GIVENUNK [place] Insurance:SELF PAY [facility] [address]Lyc: (330) Number: Effective Repository [phone] () Date:2018-03-23 03/08/2018 CARMELO Cooley [id number] Primary CARMELO BESTDOB: [place] Insurance:[place] [id number] [facility] [address]Qzi: (330) PLANPolicy Number: Repository [phone] () [id number] Date:5699-78-23TQ [address] [place] [address] [place] [address]BC: 03/08/2018 Secondary NOT GIVENUNK [place] Insurance:SELF PAY [facility] Number: Effective Repository Date:2018-03-08 03/01/2018 CARMELO Cooley [id number] Primary CARMELO BESTDOB: [place] Insurance:[employer] [id number] [facility] [address]Zmo: (330) PLANPolicy Number: Repository [phone] () [id number] Date:9154-09-61RJ [address] [place] [address]CD: 03/01/2018 Secondary NOT GIVENUNK [place] Insurance:SELF PAY [facility] Number: Effective Repository Date:2018-03-01 01/03/2018 Carmelo Cooley [id number] Primary NOT GIVENUNK [place] Insurance:SELF PAY [facility] [id number]: (330) Number: Effective Repository [phone] () Date:2018-01-03
== END ==
PROVIDERS: Referring Provider Family Medicine; Visit Provider Family Medicine
DX: I82.4Z2 Acute embolism and thrombosis of unspecified deep veins of left distal lower extremity (principal); Z79.01 Long term (current) use of anticoagulants
CPT/HCPCS: 85610

== ENCOUNTER 2018-06-03 10:57 | Outpatient (RCR) | payer OTHER, SELFPAY ==
[2018-06-03 14:20] LABS: International Normalized Ratio 2.6; Prothrombin Time (Protime)PT. 27.8 SECONDS (11.7-14.9)
== END 2018-06-03 12:00 | disposition home or self-care (01) ==
LOC: MTLAB 10:57
PROVIDERS: Family Provider Family Medicine; PCP Family Medicine; Referring Provider Family Medicine; Visit Provider Family Medicine
DX: I82.492 Acute embolism and thrombosis of other specified deep vein of left lower extremity (principal)
CPT/HCPCS: 36415; 85610

== ENCOUNTER 2018-07-04 06:22 | Outpatient (RCR) | payer OTHER, SELFPAY ==
[2018-07-04 07:29] LABS: International Normalized Ratio 2.8; Prothrombin Time (Protime)PT. 29.4 SECONDS (11.7-14.9)
== END 2018-07-25 15:02 | disposition home or self-care (01) ==
LOC: LAB 06:22
PROVIDERS: Family Provider Family Medicine; PCP Family Medicine; Referring Provider Family Medicine; Visit Provider Family Medicine
DX: I82.492 Acute embolism and thrombosis of other specified deep vein of left lower extremity (principal)
CPT/HCPCS: 36415; 85610

== ENCOUNTER 2018-08-05 10:50 | Outpatient (RCR) | payer OTHER, SELFPAY ==
[2018-08-05 11:31] LABS: International Normalized Ratio 2.9; Prothrombin Time (Protime)PT. 30.5 SECONDS (11.7-14.9)
== END 2018-08-05 11:50 | disposition home or self-care (01) ==
LOC: LAB 10:50
PROVIDERS: Family Provider Family Medicine; PCP Family Medicine; Referring Provider Family Medicine; Visit Provider Family Medicine
DX: I82.492 Acute embolism and thrombosis of other specified deep vein of left lower extremity (principal)
CPT/HCPCS: 36415; 85610

== ENCOUNTER 2018-09-10 16:00 | Outpatient (RCR) | payer OTHER, SELFPAY ==
[2018-09-10 18:10] LABS: International Normalized Ratio 2.8; Prothrombin Time (Protime)PT. 29.8 SECONDS (11.7-14.9)
== END 2018-09-24 16:00 | disposition home or self-care (01) ==
LOC: LAB 16:00
PROVIDERS: Family Provider Family Medicine; PCP Family Medicine; Referring Provider Family Medicine; Visit Provider Family Medicine
DX: I82.492 Acute embolism and thrombosis of other specified deep vein of left lower extremity (principal)
CPT/HCPCS: 36415; 85610

== ENCOUNTER 2018-10-02 10:19 | Outpatient (RCR) | payer OTHER, SELFPAY ==
[2018-10-02 11:16] LABS: International Normalized Ratio 2.7; Prothrombin Time (Protime)PT. 28.8 SECONDS (11.7-14.9)
== END 2018-10-02 11:00 | disposition home or self-care (01) ==
LOC: LAB 10:19
PROVIDERS: Family Provider Family Medicine; PCP Family Medicine; Referring Provider Family Medicine; Visit Provider Family Medicine
DX: I82.492 Acute embolism and thrombosis of other specified deep vein of left lower extremity (principal)
CPT/HCPCS: 36415; 85610

== ENCOUNTER 2018-10-30 11:12 | Outpatient (RCR) | payer OTHER, SELFPAY ==
[2018-10-30 11:51] LABS: International Normalized Ratio 2.9; Prothrombin Time (Protime)PT. 30.3 SECONDS (11.7-14.9)
== END 2018-11-24 12:00 | disposition home or self-care (01) ==
LOC: LAB 11:12
PROVIDERS: Family Provider Internal Medicine; PCP Internal Medicine; Referring Provider Family Medicine; Visit Provider Family Medicine
DX: I82.492 Acute embolism and thrombosis of other specified deep vein of left lower extremity (principal)
CPT/HCPCS: 36415; 85610

== ENCOUNTER 2018-12-25 09:48 | Outpatient (RCR) | payer OTHER, SELFPAY ==
[2018-11-01 11:11] VITALS: BMI 43.4
[2018-11-29 11:13] LABS: International Normalized Ratio 3.3; Prothrombin Time (Protime)PT. 34.1 SECONDS (11.7-14.9)
[2018-12-02 09:54] LABS: Hepatitis B Surface Antibody Reactive
[2018-12-25 10:51] LABS: International Normalized Ratio 2.6; Prothrombin Time (Protime)PT. 28.3 SECONDS (11.7-14.9)
== END 2018-12-25 17:20 | disposition home or self-care (01) ==
LOC: LAB 09:48
PROVIDERS: Family Provider Internal Medicine; PCP Internal Medicine; Referring Provider Internal Medicine; Visit Provider Internal Medicine
DX: I82.492 Acute embolism and thrombosis of other specified deep vein of left lower extremity (principal)
CPT/HCPCS: 36415; 85610; 86706

== ENCOUNTER 2019-01-25 09:45 | Outpatient (RCR) | payer OTHER, SELFPAY ==
[2018-11-01 11:11] VITALS: BMI 43.4
[2019-01-07 11:12] VITALS: BMI 44.4
[2019-01-25 10:19] LABS: International Normalized Ratio 2.5
== END 2019-01-25 18:00 | disposition home or self-care (01) ==
LOC: LAB 09:45
PROVIDERS: Family Medicine; Family Provider Internal Medicine; PCP Internal Medicine; Referring Provider Internal Medicine; Visit Provider Internal Medicine
DX: I82.492 Acute embolism and thrombosis of other specified deep vein of left lower extremity (principal)
CPT/HCPCS: 36415; 85610

== ENCOUNTER 2019-02-28 11:54 | Outpatient (RCR) | payer OTHER, SELFPAY ==
[2019-01-07 11:12] VITALS: BMI 44.4
[2019-02-28 13:01] LABS: International Normalized Ratio 2.2; Prothrombin Time (Protime)PT. 24.4 SECONDS (11.7-14.9)
== END 2019-02-28 18:00 | disposition home or self-care (01) ==
LOC: LAB 11:54
PROVIDERS: Nurse Practitioner Family; Family Provider Internal Medicine; PCP Internal Medicine; Referring Provider Internal Medicine; Visit Provider Internal Medicine
DX: Z86.718 Personal history of other venous thrombosis and embolism (principal)
CPT/HCPCS: 36415; 85610

== ENCOUNTER 2019-04-11 15:18 | Outpatient (RCR) | payer OTHER, SELFPAY ==
[2019-01-07 11:12] VITALS: BMI 44.4
[2019-04-09 16:06] VITALS: BMI 44.4
[2019-04-11 16:13] LABS: International Normalized Ratio 2.4; Prothrombin Time (Protime)PT. 26.4 SECONDS (11.7-14.9)
== END 2019-04-11 18:00 | disposition home or self-care (01) ==
LOC: LAB 15:18
PROVIDERS: Family Provider Internal Medicine; PCP Internal Medicine; Referring Provider Internal Medicine; Visit Provider Internal Medicine
DX: Z86.718 Personal history of other venous thrombosis and embolism (principal)
CPT/HCPCS: 36415; 85610

== ENCOUNTER → 2019-04-18 15:22 | Outpatient (CLI) | payer OTHER, SELFPAY ==
[2019-04-09 16:06] VITALS: BMI 44.4
--- NOTE | 2019-04-18 15:31 | BI_ITS ---
MAMMOGRAPHY - BILATERAL SCREENING 3-D TOMOSYNTHESIS REASON FOR EXAM: Female, 48 years old. PERTINENT HISTORY: No significant family history. TECHNIQUE: 2-D mammograms and 3-D Tomosynthesis of the breast (s) were performed. CAD was performed. COMPARISON: September 10, 2017 FINDINGS: The breast composition is of scattered fibroglandular tissue. No dense spiculated masses or suspicious microcalcifications are identified. No architectural distortion is identified. There is no skin thickening or retraction. There has been no significant change since the prior study since September 10, 2017. BI/SCREEN MAMM (CAD) W/DANA BILAT IMPRESSION: No mammographic signs of malignancy. Routine yearly mammograms recommended. ASSESSMENT CATEGORY: BIRADS Category 1: Negative. A letter regarding these results will be sent to the patient by the facility within 30 days. FOLLOW UP RECOMMENDATION: Yearly follow up mammogram recommended. (A) Approximately 10% of breast cancers are not detected by mammography. A normal mammogram should not delay biopsy of a clinically suspicious abnormality. Electronically Signed: Lara Phillip, at 8:11 EST Tel , Service support ,
== END ==
PROVIDERS: Family Provider Internal Medicine; PCP Internal Medicine; Referring Provider Family Medicine; Visit Provider Family Medicine
DX: Z12.31 Encounter for screening mammogram for malignant neoplasm of breast (principal)
CPT/HCPCS: 77063; 77067

== ENCOUNTER 2019-05-31 09:02 | Outpatient (RCR) | payer OTHER, SELFPAY ==
[2019-04-09 16:06] VITALS: BMI 44.4
[2019-05-31 09:37] LABS: International Normalized Ratio 2.2; Prothrombin Time (Protime)PT. 24.1 SECONDS (11.7-14.9)
== END 2019-05-31 18:00 | disposition home or self-care (01) ==
LOC: LAB 09:02
PROVIDERS: Family Provider Internal Medicine; PCP Internal Medicine; Referring Provider Internal Medicine; Visit Provider Internal Medicine
DX: Z86.718 Personal history of other venous thrombosis and embolism (principal)
CPT/HCPCS: 36415; 85610

== ENCOUNTER 2019-07-03 11:19 | Outpatient (RCR) | payer OTHER, SELFPAY ==
[2019-04-09 16:06] VITALS: BMI 44.4
[2019-07-03 11:52] LABS: International Normalized Ratio 2.6; Prothrombin Time (Protime)PT. 28.1 SECONDS (11.7-14.9)
[2019-07-03 12:04] LABS: Anion Gap 3 (5-15); BUN 12 mg/dL (7-18); Calcium,Total 9.2 mg/dL (8.5-10.1); Chloride 107 mmol/L (98-107); EST Glomerular Filtration Rate 63 mL/min (>60); Est Glom Filt Rate - Afr Amer 76 mL/min (>60); Glucose 88 mg/dL (74-106); Potassium 3.4 mmol/L (3.5-5.1); Sodium Level 141 mmol/L (136-145)
== END 2019-07-03 18:00 | disposition home or self-care (01) ==
LOC: LAB 11:19
PROVIDERS: Family Provider Internal Medicine; PCP Internal Medicine; Referring Provider Internal Medicine; Visit Provider Internal Medicine
DX: I10 Essential (primary) hypertension (principal); Z86.718 Personal history of other venous thrombosis and embolism
CPT/HCPCS: 36415; 80048; 85610

== ENCOUNTER 2019-08-18 10:21 | Outpatient (RCR) | payer OTHER, SELFPAY ==
[2019-04-09 16:06] VITALS: BMI 44.4
[2019-07-30 11:55] LABS: Prothrombin Time Fingerstick 16.3 SEC (11.9-14.4)
[2019-08-04 18:04] LABS: International Normalized Ratio 1.4; Prothrombin Time (Protime)PT. 17.2 SECONDS (11.7-14.9)
[2019-08-08 14:56] LABS: Prothrombin Time (Protime)PT. 22.7 SECONDS (11.7-14.9)
[2019-08-18 10:35] LABS: Prothrombin Time Fingerstick 39.6 SEC (11.9-14.4)
[2019-08-18 13:01] LABS: International Normalized Ratio 3.4; Prothrombin Time (Protime)PT. 34.9 SECONDS (11.7-14.9)
[2019-08-20 15:52] LABS: International Normalized Ratio 2.3; Prothrombin Time (Protime)PT. 24.8 SECONDS (11.7-14.9)
== END 2019-08-18 18:00 | disposition home or self-care (01) ==
LOC: LAB 10:21
PROVIDERS: Family Provider Internal Medicine; PCP Internal Medicine; Referring Provider Internal Medicine; Visit Provider Internal Medicine
DX: Z86.718 Personal history of other venous thrombosis and embolism (principal)
CPT/HCPCS: 36415; 36416; 85610

== ENCOUNTER 2019-10-13 11:42 | Outpatient (RCR) | payer OTHER, SELFPAY ==
[2019-08-20 13:40] VITALS: BMI 44.4
[2019-09-23 15:06] LABS: International Normalized Ratio 2.2; Prothrombin Time (Protime)PT. 23.8 SECONDS (11.7-14.9)
[2019-10-07 16:51] VITALS: BMI 44.4
[2019-10-13 15:26] LABS: International Normalized Ratio 2.7
== END 2019-10-13 18:00 | disposition home or self-care (01) ==
LOC: LAB 11:42
PROVIDERS: Family Provider Internal Medicine; PCP Internal Medicine; Referring Provider Internal Medicine; Visit Provider Internal Medicine
DX: Z86.718 Personal history of other venous thrombosis and embolism (principal)
CPT/HCPCS: 36415; 85610

== ENCOUNTER 2019-11-13 16:01 | Outpatient (RCR) | payer OTHER, SELFPAY ==
[2019-10-07 16:51] VITALS: BMI 44.4
[2019-11-13 17:13] LABS: International Normalized Ratio 2.4
== END 2019-11-13 18:00 | disposition home or self-care (01) ==
LOC: LAB 16:01
PROVIDERS: Family Provider Internal Medicine; PCP Internal Medicine; Referring Provider Internal Medicine; Visit Provider Internal Medicine
DX: Z86.718 Personal history of other venous thrombosis and embolism (principal)
CPT/HCPCS: 36415; 85610

== ENCOUNTER 2019-12-22 10:00 | Outpatient (RCR) | payer OTHER, SELFPAY ==
[2019-10-07 16:51] VITALS: BMI 44.4
[2019-12-22 11:42] LABS: International Normalized Ratio 1.9; Prothrombin Time (Protime)PT. 21.7 SECONDS (11.7-14.9)
== END 2019-12-26 12:06 | disposition home or self-care (01) ==
LOC: LAB 10:00
PROVIDERS: Family Provider Internal Medicine; PCP Internal Medicine; Referring Provider Internal Medicine; Visit Provider Internal Medicine
DX: Z86.718 Personal history of other venous thrombosis and embolism (principal)
CPT/HCPCS: 36415; 85610

== ENCOUNTER 2020-01-09 12:06 | Outpatient (RCR) | payer OTHER, SELFPAY ==
[2019-10-07 16:51] VITALS: BMI 44.4
[2020-01-16 13:06] LABS: Prothrombin Time (Protime)PT. 23.5 SECONDS (11.7-14.9)
[2020-01-16 13:08] LABS: International Normalized Ratio 2.1
== END 2020-01-26 18:00 | disposition home or self-care (01) ==
LOC: LAB 12:06
PROVIDERS: Family Provider Internal Medicine; PCP Internal Medicine; Referring Provider Internal Medicine; Visit Provider Internal Medicine
DX: Z86.718 Personal history of other venous thrombosis and embolism (principal)
CPT/HCPCS: 85610

== ENCOUNTER 2020-02-17 13:22 | Outpatient (RCR) | payer OTHER, SELFPAY ==
[2019-10-07 16:51] VITALS: BMI 44.4
[2020-02-17 13:11] VITALS: BMI 44.4
[2020-02-17 16:00] LABS: International Normalized Ratio 2.2; Prothrombin Time (Protime)PT. 23.6 SECONDS (11.7-14.9)
== END 2020-02-25 23:59 ==
LOC: BIMLAB 13:22
PROVIDERS: Family Provider Internal Medicine; PCP Internal Medicine; Referring Provider Internal Medicine; Visit Provider Internal Medicine
DX: Z86.718 Personal history of other venous thrombosis and embolism (principal)
CPT/HCPCS: 36415; 85610

== ENCOUNTER 2020-02-24 08:25 | Outpatient (RCR) | payer OTHER, SELFPAY ==
[2019-10-07 16:51] VITALS: BMI 44.4
== END 2020-02-25 23:59 ==
LOC: EMPH 08:25
PROVIDERS: PCP Internal Medicine; Visit Provider Family Medicine Geriatric Medicine
DX: Z11.59 Encounter for screening for other viral diseases (principal)
CPT/HCPCS: 87635; U0003

== ENCOUNTER 2020-03-25 08:54 | Outpatient (RCR) | payer OTHER, SELFPAY | END 2020-03-27 23:59 | LOC: EMPH 08:54 | PROVIDERS: PCP Internal Medicine; Visit Provider Family Medicine Geriatric Medicine | DX: Z03.818 Encounter for observation for suspected exposure to other biological agents ruled out (principal) | CPT/HCPCS: 87426 ==

== ENCOUNTER 2020-04-02 10:09 | Outpatient (RCR) | payer OTHER, SELFPAY | END 2020-04-26 23:59 | LOC: EMPH 10:09 | PROVIDERS: PCP Internal Medicine; Referring Provider Family Medicine Geriatric Medicine; Visit Provider Family Medicine Geriatric Medicine | DX: Z03.818 Encounter for observation for suspected exposure to other biological agents ruled out (principal) | CPT/HCPCS: 87426 ==

== ENCOUNTER → 2020-04-05 13:38 | Outpatient (CLI) | payer OTHER, SELFPAY ==
[2020-04-05 15:18] LABS: International Normalized Ratio 3.3; Prothrombin Time (Protime)PT. 33.3 SECONDS (11.7-14.9)
== END ==
PROVIDERS: Nurse Practitioner Family; PCP Internal Medicine; Referring Provider Internal Medicine; Visit Provider Internal Medicine
DX: Z86.718 Personal history of other venous thrombosis and embolism (principal)
CPT/HCPCS: 36415; 85610

== ENCOUNTER 2020-04-21 11:18 | Outpatient (RCR) | payer OTHER, SELFPAY ==
[2020-04-05 13:52] VITALS: BMI 44.8
[2020-04-21 12:39] LABS: International Normalized Ratio 2.2; Prothrombin Time (Protime)PT. 24.1 SECONDS (11.7-14.9)
== END 2020-04-26 23:59 ==
LOC: BIMLAB 11:18
PROVIDERS: Family Provider Internal Medicine; PCP Internal Medicine; Referring Provider Internal Medicine; Visit Provider Internal Medicine
DX: Z86.718 Personal history of other venous thrombosis and embolism (principal)
CPT/HCPCS: 36415; 85610

== ENCOUNTER 2020-05-11 10:45 | Outpatient (RCR) | payer OTHER, SELFPAY ==
--- NOTE | 2020-03-16 11:26 | MASS.EVAL_ITS ---
Massage Therapy Evaluation: Initial Evaluation Date: 03/15/2020 SUBJECTIVE: Zunilda is a 49 year old female who was referred to the [facility] for a massotherapy evaluation by Dr. Cr Eason with the diagnosis of muscle spasm. She presents today with the symptoms of pain, stiffness and tension in the neck, mid back, low back and hips. Zunilda reports having a past medical history of neck, shoulders, back pain and varicose veins. She reports that she has had blood clots in the past and is being treated with blood thinning medication for this condition. She reports having minimal improvement with exercise and stretching over the last few days. OBJECTIVE: Upon observation Zunilda has some posture issues with her head and shoulders forward from the neutral position in sitting and standing. After examination and palpation, I found Zunilda to have high muscle tension with tenderness and myofascial restrictions in her sub occipitals, levator scapulae, trapezius, rhomboids, scalenes, and thoracic paraspinals. Her QL?s, lumbar paraspinals, piriformis, glute medius and minimus all were very tight with fascial restrictions, tender points and trigger points. The first treatment consisted of a one hour massage to her upper body with myofascial release, muscle stripping, trigger point compression techniques, and cervical manual traction. Retail Experience Specialist pressure was used on her lower extremities secondary to her vascular issues. ASSESSMENT: I feel that Zunilda is a good candidate for massotherapy at this time. She had a favorable response to the first treatment with reduction in her muscle aches, pain and tension. She also had improvement in her cervical flexibility and low back flexibility. PLAN: The plan of care was reviewed with the patient. The patient is to be seen on an as needed basis for a total of ten sessions with the recommendation of once every month for a one hour treatment.
--- NOTE | 2020-05-13 12:15 | MASS.DISCH ---
Massage Therapy Discharge Summary: Discharge Date: 05/13/2020 Zunilda was seen for a massotherapy evaluation on 03/15/2020 with the diagnosis of muscle spasm. She was treated with two sessions of massage therapy consisting of deep pressure soft tissue techniques, myofascial release and trigger point compression to her cervical, thoracic, lower back, lower extremities and hips. Zunilda responded well to the therapy by reporting decreased tension and pain throughout her neck, shoulders, lower back and hips. Her goals for therapy were met throughout the treatment sessions. At this time this patient is being discharged from our care at [facility] facility.
== END 2020-05-11 19:00 | disposition home or self-care (01) ==
LOC: MASS 10:45
PROVIDERS: PCP Internal Medicine; Referring Provider Nurse Practitioner Family; Visit Provider Nurse Practitioner Family
DX: M62.838 Other muscle spasm (principal)
CPT/HCPCS: 97124

== ENCOUNTER → 2020-05-27 13:58 | Outpatient (CLI) | payer OTHER, SELFPAY ==
[2020-04-05 13:52] VITALS: BMI 44.8
[2020-05-27 15:44] LABS: International Normalized Ratio 2.5; Prothrombin Time (Protime)PT. 26.7 SECONDS (11.7-14.9)
== END ==
PROVIDERS: PCP Internal Medicine; Referring Provider Internal Medicine; Visit Provider Internal Medicine
DX: Z79.01 Long term (current) use of anticoagulants (principal)
CPT/HCPCS: 36415; 85610

== ENCOUNTER 2020-07-20 10:55 | Outpatient (RCR) | payer BC, SELFPAY ==
[2020-04-05 13:52] VITALS: BMI 44.8
[2020-07-20 12:28] LABS: International Normalized Ratio 2.4; Prothrombin Time (Protime)PT. 25.5 SECONDS (11.7-14.9)
== END 2020-07-25 23:59 ==
LOC: BIMLAB 10:55
PROVIDERS: Family Provider Internal Medicine; PCP Internal Medicine; Referring Provider Internal Medicine; Visit Provider Internal Medicine
DX: Z86.718 Personal history of other venous thrombosis and embolism (principal)
CPT/HCPCS: 36415; 85610

== ENCOUNTER → 2020-08-05 16:15 | Outpatient (CLI) | payer SELFPAY ==
[2020-07-20 11:15] VITALS: BMI 44.8
[2020-08-05 08:48] VITALS: BMI 45.6
--- NOTE | 2020-08-05 16:17 | BI_ITS ---
MAMMOGRAPHY - BILATERAL SCREENING REASON FOR EXAM: Female, 50 years old. Routine annual screening examination. PERTINENT HISTORY: Non-contributory. TECHNIQUE: Digital bilateral breast dana (3D mammographic acquisition) in the CC and MLO projections. 2-D mediolateral oblique (MLO) and craniocaudad (CC) views of both breasts were obtained. CAD: Full Field Digital Mammography with Computer Added Detection was performed. COMPARISON: Comparison is made with prior examination dated 04/18/2019. FINDINGS: Breast Composition: The breasts are almost entirely fatty. There is an 8.1 mm x 8 mm well-defined nodule in the slightly upper lateral anterior aspect of the left breast. Correlation with ultrasound is recommended. Stable benign appearing bilateral axillary lymph nodes. No other significant abnormalities are identified. BI/SCRN MAMM (CAD)W/DANA BILAT IMPRESSION: 8.1 mm x 8 mm well-defined nodule in the slightly upper lateral anterior aspect of the left breast as described. Correlation with ultrasound is recommended. ASSESSMENT CATEGORY: BIRADS Category 0: Incomplete. Need additional imaging evaluation. A letter regarding these results will be sent to the patient by the facility within 30 days. Approximately 10% of breast cancers are not detected by mammography. A normal mammogram should not delay biopsy of a clinically suspicious abnormality. [id number] Electronically Signed: Nish Vargas MD at 12:58 EDT , Service support ,
== END ==
PROVIDERS: PCP Internal Medicine; Referring Provider Nurse Practitioner Family; Visit Provider Nurse Practitioner Family
DX: Z12.31 Encounter for screening mammogram for malignant neoplasm of breast (principal)
CPT/HCPCS: 77063; 77067

== ENCOUNTER → 2020-08-11 08:59 | Outpatient (CLI) | payer SELFPAY ==
[2020-08-05 08:48] VITALS: BMI 45.6
--- NOTE | 2020-08-11 09:01 | US_ITS ---
STUDY: ULTRASOUND BREAST - LEFT REASON FOR EXAM: Female, 50 years old. Abnormal screening mammogram. TECHNIQUE: Axial and longitudinal images of the LEFT breast were performed with a high resolution ultrasound transducer. # OF IMAGES: 28 COMPARISON: Comparison is made with prior mammogram dated 08/05/2020. FINDINGS: LEFT Breast: The upper outer quadrant of the left breast was examined by ultrasound. The abnormality seen on the mammogram most likely represents a prominent venous vessel. US/Breast Limited Unilateral IMPRESSION: No significant abnormality is seen. Routine mammographic follow-up is recommended. ASSESSMENT CATEGORY: BIRADS Category 2: Benign. A letter regarding these results will be sent to the patient by the facility within 30 days. Electronically Signed: Nish Vargas MD at 10:43 EDT , Service support ,
== END ==
PROVIDERS: PCP Internal Medicine; Referring Provider Nurse Practitioner Family; Visit Provider Nurse Practitioner Family
DX: N63.20 Unspecified lump in the left breast, unspecified quadrant (principal)
CPT/HCPCS: 76642

== ENCOUNTER 2020-08-25 10:29 | Outpatient (RCR) | payer BC, SELFPAY ==
[2020-07-20 11:15] VITALS: BMI 44.8
[2020-08-05 08:48] VITALS: BMI 45.6
[2020-08-19 12:48] LABS: International Normalized Ratio 1.9; Prothrombin Time (Protime)PT. 20.9 SECONDS (11.7-14.9)
== END 2020-08-25 23:59 ==
LOC: BIMLAB 10:29
PROVIDERS: Family Provider Internal Medicine; PCP Internal Medicine; Referring Provider Internal Medicine; Visit Provider Internal Medicine
DX: Z86.718 Personal history of other venous thrombosis and embolism (principal)
CPT/HCPCS: 36415; 85610

== ENCOUNTER 2020-10-06 15:25 | Outpatient (RCR) | payer SELFPAY ==
[2020-08-05 08:48] VITALS: BMI 45.6
[2020-10-06 17:38] LABS: Prothrombin Time (Protime)PT. 22.1 SECONDS (11.7-14.9)
== END 2020-10-06 18:00 | disposition home or self-care (01) ==
LOC: MTLAB 15:25
PROVIDERS: Family Provider Internal Medicine; PCP Internal Medicine; Referring Provider Internal Medicine; Visit Provider Internal Medicine
DX: Z86.718 Personal history of other venous thrombosis and embolism (principal)
CPT/HCPCS: 36415; 85610

== ENCOUNTER 2020-11-19 09:47 | Outpatient (RCR) | payer OTHER, SELFPAY ==
[2020-08-05 08:48] VITALS: BMI 45.6
[2020-11-19 12:31] LABS: International Normalized Ratio 1.9; Prothrombin Time (Protime)PT. 20.6 SECONDS (11.7-14.9)
== END 2020-11-24 23:59 ==
LOC: BIMLAB 09:47
PROVIDERS: Family Provider Internal Medicine; PCP Internal Medicine; Referring Provider Internal Medicine; Visit Provider Internal Medicine
DX: Z86.718 Personal history of other venous thrombosis and embolism (principal)
CPT/HCPCS: 36415; 85610

== ENCOUNTER 2020-12-02 09:58 | Outpatient (RCR) | payer OTHER, SELFPAY ==
[2020-08-05 08:48] VITALS: BMI 45.6
[2020-12-02 12:44] LABS: International Normalized Ratio 2.3; Prothrombin Time (Protime)PT. 24.4 SECONDS (11.7-14.9)
== END 2020-12-25 23:59 ==
LOC: BIMLAB 09:58
PROVIDERS: Family Provider Internal Medicine; PCP Internal Medicine; Referring Provider Internal Medicine; Visit Provider Internal Medicine
DX: Z86.718 Personal history of other venous thrombosis and embolism (principal)
CPT/HCPCS: 36415; 85610

== ENCOUNTER 2021-02-03 10:39 | Outpatient (RCR) | payer OTHER, SELFPAY ==
[2020-08-05 08:48] VITALS: BMI 45.6
[2021-02-03 12:19] LABS: International Normalized Ratio 2.5; Prothrombin Time (Protime)PT. 26.3 SECONDS (11.7-14.9)
== END 2021-02-24 23:59 ==
LOC: BIMLAB 10:39
PROVIDERS: Family Provider Internal Medicine; PCP Internal Medicine; Referring Provider Internal Medicine; Visit Provider Internal Medicine
DX: Z79.01 Long term (current) use of anticoagulants (principal)
CPT/HCPCS: 36415; 85610

== ENCOUNTER → 2021-02-14 09:05 | Outpatient (CLI) | payer OTHER, SELFPAY ==
[2021-02-14 12:14] LABS: Absolute Lymphocyte Count 1.79 X10^3/uL (0.83-4.51); Absolute Neutrophil Count 3.5 X10^3/uL (2.0-7.7); Basophil# 0.05 X10^3/uL; Basophil% 0.8 % (0-1); Eosinophil# 0.26 X10^3/uL; Eosinophils% 4.3 % (0-5); Hematocrit 41.7 % (37-47); Hemoglobin 13.1 g/dL (12.0-15.0); Lymphocyte # 1.79 X10^3/ul (0.83-4.51); Lymphocyte % 29.7 % (19-41); Mean Corp Hgb Conc 31.4 g/dL (32-36); Mean Corpuscular Hgb 27.7 pg (27.0-32.0); Mean Corpuscular Volume 88.2 fL (81-99); Monocyte# 0.47 X10^3/uL; Monocyte% 7.8 % (0-10); NRBC Flagged by Analyzer 0 % (0-5); Neutrophil # 3.45 X10^3/uL (2.7-7.7); Neutrophil % 57.2 % (47-70); Platelet Count 238 K/mm3 (150-450); RBC Distribution Width CV 13.9 % (11.6-14.6); RBC Distribution Width SD 44.8 fl (35.1-43.9); Red Blood Count 4.73 M/mm3 (4.2-5.4)
[2021-02-14 12:28] LABS: ALB/GLOB Ratio 0.8 RATIO (0.9-2.4); AST(SGOT) 13 U/L (15-37); Alanine Aminotransfer ALT/SGPT 26 U/L (13-56); Albumin, Serum 3.1 g/dL (3.2-5.0); Alkaline Phosphatase 133 U/L (45-117); Anion Gap 5 (5-15); BUN 17 mg/dL (7-18); Calcium,Total 8.9 mg/dL (8.5-10.1); Chloride 105 mmol/L (98-107); Cholesterol 143 mg/dL (200); Creatinine, Serum 0.85 mg/dL (0.55-1.02); EST Glomerular Filtration Rate 75 mL/min (>60); Est Glom Filt Rate - Afr Amer 91 mL/min (>60); Globulin 4.1 g/dL (2.2-4.2); Glucose 92 mg/dL (74-106); High Density Lipoprotein 38 mg/dL; Potassium 3.8 mmol/L (3.5-5.1); Protein, Total 7.2 g/dL (6.4-8.2); Sodium Level 140 mmol/L (136-145); Triglycerides 159 mg/dL; Very Low Density Lipoprotein 32 mg/dL (5-40)
== END ==
PROVIDERS: PCP Internal Medicine; Referring Provider Internal Medicine; Visit Provider Internal Medicine
DX: I10 Essential (primary) hypertension (principal)
CPT/HCPCS: 36415; 80053; 80061; 85025

== ENCOUNTER 2021-03-10 08:47 | Outpatient (RCR) | payer OTHER, SELFPAY ==
[2021-02-25 00:07] VITALS: BMI 45.6
[2021-03-10 12:13] LABS: International Normalized Ratio 2.4; Prothrombin Time (Protime)PT. 25.2 SECONDS (11.7-14.9)
== END 2021-03-27 23:59 ==
LOC: BIMLAB 08:47
PROVIDERS: Family Provider Internal Medicine; PCP Internal Medicine; Referring Provider Internal Medicine; Visit Provider Internal Medicine
DX: Z79.01 Long term (current) use of anticoagulants (principal)
CPT/HCPCS: 36415; 85610

== ENCOUNTER 2021-04-29 11:05 | Outpatient (RCR) | payer OTHER, SELFPAY ==
[2021-03-28 00:07] VITALS: BMI 45.6
[2021-04-29 12:25] LABS: International Normalized Ratio 2.1; Prothrombin Time (Protime)PT. 23.1 SECONDS (11.7-14.9)
== END 2021-05-27 23:59 ==
LOC: BIMLAB 11:05
PROVIDERS: Family Provider Internal Medicine; PCP Internal Medicine; Referring Provider Internal Medicine; Visit Provider Internal Medicine
DX: Z79.01 Long term (current) use of anticoagulants (principal)
CPT/HCPCS: 36415; 85610

== ENCOUNTER 2021-06-21 12:22 | Outpatient (RCR) | payer OTHER, SELFPAY ==
[2021-05-28 00:05] VITALS: BMI 45.6
[2021-06-21 13:17] LABS: International Normalized Ratio 2.2; Prothrombin Time (Protime)PT. 23.6 SECONDS (11.7-14.9)
== END 2021-06-27 18:00 | disposition home or self-care (01) ==
LOC: LAB 12:22
PROVIDERS: Nurse Practitioner Family; Family Provider Internal Medicine; PCP Internal Medicine; Referring Provider Internal Medicine; Visit Provider Internal Medicine
DX: I82.492 Acute embolism and thrombosis of other specified deep vein of left lower extremity (principal)
CPT/HCPCS: 36415; 85610

== ENCOUNTER 2021-08-08 08:53 | Outpatient (RCR) | payer OTHER, SELFPAY ==
[2021-06-28 02:31] VITALS: BMI 45.6
[2021-08-08 12:07] LABS: International Normalized Ratio 2.2; Prothrombin Time (Protime)PT. 23.5 SECONDS (11.7-14.9)
== END 2021-08-25 23:59 | disposition home or self-care (01) ==
LOC: BIMLAB 08:53
PROVIDERS: Family Provider Internal Medicine; PCP Internal Medicine; Referring Provider Internal Medicine; Visit Provider Internal Medicine
DX: Z79.01 Long term (current) use of anticoagulants (principal)
CPT/HCPCS: 36415; 85610

== ENCOUNTER 2021-09-08 07:38 | Outpatient (RCR) | payer OTHER, SELFPAY ==
[2021-08-26 00:10] VITALS: BMI 45.6
[2021-08-30 10:18] LABS: International Normalized Ratio 2.6; Prothrombin Time (Protime)PT. 27.2 SECONDS (11.7-14.9)
[2021-09-08 10:33] LABS: International Normalized Ratio 2.1; Prothrombin Time (Protime)PT. 23.2 SECONDS (11.7-14.9)
== END 2021-09-08 18:00 | disposition home or self-care (01) ==
LOC: LAB 07:38
PROVIDERS: Family Provider Internal Medicine; PCP Internal Medicine; Referring Provider Internal Medicine; Visit Provider Internal Medicine
DX: Z79.01 Long term (current) use of anticoagulants (principal)
CPT/HCPCS: 36415; 85610

== ENCOUNTER → 2021-10-12 | Outpatient (CLI) | payer OTHER, SELFPAY ==
--- NOTE | 2021-10-12 07:40 | BI_ITS ---
MAMMOGRAPHY - BILATERAL SCREENING REASON FOR EXAM: Female, 51 years old. Routine annual screening examination. PERTINENT HISTORY: Non-contributory. TECHNIQUE: Digital bilateral breast dana (3D mammographic acquisition) in the CC and MLO projections. 2-D mediolateral oblique (MLO) and craniocaudad (CC) views of both breasts were obtained. CAD: Full Field Digital Mammography with Computer Added Detection was performed. COMPARISON: Comparison is made with prior study dated 08/05/2020 and 04/18/2019. FINDINGS: Breast Composition: The breasts are almost entirely fatty. There are no dominant masses or suspicious calcifications. Stable benign-appearing bilateral axillary lymph nodes. The previously seen nodular density in the slightly upper lateral anterior aspect of the left breast is not seen at this time. No other significant abnormalities are identified. BI/SCRN MAMM (CAD)W/DANA BILAT IMPRESSION: Stable bilateral screening mammogram. Yearly follow-up mammogram recommended. (A) ASSESSMENT CATEGORY: BIRADS Category 2: Benign. A letter regarding these results will be sent to the patient by the facility within 30 days. Approximately 10% of breast cancers are not detected by mammography. A normal mammogram should not delay biopsy of a clinically suspicious abnormality. [id number] Electronically Signed: Nish Vargas MD at 9:11 EDT ,
== END | disposition home or self-care (01) ==
PROVIDERS: PCP Internal Medicine; Referring Provider Nurse Practitioner Women's Health; Visit Provider Nurse Practitioner Women's Health
DX: Z12.31 Encounter for screening mammogram for malignant neoplasm of breast (principal)
CPT/HCPCS: 77063; 77067

== ENCOUNTER 2021-10-31 07:07 | Outpatient (RCR) | payer OTHER, SELFPAY ==
[2021-09-25 04:32] VITALS: BMI 45.6
[2021-10-31 10:31] LABS: International Normalized Ratio 2.3; Prothrombin Time (Protime)PT. 25.3 SECONDS (11.7-14.9)
== END 2021-11-24 16:00 | disposition home or self-care (01) ==
LOC: MTLAB 07:07
PROVIDERS: Family Provider Internal Medicine; PCP Internal Medicine; Referring Provider Internal Medicine; Visit Provider Internal Medicine
DX: Z79.01 Long term (current) use of anticoagulants (principal)
CPT/HCPCS: 36415; 85610

== ENCOUNTER 2022-01-27 08:06 | Outpatient (RCR) | payer OTHER, SELFPAY ==
[2021-11-25 10:12] VITALS: BMI 45.6
[2022-01-27 10:19] LABS: International Normalized Ratio 2.5; Prothrombin Time (Protime)PT. 26.7 SECONDS (11.7-14.9)
== END 2022-01-27 18:00 | disposition home or self-care (01) ==
LOC: MTLAB 08:06
PROVIDERS: Family Provider Internal Medicine; PCP Internal Medicine; Referring Provider Internal Medicine; Visit Provider Internal Medicine
DX: Z79.01 Long term (current) use of anticoagulants (principal)
CPT/HCPCS: 36415; 85610

== ENCOUNTER 2022-03-27 07:32 | Outpatient (RCR) | payer OTHER, SELFPAY ==
[2022-02-25 04:18] VITALS: BMI 45.6
[2022-03-27 10:20] LABS: International Normalized Ratio 2.3; Prothrombin Time (Protime)PT. 24.6 SECONDS (11.7-14.9)
== END 2022-03-27 18:00 | disposition home or self-care (01) ==
LOC: MTLAB 07:32
PROVIDERS: Family Provider Internal Medicine; PCP Internal Medicine; Referring Provider Internal Medicine; Visit Provider Internal Medicine
DX: Z79.01 Long term (current) use of anticoagulants (principal)
CPT/HCPCS: 36415; 85610

== ENCOUNTER 2022-05-02 15:56 | Outpatient (RCR) | payer OTHER, SELFPAY ==
[2022-03-28 10:24] VITALS: BMI 45.6
[2022-05-02 17:13] LABS: International Normalized Ratio 2.4
[2022-05-04 11:17] LABS: ALB/GLOB Ratio 0.9 RATIO (0.9-2.4); AST(SGOT) 13 U/L (15-37); Alanine Aminotransfer ALT/SGPT 27 U/L (13-56); Albumin, Serum 3.5 g/dL (3.2-5.0); Alkaline Phosphatase 121 U/L (45-117); Anion Gap 5 (5-15); BUN 11 mg/dL (7-18); BUN/Creat Ratio 10.3 RATIO (10-20); Calcium,Total 8.8 mg/dL (8.5-10.1); Chloride 104 mmol/L (98-107); Cholesterol 155 mg/dL (200); Creatinine, Serum 1.07 mg/dL (0.55-1.02); EST Glomerular Filtration Rate 57 mL/min (>60); Est Glom Filt Rate - Afr Amer 69 mL/min (>60); Globulin 3.8 g/dL (2.2-4.2); Glucose 81 mg/dL (74-106); High Density Lipoprotein 43 mg/dL; Potassium 3.6 mmol/L (3.5-5.1); Protein, Total 7.3 g/dL (6.4-8.2); Sodium Level 139 mmol/L (136-145); Thyroid Stim Hormone (TSH) 1.83 uIU/mL (0.358-3.74); Triglycerides 146 mg/dL; Very Low Density Lipoprotein 29 mg/dL (5-40)
== END 2022-05-27 23:59 ==
LOC: BIMLAB 15:56
PROVIDERS: Nurse Practitioner Family; Family Provider Internal Medicine; PCP Internal Medicine; Referring Provider Internal Medicine; Visit Provider Internal Medicine
DX: Z79.01 Long term (current) use of anticoagulants (principal)
CPT/HCPCS: 36415; 80053; 80061; 84443; 85610

== ENCOUNTER → 2022-05-08 | Outpatient (CLI) | payer OTHER, SELFPAY ==
--- NOTE | 2022-05-08 06:53 | RAD_ITS ---
STUDY: X-RAY CHEST REASON FOR EXAM: Female, 51 years old. DYSPNEA TECHNIQUE: PA and lateral views of the chest. COMPARISON: Comparison is made with prior study dated 10/30/2015. FINDINGS: Mild elevation of the right hemidiaphragm. There is no demonstrated pleural abnormality. Normal size heart. Normal mediastinum and christian. Normal visualized pulmonary arteries. Normal visualized aortic arch and descending thoracic aorta. There are diffuse degenerative changes of the visualized thoracic spine. Normal visualized ribs, clavicles, and shoulders. There is no demonstrated abnormality of the visualized soft tissue structures of the upper abdomen. RAD/Chest PA and Lateral IMPRESSION: No acute abnormality is seen. Electronically Signed: Nish Vargas MD at 8:36 EST ,
--- NOTE | 2022-05-10 13:31 | PFT ---
INTRODUCTION: The patient is a 51-year-old female that presents for pulmonary function studies secondary to a diagnosis of dyspnea. Respiratory therapy reported good patient effort. Bronchodilators were used during testing. INTERPRETATION: Forced expiration spirometry demonstrates no evidence of a large airways obstructive ventilatory defect. There was a significant response to aerosolized bronchodilators. Spirograms are of good quality and plateau normally. The respiratory flow volume loop is normal. Body plethysmography was performed and revealed a decreased TLC to 4.72 L, 83% of predicted, indicative of a mild restrictive ventilatory defect. Diffusing capacity by single breath CO was within normal limits. IMPRESSION: Mild restrictive ventilatory impairment with preserved diffusing capacity, likely secondary to body habitus. The patient did have a significant bronchodilator response noted.
== END | disposition home or self-care (01) ==
PROVIDERS: PCP Internal Medicine; Referring Provider Nurse Practitioner Family; Visit Provider Nurse Practitioner Family
DX: R06.00 Dyspnea, unspecified (principal); R93.89 Abnormal findings on diagnostic imaging of other specified body structures
CPT/HCPCS: 71046; 94060; 94726; 94729

== ENCOUNTER 2022-07-25 10:25 | Outpatient (RCR) | payer OTHER, SELFPAY ==
[2022-05-28 00:07] VITALS: BMI 45.6
[2022-07-25 10:35] LABS: Bacteria 0 SEEN /hpf (None Seen); Mucous, Urine 0 SEEN /hpf (<or=2+); White Blood Cells 0 SEEN /hpf (0-5)
[2022-07-25 11:09] LABS: Color, Urine Yellow (Yellow); Glucose, Dipstick Normal (Normal); Ketone-Dipstick Negative (Negative); Leukocyte Esterase-Dipstick Negative /ul (Negative); Nitrite-Dipstick Negative (Negative); Occult Blood-Urine 25 /ul (Negative); Protein-Dipstick Negative (Negative); Specific Gravity, Urine 1.015 (1.002-1.030); Urine Bilirubin Dipstick Negative (Negative); Urine Clarity Sl. Cloudy (Clear); Urine Urobilinogen Normal (Normal)
[2022-07-25 11:11] LABS: International Normalized Ratio 2.1; Prothrombin Time (Protime)PT. 23.2 SECONDS (11.7-14.9)
[2022-07-25 11:17] LABS: Red Blood Cells-Urine 0-5 SEEN /hpf (0-5); Squamous Epithelial Cells - UA 0-5 SEEN /hpf (5-10)
[2022-07-25 11:21] LABS: Hemoglobin A1c 5.7 % (3.8-5.6)
[2022-07-25 11:37] LABS: Anion Gap 3 (5-15); BUN 15 mg/dL (7-18); BUN/Creat Ratio 12.8 RATIO (10-20); Calcium,Total 9.4 mg/dL (8.5-10.1); Chloride 103 mmol/L (98-107); Creatinine, Serum 1.17 mg/dL (0.55-1.02); EST Glomerular Filtration Rate 52 mL/min (>60); Est Glom Filt Rate - Afr Amer 63 mL/min (>60); Glucose 93 mg/dL (74-106); Potassium 3.1 mmol/L (3.5-5.1); Sodium Level 138 mmol/L (136-145)
== END 2022-07-25 18:00 | disposition home or self-care (01) ==
LOC: LAB 10:25
PROVIDERS: Obstetrics & Gynecology; Family Provider Internal Medicine; PCP Internal Medicine; Referring Provider Internal Medicine; Visit Provider Internal Medicine
DX: Z79.01 Long term (current) use of anticoagulants (principal); N28.9 Disorder of kidney and ureter, unspecified; I10 Essential (primary) hypertension; E66.01 Morbid (severe) obesity due to excess calories
CPT/HCPCS: 36415; 80048; 81001; 83036; 85610

== ENCOUNTER → 2022-07-31 | Outpatient (CLI) | payer OTHER, SELFPAY ==
--- NOTE | 2022-07-31 06:57 | EKG12_ITS ---
Test Reason : ROUTINE Blood Pressure : / mmHG Vent. Rate : 077 BPM Atrial Rate : 077 BPM P-R Int : 168 ms QRS Dur : 084 ms QT Int : 384 ms P-R-T Axes : 077 070 063 degrees QTc Int : 434 ms Normal sinus rhythm Low voltage QRS Septal infarct , age undetermined , cannot be excluded Abnormal ECG Confirmed by WILFRIDO DONIS, SUSSY ([id number]), advertising editor CAROLINE DUNN ([id number]) on 08/01/2022 7:55:34 AM Referred By: LEE Confirmed By:SUSSY ANNA MD
== END | disposition home or self-care (01) ==
LOC: PSN 06:57
PROVIDERS: PCP Internal Medicine; Visit Provider Obstetrics & Gynecology
DX: N28.9 Disorder of kidney and ureter, unspecified (principal); E66.01 Morbid (severe) obesity due to excess calories; I10 Essential (primary) hypertension
CPT/HCPCS: 93005

== ENCOUNTER 2022-08-10 07:18 | Outpatient (RCR) | payer OTHER, SELFPAY | END 2022-08-25 23:59 | LOC: NS 07:18 | PROVIDERS: PCP Internal Medicine; Visit Provider Obstetrics & Gynecology | DX: Z71.3 Dietary counseling and surveillance (principal); E66.8 Other obesity; Z68.43 Body mass index [BMI] 50.0-59.9, adult; R73.03 Prediabetes; D64.9 Anemia, unspecified; G47.33 Obstructive sleep apnea (adult) (pediatric); I10 Essential (primary) hypertension; N28.9 Disorder of kidney and ureter, unspecified | CPT/HCPCS: 97802 ==

== ENCOUNTER → 2022-08-10 | Outpatient (CLI) | payer OTHER, SELFPAY ==
[2022-08-10 08:58] LABS: Anion Gap 7 (5-15); BUN 15 mg/dL (7-18); BUN/Creat Ratio 12.9 RATIO (10-20); Calcium,Total 9.1 mg/dL (8.5-10.1); Chloride 103 mmol/L (98-107); Creatinine, Serum 1.16 mg/dL (0.55-1.02); EST Glomerular Filtration Rate 52 mL/min (>60); Est Glom Filt Rate - Afr Amer 63 mL/min (>60); Glucose 133 mg/dL (74-106); Potassium 3.2 mmol/L (3.5-5.1); Sodium Level 139 mmol/L (136-145)
== END | disposition home or self-care (01) ==
LOC: LAB 07:09
PROVIDERS: PCP Internal Medicine; Referring Provider Nurse Practitioner Family; Visit Provider Nurse Practitioner Family
DX: E87.6 Hypokalemia (principal)
CPT/HCPCS: 36415; 80048

== ENCOUNTER 2022-08-17 11:51 | Outpatient (RCR) | payer OTHER, SELFPAY ==
[2022-07-25 23:00] VITALS: BMI 45.6
[2022-08-17 13:27] LABS: Anion Gap 7 (5-15); BUN 15 mg/dL (7-18); BUN/Creat Ratio 14.3 RATIO (10-20); Calcium,Total 9.5 mg/dL (8.5-10.1); Chloride 102 mmol/L (98-107); Creatinine, Serum 1.05 mg/dL (0.55-1.02); EST Glomerular Filtration Rate 59 mL/min (>60); Est Glom Filt Rate - Afr Amer 71 mL/min (>60); Glucose 94 mg/dL (74-106); Potassium 3.5 mmol/L (3.5-5.1); Sodium Level 138 mmol/L (136-145)
== END 2022-08-25 23:00 | disposition home or self-care (01) ==
LOC: LAB 11:51
PROVIDERS: Nurse Practitioner Family; Family Provider Internal Medicine; PCP Internal Medicine; Referring Provider Internal Medicine; Visit Provider Internal Medicine
DX: E87.6 Hypokalemia
CPT/HCPCS: 36415; 80048

== ENCOUNTER 2022-09-23 08:50 | Outpatient (RCR) | payer OTHER, SELFPAY ==
[2022-08-26 00:25] VITALS: BMI 45.6
[2022-09-15 16:47] LABS: Anion Gap 5 (5-15); BUN 11 mg/dL (7-18); Calcium,Total 9.4 mg/dL (8.5-10.1); Chloride 104 mmol/L (98-107); EST Glomerular Filtration Rate 55 mL/min (>60); Est Glom Filt Rate - Afr Amer 67 mL/min (>60); Glucose 85 mg/dL (74-106); Potassium 3.4 mmol/L (3.5-5.1); Sodium Level 137 mmol/L (136-145)
[2022-09-15 16:56] LABS: International Normalized Ratio 5.9
[2022-09-19 07:12] LABS: Absolute Lymphocyte Count 2.41 X10^3/uL (0.83-4.51); Basophil# 0.06 X10^3/uL; Eosinophil# 0.35 X10^3/uL; Eosinophils% 5.6 % (0-5); Hematocrit 40.8 % (37-47); Hemoglobin 12.8 g/dL (12.0-15.0); Lymphocyte # 2.41 X10^3/ul (0.83-4.51); Lymphocyte % 38.7 % (19-41); Mean Corp Hgb Conc 31.4 g/dL (32-36); Mean Corpuscular Hgb 26.9 pg (27.0-32.0); Mean Corpuscular Volume 85.7 fL (81-99); Mean Platelet Vol. 9.7 fl (6.2-12.0); Monocyte% 6.4 % (0-10); NRBC Flagged by Analyzer 0 % (0-5); Neutrophil # 2.99 X10^3/uL (2.7-7.7); Platelet Count 247 K/mm3 (150-450); RBC Distribution Width CV 14.5 % (11.6-14.6); RBC Distribution Width SD 45.2 fl (35.1-43.9); Red Blood Count 4.76 M/mm3 (4.2-5.4); White Blood Count 6.2 K/mm3 (4.4-11.0)
[2022-09-19 07:21] LABS: International Normalized Ratio 3.4; Prothrombin Time (Protime)PT. 34.1 SECONDS (11.7-14.9)
[2022-09-23 09:57] LABS: Prothrombin Time (Protime)PT. 48.7 SECONDS (11.7-14.9)
[2022-09-23 10:18] LABS: International Normalized Ratio 5.2
== END 2022-09-24 01:19 | disposition home or self-care (01) ==
LOC: LAB 08:50
PROVIDERS: Nurse Practitioner Family; Obstetrics & Gynecology; Family Provider Internal Medicine; PCP Internal Medicine; Referring Provider Internal Medicine; Visit Provider Internal Medicine
DX: E87.6 Hypokalemia (principal); E66.8 Other obesity; I10 Essential (primary) hypertension; F32.A Depression, unspecified; L65.9 Nonscarring hair loss, unspecified; R06.00 Dyspnea, unspecified
CPT/HCPCS: 36415; 80048; 85025; 85610

== ENCOUNTER 2022-10-19 05:53 | Outpatient (RCR) | payer OTHER, SELFPAY ==
[2022-09-24 01:19] VITALS: BMI 45.6
[2022-09-29 08:23] LABS: International Normalized Ratio 2.4; Prothrombin Time (Protime)PT. 26.2 SECONDS (11.7-14.9)
[2022-10-19 08:37] LABS: International Normalized Ratio 2.1; Prothrombin Time (Protime)PT. 23.7 SECONDS (11.7-14.9)
== END 2022-10-25 18:00 | disposition home or self-care (01) ==
LOC: LAB 05:53
PROVIDERS: Family Provider Internal Medicine; PCP Internal Medicine; Referring Provider Internal Medicine; Visit Provider Internal Medicine
DX: E87.6 Hypokalemia (principal); Z79.01 Long term (current) use of anticoagulants
CPT/HCPCS: 36415; 85610

== ENCOUNTER 2023-02-21 12:52 | Outpatient (RCR) | payer OTHER, SELFPAY ==
[2023-02-14 14:22] LABS: Red Blood Cells-Urine 0 SEEN /hpf (0-5)
[2023-02-14 15:16] LABS: Absolute Neutrophil Count 4.7 X10^3/uL (2.0-7.7); Basophil# 0.08 X10^3/uL; Eosinophil# 0.35 X10^3/uL; Eosinophils% 4.4 % (0-5); Hematocrit 42.2 % (37-47); Hemoglobin 13.4 g/dL (12.0-15.0); Mean Corp Hgb Conc 31.8 g/dL (32-36); Mean Corpuscular Hgb 28.2 pg (27.0-32.0); Mean Corpuscular Volume 88.7 fL (81-99); Mean Platelet Vol. 9.7 fl (6.2-12.0); Monocyte# 0.48 X10^3/uL; Monocyte% 6.1 % (0-10); NRBC Flagged by Analyzer 0 % (0-5); Neutrophil % 59.2 % (47-70); Platelet Count 298 K/mm3 (150-450); RBC Distribution Width CV 13.4 % (11.6-14.6); RBC Distribution Width SD 43.9 fl (35.1-43.9); Red Blood Count 4.76 M/mm3 (4.2-5.4); White Blood Count 7.9 K/mm3 (4.4-11.0)
[2023-02-14 15:18] LABS: Color, Urine Yellow (Yellow); Glucose, Dipstick Normal (Normal); Ketone-Dipstick 5 mg/dl (Negative); Leukocyte Esterase-Dipstick Negative /ul (Negative); Nitrite-Dipstick Negative (Negative); Occult Blood-Urine 10 /ul (Negative); Protein-Dipstick 15 mg/dl (Negative); Specific Gravity, Urine 1.025 (1.002-1.030); Urine Bilirubin Dipstick Negative (Negative); Urine Clarity Clear (Clear); Urine Urobilinogen Normal (Normal)
[2023-02-14 15:23] LABS: International Normalized Ratio 1.2; Prothrombin Time (Protime)PT. 15.7 SECONDS (11.7-14.9)
[2023-02-14 15:27] LABS: Bacteria 1+ /hpf (None Seen); Squamous Epithelial Cells - UA 0-5 SEEN /hpf (5-10)
[2023-02-14 15:28] LABS: Mucous, Urine 1+ /hpf (<or=2+); White Blood Cells 0-5 SEEN /hpf (0-5)
[2023-02-14 16:02] LABS: ALB/GLOB Ratio 0.9 RATIO (0.9-2.4); AST(SGOT) 17 U/L (15-37); Alanine Aminotransfer ALT/SGPT 29 U/L (13-56); Albumin, Serum 3.6 g/dL (3.2-5.0); Alkaline Phosphatase 145 U/L (45-117); Anion Gap 4 (5-15); BUN 18 mg/dL (7-18); BUN/Creat Ratio 17.1 RATIO (10-20); Calcium,Total 9.5 mg/dL (8.5-10.1); Chloride 106 mmol/L (98-107); Creatinine, Serum 1.05 mg/dL (0.55-1.02); EST Glomerular Filtration Rate 58 mL/min (>60); Est Glom Filt Rate - Afr Amer 71 mL/min (>60); Globulin 4.2 g/dL (2.2-4.2); Glucose 80 mg/dL (74-106); Potassium 3.5 mmol/L (3.5-5.1); Protein, Total 7.8 g/dL (6.4-8.2); Sodium Level 139 mmol/L (136-145)
[2023-02-21 15:16] LABS: International Normalized Ratio 1.6; Prothrombin Time (Protime)PT. 19.3 SECONDS (11.7-14.9)
== END 2023-02-21 18:00 | disposition home or self-care (01) ==
LOC: MTLAB 12:52
PROVIDERS: PCP Internal Medicine; Visit Provider Internal Medicine
DX: R10.2 Pelvic and perineal pain (principal); Z79.01 Long term (current) use of anticoagulants
CPT/HCPCS: 36415; 80053; 81001; 85025; 85610; 87086

== ENCOUNTER 2023-03-02 07:09 | Outpatient (CLI) | payer OTHER, SELFPAY ==
--- NOTE | 2023-03-02 07:10 | BI_ITS ---
MAMMOGRAPHY - BILATERAL SCREENING REASON FOR EXAM: Female, 52 years old. Routine annual screening examination. PERTINENT HISTORY: Non-contributory. TECHNIQUE: Digital bilateral breast dana (3D mammographic acquisition) in the CC and MLO projections. 2-D mediolateral oblique (MLO) and craniocaudad (CC) views of both breasts were obtained. CAD: Full Field Digital Mammography with Computer Added Detection was performed. COMPARISON: Comparison is made with prior study of October 12, 2021 and August 05, 2020. FINDINGS: Breast Composition: The breasts are almost entirely fatty. There are no dominant masses or suspicious calcifications. Stable benign-appearing bilateral axillary lymph nodes. No other significant abnormalities are identified. There has been no significant change since the prior study. BI/SCRN MAMM (CAD)W/DANA BILAT IMPRESSION: Stable bilateral screening mammogram. Yearly follow-up mammogram recommended. (A) ASSESSMENT CATEGORY: BIRADS Category 2: Benign. A letter regarding these results will be sent to the patient by the facility within 30 days. Approximately 10% of breast cancers are not detected by mammography. A normal mammogram should not delay biopsy of a clinically suspicious abnormality. [id number] Electronically Signed: Nish Vargas MD at 8:52 EDT ,
[2023-03-02 10:27] LABS: Prothrombin Time (Protime)PT. 22.7 SECONDS (11.7-14.9)
== END 2023-03-02 23:59 | disposition home or self-care (01) ==
PROVIDERS: PCP Internal Medicine; Referring Provider Internal Medicine; Visit Provider Internal Medicine
DX: Z12.31 Encounter for screening mammogram for malignant neoplasm of breast (principal); Z79.01 Long term (current) use of anticoagulants
CPT/HCPCS: 36415; 77063; 77067; 85610

== ENCOUNTER 2023-04-25 12:47 | Outpatient (RCR) | payer OTHER, SELFPAY ==
[2023-04-02 17:47] LABS: International Normalized Ratio 1.6; Prothrombin Time (Protime)PT. 19.5 SECONDS (11.7-14.9)
[2023-04-16 15:37] LABS: International Normalized Ratio 1.5; Prothrombin Time (Protime)PT. 18.2 SECONDS (11.7-14.9)
[2023-04-25 15:57] LABS: International Normalized Ratio 2.3; Prothrombin Time (Protime)PT. 25.2 SECONDS (11.7-14.9)
== END 2023-04-26 18:00 | disposition home or self-care (01) ==
LOC: MTLAB 12:47
PROVIDERS: PCP Internal Medicine; Referring Provider Internal Medicine; Visit Provider Internal Medicine
DX: R10.2 Pelvic and perineal pain (principal); Z79.01 Long term (current) use of anticoagulants
CPT/HCPCS: 36415; 85610

== ENCOUNTER 2023-05-16 16:48 | Outpatient (RCR) | payer OTHER, SELFPAY ==
[2023-05-07 15:27] LABS: Prothrombin Time (Protime)PT. 31.3 SECONDS (11.7-14.9)
[2023-05-16 17:51] LABS: International Normalized Ratio 3.6; Prothrombin Time (Protime)PT. 36.7 SECONDS (11.7-14.9)
== END 2023-05-27 18:00 | disposition home or self-care (01) ==
LOC: MTLAB 16:48
PROVIDERS: PCP Internal Medicine; Referring Provider Internal Medicine; Visit Provider Internal Medicine
DX: Z79.01 Long term (current) use of anticoagulants
CPT/HCPCS: 36415; 85610

== ENCOUNTER 2023-06-13 11:54 | Outpatient (RCR) | payer OTHER, SELFPAY ==
[2023-05-30 15:52] LABS: International Normalized Ratio 2.6; Prothrombin Time (Protime)PT. 28.1 SECONDS (11.7-14.9)
[2023-06-13 15:43] LABS: International Normalized Ratio 2.5; Prothrombin Time (Protime)PT. 27.6 SECONDS (11.7-14.9)
== END 2023-06-13 18:00 | disposition home or self-care (01) ==
LOC: MTLAB 11:54
PROVIDERS: PCP Internal Medicine; Referring Provider Internal Medicine; Visit Provider Internal Medicine
DX: Z86.718 Personal history of other venous thrombosis and embolism
CPT/HCPCS: 36415; 85610

== ENCOUNTER → 2023-10-27 | Outpatient (CLI) | payer OTHER, SELFPAY ==
[2023-10-27 09:04] LABS: Absolute Lymphocyte Count 1.87 X10^3/uL (0.83-4.51); Absolute Neutrophil Count 3.4 X10^3/uL (2.0-7.7); Basophil# 0.06 X10^3/uL; Eosinophil# 0.22 X10^3/uL; Eosinophils% 3.7 % (0-5); Hematocrit 40.2 % (37-47); Hemoglobin 12.9 g/dL (12.0-15.0); Lymphocyte # 1.87 X10^3/ul (0.83-4.51); Lymphocyte % 31.6 % (19-41); Mean Corp Hgb Conc 32.1 g/dL (32-36); Mean Corpuscular Hgb 26.9 pg (27.0-32.0); Mean Corpuscular Volume 83.8 fL (81-99); Mean Platelet Vol. 9.4 fl (6.2-12.0); Monocyte# 0.41 X10^3/uL; Monocyte% 6.9 % (0-10); NRBC Flagged by Analyzer 0 % (0-5); Neutrophil # 3.35 X10^3/uL (2.7-7.7); Neutrophil % 56.6 % (47-70); Platelet Count 253 K/mm3 (150-450); RBC Distribution Width CV 15.1 % (11.6-14.6); RBC Distribution Width SD 46.1 fl (35.1-43.9); White Blood Count 5.9 K/mm3 (4.4-11.0)
[2023-10-27 09:33] LABS: ALB/GLOB Ratio 0.9 RATIO (0.9-2.4); AST(SGOT) 16 U/L (15-37); Alanine Aminotransfer ALT/SGPT 23 U/L (13-56); Albumin, Serum 3.3 g/dL (3.2-5.0); Alkaline Phosphatase 121 U/L (45-117); Anion Gap 5 (5-15); BUN 16 mg/dL (7-18); BUN/Creat Ratio 16.4 RATIO (10-20); Calcium,Total 8.9 mg/dL (8.5-10.1); Chloride 105 mmol/L (98-107); Cholesterol 152 mg/dL (200); Creatinine, Serum 0.97 mg/dL (0.55-1.02); EST Glomerular Filtration Rate 64 mL/min (>60); Est Glom Filt Rate - Afr Amer 77 mL/min (>60); Globulin 3.8 g/dL (2.2-4.2); Glucose 118 mg/dL (74-106); High Density Lipoprotein 49 mg/dL; Potassium 3.1 mmol/L (3.5-5.1); Protein, Total 7.1 g/dL (6.4-8.2); Sodium Level 138 mmol/L (136-145); T4 Free Direct 0.86 ng/dL (0.76-1.46); Thyroid Stim Hormone (TSH) 1.82 uIU/mL (0.358-3.74); Triglycerides 94 mg/dL; Very Low Density Lipoprotein 19 mg/dL (5-40)
[2023-10-27 09:40] LABS: Hemoglobin A1c 5.5 % (3.8-5.6)
[2023-10-29 07:51] LABS: Vitamin D,25 Hydroxy 34.2 ng/mL
== END | disposition home or self-care (01) ==
LOC: LAB 08:37
PROVIDERS: PCP Internal Medicine; Referring Provider Nurse Practitioner Family; Visit Provider Nurse Practitioner Family
DX: E66.01 Morbid (severe) obesity due to excess calories (principal); Z68.42 Body mass index [BMI] 45.0-49.9, adult; I10 Essential (primary) hypertension; R73.03 Prediabetes
CPT/HCPCS: 80053; 80061; 82306; 83036; 84439; 84443; 85025

== ENCOUNTER → 2023-11-13 | Outpatient (CLI) | payer OTHER, SELFPAY | END | disposition home or self-care (01) | LOC: EMPH 08:01 | PROVIDERS: PCP Internal Medicine; Visit Provider Family Medicine Geriatric Medicine | DX: Z03.818 Encounter for observation for suspected exposure to other biological agents ruled out (principal) | CPT/HCPCS: 87811 ==

== ENCOUNTER → 2024-03-21 | Outpatient (CLI) | payer OTHER, SELFPAY ==
--- NOTE | 2024-03-21 07:34 | BI_ITS ---
MAMMOGRAPHY - BILATERAL SCREENING REASON FOR EXAM: Female, 53 years old. Routine annual screening examination. PERTINENT HISTORY: Non-contributory. TECHNIQUE: Digital bilateral breast dana (3D mammographic acquisition) in the CC and MLO projections. 2-D mediolateral oblique (MLO) and craniocaudad (CC) views of both breasts were obtained. CAD: Full Field Digital Mammography with Computer Added Detection was performed. COMPARISON: Comparison is made with prior study March 02, 2023 and October 12, 2021. FINDINGS: Breast Composition: The breasts are almost entirely fatty. There are no dominant masses or suspicious calcifications. Stable bilateral fat containing axillary lymph nodes. No other significant abnormalities are identified. There has been no significant change since the prior study. BI/SCRN MAMM (CAD)W/DANA BILAT IMPRESSION: Stable bilateral screening mammogram. Yearly follow-up mammogram recommended. (A) ASSESSMENT CATEGORY: BIRADS Category 2: Benign. A letter regarding these results will be sent to the patient by the facility within 30 days. Approximately 10% of breast cancers are not detected by mammography. A normal mammogram should not delay biopsy of a clinically suspicious abnormality. [id number] Electronically Signed: Nish Vargas MD at 8:28 EDT ,
--- OUTSIDE RECORDS SUMMARY | 2024-03-21 07:34 | XMS RPT_ITS | CCD ---
Author Organization [facility] Providers Care Bean Picker Name Role Phone Valencia Enriquez MD Primary Care Provider [phone] Mariposa Kirby MD Unavailable Norah Lockett MD Primary Care Provider NORAH LOCKETT Primary Care Unavailable NORAH LOCKETT Primary Care Unavailable SHAUN KRAFT Referring Unavailable Valencia Enriquze MD Primary Care Provider [phone] Mariposa Kirby MD Unavailable Medications Current Medications Medication Drug Class(es) Dates Sig (Normalized) Sig (Original) [id number] 200 actuat albuterol 0.09 mg/actuat metered dose inhaler (7 sources) beta2-Adrenergic Agonist Start: 09-26-2021 take 2 puff(s) by inhalation every four hours as needed albuterol HFA (VENTOLIN HFA) 90 mcg/actuation inhaler Indications: Sinobronchitis Inhale 2 Puffs as instructed every 4 hours as needed. 18 g 09/26/2021 Active Start: 03-01-2018 End: 09-26-2021 take 2 puff(s) by inhalation every four hours as needed albuterol HFA (PROAIR HFA) 90 mcg/actuation inhaler Indications: Sinobronchitis Inhale 2 Puffs as instructed every 4 hours as needed. 1 Inhaler 0 03/01/2018 09/26/2021 Discontinued Comment on above: Inhale 2 Puffs as in structed every 4 hours as needed. amoxicillin 875 mg / clavulanate 125 mg oral tablet (1 source) Penicillin-class Antibacterial Start : 09-26 End: 10-03 take 1 tablet by mouth twice daily amoxicillin-clavulanic acid (AUGMENTIN) 875-125 mg per tablet Indications: Sinobronchitis Take 1 tablet by mouth twice daily for 7 days. 14 tablet 0 09/26/2021 10/03/2021 Active Comment on above: Take 1 tablet by jayy twice daily for 7 days. 24 hr buPROPion hydrochloride 300 mg extended release oral tablet (6 sources) Aminoketone Start : 10-14 take 1 tablet by mouth once daily buPROPion XL (WELLBUTRIN XL) 300 mg 24 hr tablet Indications: Adjustment disorder with depressed mood Take 1 tablet by mouth once daily. 30 tablet 5 10/14/2018 Active Comment on above: Take 1 tablet by jayy once daily. cholecalciferol 0.05 mg oral capsule (6 sources) Vitamin D Start : 06-21 take 1 capsule by mouth once daily Cholecalciferol, Vitamin D3, 2,000 unit cap Indications: Vitamin D deficiency Take 1 capsule by mouth once daily. 90 capsule 1 06/21/2018 Active Comment on above: Take 1 capsule by [facility] once daily. COMPOUNDED PRESCRIPTION (6 sources) Start : 08-02 COMPOUNDED PRESCRIPTION Indications: GILLIAN (obstructive sleep apnea) AutoPAP 5-15 cmH2O with humidification. Assoc dx: GILLIAN G47.33 1 Each 08/02/2016 Active Comment on above: AutoPAP 5-15 cmH2O w ith humidification. Assoc dx: GILLIAN G47.33 cyclobenzaprine hydrochloride 10 mg oral tablet (6 sources) Muscle Relaxant Start : 03-22 take 1 tablet by mouth every eight hours as needed cyclobenzaprine (FLEXERIL) 10 mg tablet Take 1 tablet by mouth three times daily as needed for muscle spasm. 15 tablet 03/22/2021 Active Comment on above: Take 1 tablet by jayy three times daily as needed for muscle spasm. hydroCHLOROthiazide 25 mg oral tablet (6 sources) Thiazide Diuretic Start : 07-01 take 1 tablet by mouth once daily hydroCHLOROthiazide (HYDRODIURIL, ESIDRIX) 25 mg tablet Take 1 tablet by mouth once daily. 90 tablet 3 07/01/2018 Active Comment on above: Take 1 tablet by jayy once daily. losartan potassium 50 mg oral tablet (6 sources) Angiotensin 2 Receptor Fernando Start : 07-01 take 1 tablet by mouth once daily losartan (COZAAR) 50 mg tablet Take 1 tablet by mouth once daily. 90 tablet 3 07/01/2018 Active Comment on above: Take 1 tablet by [facility] once daily. microencapsulated potassium chloride 20 meq extended release oral tablet (6 sources) Start : 06-14 take 1 tablet by mouth twice daily potassium chloride ER (KLOR-CON M20) 20 mEq tablet Take 1 tablet by mouth twice daily. 60 tablet 11 06/14/2018 Active Comment on above: [facility] predniSONE 20 mg oral tablet (1 source) Start : 09-26 End: 09-30 take 2 tablets by mouth once daily at mealtime predniSONE (DELTASONE) 20 mg tablet Indications: Sinobronchitis Take 2 tablets by mouth once daily for 4 days. Take daily with food. 8 tablet 0 09/26/2021 09/30/2021 Active Comment on above: Take 2 tablets by [facility] once daily for 4 days. Take daily with food. warfarin sodium 5 mg oral tablet (18 sources) Vitamin K Antagonist Start : 04-01 warfarin (COUMADIN) 5 mg tablet 10 mg Mon/Wed/Fri and 7.5 mg all other days or as directed 60 tablet 11 04/01/2018 Active Comment on above: 10 mg Mon/Wed/Fri an d 7.5 mg all other days or as directed Completed/Discontinued Medications Medication Drug Class(es) Dates Sig (Normalized) Sig (Original) brompheniramine maleate 0.4 mg/ml / dextromethorphan hydrobromide 2 mg/ml / pseudoephedrine hydrochloride 6 mg/ml oral solution (2 sources) alpha-Adrenergic Agonist, Uncompetitive C-qrucdu-O-aspartat e Receptor Antagonist, Sigma-1 Agonist Start: 03-09-2018 End: 12-07-2021 take 5 mL by mouth every six hours as needed Brompheniramine-P seudoeph-DM (BROMFED DM) 2-30-10 mg/5 mL syrup Take 5 mL by mouth four times daily as needed. 140 mL 0 03/09/2018 12/07/2021 Discontinued Comment on above: Take 5 mL by mouth f our times daily as needed. Problems Active Problems Problem Classification Problem Date Documented Da te Episodic/Chronic Adjustment disorders (6 sources) Adjustment disorder with depressed mood; Translations: [Adjustment disorder with depressed mood] Onset: 08-06-2008 08-06-2008 Chronic Essential hypertension (6 sources) Benign essential hypertension; Translations: [Essential (primary) hypertension] Onset: 04-08-2009 04-08-2009 Chronic Nutritional deficiencies (6 sources) Vitamin D deficiency; Translations: [Vitamin D deficiency, unspecified] Onset: 03-24-2014 03-24-2014 Chronic Other connective tissue disease (2 sources) Pain in right lower limb; Translations: [Pain in right leg] 09-20-2023 Episodic Other connective tissue disease (1 source) Pain in right leg; Translations: [Right leg pain] Onset: 09-20-2023 Episodic Other gastrointestinal disorders (6 sources) Occult blood in stools; Translations: [Other fecal abnormalities] 07-02-2014 Episodic Other non-traumatic joint disorders (2 sources) Acute ankle pain; Translations: [Pain in right ankle and joints of right foot] Episodic Other nutritional; endocrine; and metabolic disorders (6 sources) Body mass index 40+ - severely obese; Translations: [Morbid (severe) obesity due to excess calories] Onset: 02-17-2010 10-24-2017 Chronic Other upper respiratory infections (1 source) Chronic sinusitis; Translations: [Chronic sinusitis, unspecified] Chronic Residual codes; unclassified (6 sources) Obstructive sleep apnea syndrome; Translations: [Obstructive sleep apnea (adult) (pediatric)] Onset: 11-10-2016 11-10-2016 Chronic Past or Other Problems Problem Classification Problem Date Documented Da te Episodic/Chronic Deficiency and other anemia (4 sources) Iron deficiency anemia; Translations: [Iron deficiency anemia, unspecified] Onset: 03-24-2014 Resolved: 09-28-2017 09-28-2017 Episodic Diabetes mellitus without complication (6 sources) Steroid-induced hyperglycemia; Translations: [Hyperglycemia, unspecified] Onset: 11-10-2016 11-10-2016 Episodic Genitourinary symptoms and ill-defined conditions (6 sources) Blood in urine; Translations: [Hematuria, unspecified] Onset: 08-10-2014 08-10-2014 Episodic Menstrual disorders (4 sources) Menometrorrhagia; Translations: [Excessive and frequent menstruation with irregular cycle] Onset: 03-11-2015 Resolved: 07-12-2016 07-12-2016 Chronic Other aftercare (7 sources) Long-term current use of anticoagulant; Translations: [watermelon inspector (current) use of anticoagulants] Onset: 12-11-2013 12-11-2013 Episodic Other and unspecified benign neoplasm (6 sources) Melanocytic nevus of skin ; Translations: [Melanocytic nevi, unspecified] Onset: 07-13-2014 05-23-2021 Episodic Other connective tissue disease (6 sources) Calcaneal spur; Translations: [Calcaneal spur, unspecified foot] Onset: 05-17-2010 05-17-2010 Episodic Phlebitis; thrombophlebitis and thromboembolism (18 sources) Deep venous thrombosis of left lower extremity; Translations: [Acute embolism and thrombosis of unspecified deep veins of left lower extremity] Onset: 03-02-2011 03-02-2011 Episodic Results Test Name Value Interpretation Reference Range Facility [facility] 09-20-2023 CNOV Office Visit (UCWSTR ) -------- EHNRI,ZUNILDA Cooley ([id number]) 1970 F Date Time Provider Department 09/20/23 1:30 PM SHAUN KRAFT [facility] During your visit today, we recorded the following information about you: Temperature Pulse Respiration Blood pressure 97.5 degrees 104/minute 16/minute 136/80 Weight 138.2 kg Shaun Kraft APRN.CNP 09/20/2023 1:53 PM Signed This note was created using NoteWriter. Subjective Zunilda Cooley Henri is a 53 year old female. 53 year old female with PMH HTN, GILLIAN, adjustment disorder, obesity and chronic anticoagulation presents for concerns for DVT. Acute onset of symptoms was 2 weeks ago Right lower leg +pain +cramping Denies known trauma or injury Denies numbness or tingling Denies CP. 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 INR was 2.4 approximately 2 weeks ago Her coumadin dosage is 7.5 mg 4 days of the week 10 mg 3 days of the week The history is provided by the patient. No proposal specialist was used. Musculoskeletal Problem This is a new problem. The current episode started 1 to 4 weeks ago. The problem occurs constantly. The problem has been gradually worsening. Pertinent negatives include no abdominal pain, anorexia, arthralgias, change in bowel habit, chest pain, chills, congestion, coughing, diaphoresis, fatigue, fever, headaches, joint swelling, myalgias, nausea, neck pain, numbness, rash, sore throat, swollen glands, urinary symptoms, vertigo, visual change, vomiting or weakness. Nothing aggravates the symptoms. She has tried nothing for the symptoms. The treatment provided no relief. PAST MEDICAL HISTORY Diagnosis Date Hypertension KERVIN (iron deficiency anemia) 03/24/2014 Left leg DVT (HCC) 02/27/2011 x1 (2010), s/p left foot surgery; x2 (2011) Pneumonia Positive occult stool blood test Snoring PAST SURGICAL HISTORY Procedure Laterality Date CHOLECYSTECTOMY 2000 laparoscopic COLONOSCOPY FLX DX W/COLLJ SPEC WHEN PFRMD 08/03/2014 Colonoscopy ESOPHAGOGASTRODUODENOSCO PY TRANSORAL DIAGNOSTIC 08/03/2014 EGD HYSTERECTOMY HX 09/2015 HYSTEROSCOPY BX W/WO DANDC 04/06/15 INSERT INTRAUTERINE DEVICE 04/06/15 Mirena Insertion LIG/TRNSXJ FLP TUBE ABDL/VAG APPR UNI/BI 2006 PAST SURGICAL HISTORY OF Heel spur-left ALLERGIES Patient has no known allergies. MEDICATIONS albuterol HFA (VENTOLIN HFA) 90 mcg/actuation inhaler Inhale 2 Puffs as instructed every 4 hours as needed. cyclobenzaprine (FLEXERIL) 10 mg tablet Take 1 tablet by mouth three times daily as needed for muscle spasm. buPROPion XL (WELLBUTRIN XL) 300 mg 24 hr tablet Take 1 tablet by mouth once daily. hydroCHLOROthiazide (HYDRODIURIL, ESIDRIX) 25 mg tablet Take 1 tablet by mouth once daily. losartan (COZAAR) 50 mg tablet Take 1 tablet by mouth once daily. Cholecalciferol, Vitamin D3, 2,000 unit cap Take 1 capsule by mouth once daily. potassium chloride ER (KLOR-CON M20) 20 mEq tablet Take 1 tablet by mouth twice daily. warfarin (COUMADIN) 5 mg tablet 10 mg Mon/Wed/Fri and 7.5 mg all other days or as directed warfarin (COUMADIN) 5 mg tablet 10 mg Mon/Wed/Fri and 7.5 mg all other days or as directed warfarin (COUMADIN) 5 mg tablet 10 mg Mon/Wed/Fri and 7.5 mg all other days or as directed COMPOUNDED PRESCRIPTION AutoPAP 5-15 cmH2O with humidification. Assoc dx: GILLIAN G47.33 FAMILY HISTORY Problem Relation Age of Onset Hypertension Mother Cancer Father lung bone bladder Ischemic Heart Disease Maternal Grandmother Social History Tobacco Use Smoking status: Never Smokeless tobacco: Never Substance Use Topics Alcohol use: Yes Comment: very occasional Drug use: No Review of Systems Constitutional: Negative for chills, diaphoresis, fatigue and fever. HENT: Negative for congestion and sore throat. Eyes: Negative for photophobia, pain, discharge and itching. Respiratory: Negative for apnea, cough and chest tightness. Cardiovascular: Negative for chest pain. Gastrointestinal: Negative for abdominal pain, anorexia, change in bowel habit, nausea and vomiting. Musculoskeletal: Negative for arthralgias, joint swelling, myalgias and neck pain. Leg Pain Skin: Negative for rash. Allergic/Immunologic: Negative for environmental allergies, food allergies and immunocompromised state. Neurological: Negative for vertigo, weakness, numbness and headaches. Hematological: Negative for adenopathy. Does not bruise/bleed easily. Psychiatric/Behavioral: Negative for agitation and behavioral problems. Objective BP 136/80 Pulse 104 Temp 36.4 ?C (97.5 ?F) Resp 16 Wt (!) 138.2 kg (304 lb 10.8 oz) LMP 09/03/2015 (Approximate) SpO2 97% BMI 46.33 kg/m? Physical Exam Vitals and nursi (more content not included)... Normal [facility] Rosalind 09-20-2023 APRIL Telephone (UCWSTR) -------- ZUNILDA ÁLVAREZ ([id number]) 1970 F Date Time Provider Department 09/20/23 SHAUN KRAFT [facility] During your visit today, we recorded the following information about you: Shaun Kraft APRN.MOLDER FEEDER 09/20/2023 4:45 PM Signed US DVT negative. Patient notified. Will follow up with PCP related to Coumadin. Allergies As of Date: 09/20/2023 (No Known Allergies) Date Reviewed: 09/20/2023 Reviewed by: Eliane Bernal - Fully Assessed Reason for Visit: Results [95] Prescriptions as of 09/20/2023 - albuterol HFA (VENTOLIN HFA) 90 mcg/actuation inhaler Inhale 2 Puffs as instructed every 4 hours as needed. - cyclobenzaprine (FLEXERIL) 10 mg tablet Take 1 tablet by mouth three times daily as needed for muscle spasm. - buPROPion XL (WELLBUTRIN XL) 300 mg 24 hr tablet Take 1 tablet by mouth once daily. - hydroCHLOROthiazide (HYDRODIURIL, ESIDRIX) 25 mg tablet Take 1 tablet by mouth once daily. - losartan (COZAAR) 50 mg tablet Take 1 tablet by mouth once daily. - Cholecalciferol, Vitamin D3, 2,000 unit cap Take 1 capsule by mouth once daily. - potassium chloride ER (KLOR-CON M20) 20 mEq tablet Take 1 tablet by mouth twice daily. - warfarin (COUMADIN) 5 mg tablet 10 mg Mon/Wed/Fri and 7.5 mg all other days or as directed - warfarin (COUMADIN) 5 mg tablet 10 mg Mon/Wed/Fri and 7.5 mg all other days or as directed - warfarin (COUMADIN) 5 mg tablet 10 mg Mon/Wed/Fri and 7.5 mg all other days or as directed - COMPOUNDED PRESCRIPTION AutoPAP 5-15 cmH2O with humidification. Assoc dx: GILLIAN G47.33 Meds Comments as of 12/03/2015: No longer taking stool softener 12/03/15 nicole Salinas told her to continue coumadin througn procedure. INR to be drawn 07/30/14. Problem List As Of Date 09/20/2023 Noted Resolved ADJUSTMENT DISORDER WITH DEPRESSED MOOD [F43.21]08/06/2008 Essential Hypertension, Benign [I10] 04/08/2009 Obesity, Class III, BMI 40-49.9 (morbid obesity*02/17/2010 Calcaneal spur [M77.30] 05/17/2010 Left leg DVT [I82.402] 03/02/2011 watermelon inspector (current) use of anticoagulants [Z79.*12/11/2013 KERVIN (iron deficiency anemia) [D50.9] 03/24/2014 09/28/2017 Vitamin D deficiency [E55.9] 03/24/2014 Positive occult stool blood test [R19.5] Benign pigmented mole [D22.9] 07/13/2014 Hematuria [R31.9] 08/10/2014 Menorrhagia with irregular cycle [N92.1] 03/11/2015 07/12/2016 History of DVT (deep vein thrombosis) [Z86.718] 11/05/2015 Deep vein thrombosis (DVT) of left lower extrem*09/29/2016 Steroid-induced hyperglycemia [R73.9, T38.0X5A] 11/10/2016 Obstructive sleep apnea [G47.33] 11/10/2016 Encounter Status:Closed by SHAUN KRAFT on 09/20/23 [facility] US DVT LOWER RTon 09-20-2023 US DVT LOWER RT * * *Final Report* * * DATE OF EXAM: Sep 20 2023 4:23PM LDU 1007 - US DVT LOWER RT / PROCEDURE REASON: Right leg pain * * * * Physician Interpretation * * * * EXAMINATION: RIGHT LOWER EXTREMITY DEEP VENOUS ULTRASOUND WITH DOPPLER IMAGING CLINICAL HISTORY: Leg pain or tenderness. TECHNIQUE: Grayscale with compression maneuvers, color Doppler and spectral Doppler imaging of the right proximal deep veins was performed. Grayscale with compression maneuvers of the peroneal and posterior tibial veins was performed. The right great and small saphenous veins were evaluated at their insertion to the deep system. The contralateral common femoral vein was imaged for comparison. Images were obtained and stored in a permanent archive. MQ: USLER_1 COMPARISON: None RESULT: RIGHT LOWER EXTREMITY PROXIMAL DEEP VEINS Distal External Iliac, Common Femoral and proximal Profunda Veins: Compression: Normal Doppler: Normal, spontaneous respirophasic flow. Normal response to augmentation. Femoral vein: Compression: Normal Doppler: Normal, spontaneous flow. Normal response to augmentation. Popliteal vein: Compression: Normal Doppler: Normal, spontaneous flow. Normal response to augmentation. CALF DEEP VEINS Peroneal veins: Normal compression. Posterior tibial veins: Normal compression. Gastrocnemius and Soleal veins: Not imaged. SUPERFICIAL VEINS Great saphenous: Patent and compressible at insertion into common femoral vein; not otherwise assessed. Small Saphenous: Patent and compressible in the proximal calf, not otherwise assessed. LEFT LOWER EXTREMITY (FOR COMPARISON) Common Femoral Vein: Compression: Normal Doppler: Normal, spontaneous respirophasic flow. Normal response to augmentation. IMPRESSION: Negative study for proximal DVT in the right lower extremity. Negative study for calf DVT in the right lower extremity. Negative study for superficial thrombophlebitis in the imaged segments of the right lower extremity. Food Checker: [facility] Transcribe Date/Time: Sep 20 2023 4:24P Dictated by : BLAKE AMOR MD This examination was interpreted and the report reviewed and electronically signed by: BLAKE AMOR MD on Sep 20 2023 4:25PM EST [id number] Normal [facility] US Lower extremity vein - [facility] 09-20-2023 IMPRESSION: Negative study for proximal DVT in the right lower extremity. Negative study for calf DVT in the right lower extremity. Negative study for superficial thrombophlebitis in the imaged segments of the right lower extremity. Food Checker: [facility] Transcribe Date/Time: Sep 20 2023 4:24P Dictated by : BLAKE AMOR MD This examination was interpreted and the report reviewed and electronically signed by: BLAKE AMOR MD on Sep 20 2023 4:25PM EST [facility] * * *Final Report* * * DATE OF EXAM: Sep 20 2023 4:23PM LDU 1007 - US DVT LOWER RT / PROCEDURE REASON: Right leg pain * * * * Physician Interpretation * * * * EXAMINATION: RIGHT LOWER EXTREMITY DEEP VENOUS ULTRASOUND WITH DOPPLER IMAGING CLINICAL HISTORY: Leg pain or tenderness. TECHNIQUE: Grayscale with compression maneuvers, color Doppler and spectral Doppler imaging of the right proximal deep veins was performed. Grayscale with compression maneuvers of the peroneal and posterior tibial veins was performed. The right great and small saphenous veins were evaluated at their insertion to the deep system. The contralateral common femoral vein was imaged for comparison. Images were obtained and stored in a permanent archive. MQ: USLER_1 COMPARISON: None RESULT: RIGHT LOWER EXTREMITY PROXIMAL DEEP VEINS Distal External Iliac, Common Femoral and proximal Profunda Veins: Compression: Normal Doppler: Normal, spontaneous respirophasic flow. Normal response to augmentation. Femoral vein: Compression: Normal Doppler: Normal, spontaneous flow. Normal response to augmentation. Popliteal vein: Compression: Normal Doppler: Normal, spontaneous flow. Normal response to augmentation. CALF DEEP VEINS Peroneal veins: Normal compression. Posterior tibial veins: Normal compression. Gastrocnemius and Soleal veins: Not imaged. SUPERFICIAL VEINS Great saphenous: Patent and compressible at insertion into common femoral vein; not otherwise assessed. Small Saphenous: Patent and compressible in the proximal calf, not otherwise assessed. LEFT LOWER EXTREMITY (FOR COMPARISON) Common Femoral Vein: Compression: Normal Doppler: Normal, spontaneous respirophasic flow. Normal response to augmentation. [facility] Provider, [facility] - 09/20/2023 * * *Final Report* * * DATE OF EXAM: Sep 20 2023 4:23PM LDU 1007 - US DVT LOWER RT / PROCEDURE REASON: Right leg pain * * * * Physician Interpretation * * * * EXAMINATION: RIGHT LOWER EXTREMITY DEEP VENOUS ULTRASOUND WITH DOPPLER IMAGING CLINICAL HISTORY: Leg pain or tenderness. TECHNIQUE: Grayscale with compression maneuvers, color Doppler and spectral Doppler imaging of the right proximal deep veins was performed. Grayscale with compression maneuvers of the peroneal and posterior tibial veins was performed. The right great and small saphenous veins were evaluated at their insertion to the deep system. The contralateral common femoral vein was imaged for comparison. Images were obtained and stored in a permanent archive. MQ: USLER_1 COMPARISON: None RESULT: RIGHT LOWER EXTREMITY PROXIMAL DEEP VEINS Distal External Iliac, Common Femoral and proximal Profunda Veins: Compression: Normal Doppler: Normal, spontaneous respirophasic flow. Normal response to augmentation. Femoral vein: Compression: Normal Doppler: Normal, spontaneous flow. Normal response to augmentation. Popliteal vein: Compression: Normal Doppler: Normal, spontaneous flow. Normal response to augmentation. CALF DEEP VEINS Peroneal veins: Normal compression. Posterior tibial veins: Normal compression. Gastrocnemius and Soleal veins: Not imaged. SUPERFICIAL VEINS Great saphenous: Patent and compressible at insertion into common femoral vein; not otherwise assessed. Small Saphenous: Patent and compressible in the proximal calf, not otherwise assessed. LEFT LOWER EXTREMITY (FOR COMPARISON) Common Femoral Vein: Compression: Normal Doppler: Normal, spontaneous respirophasic flow. Normal response to augmentation. IMPRESSION IMPRESSION: Negative study for proximal DVT in the right lower extremity. Negative study for calf DVT in the right lower extremity. Negative study for superficial thrombophlebitis in the imaged segments of the right lower extremity. Food Checker: [facility] Transcribe Date/Time: Sep 20 2023 4:24P Dictated by : BLAKE AMOR MD This examination was interpreted and the report reviewed and electronically signed by: BLAKE AMOR MD on Sep 20 2023 4:25PM EST [facility] Radiology Study observation (narrative) [facility] US Lower extremity vein - ri ghtOrdered By: [facility] Provider on 09-20-2023 [facility] XR ANKLE GENERAL 3V AP/LAT/O BL RIGHTon 12-07-2021 [facility] XR Ankle - right AP and Late ral and obliqueon 12-07-2021 IMPRESSION: No acute osseous abnormality. Food Checker: [facility] Transcribe Date/Time: Dec 07 2021 6:28P Dictated by : HAWA SEGURA MD This examination was interpreted and the report reviewed and electronically signed by: HAWA SEGURA MD on Dec 07 2021 6:29PM EST [email or web address] E_DIVISION OF RADIOLOGY * * *Final Report* * * DATE OF EXAM: Dec 07 2021 6:26PM [id number] - XR ANKLE 3V AP/LAT/OBL RT / PROCEDURE REASON: Acute right ankle pain * * * * Physician Interpretation * * * * PROCEDURE: Right ankle INDICATION: Acute right ankle pain .pt fell down steps and injured right ankle TECHNIQUE: XR ANKLE 3V AP/LAT/OBL RT COMPARISON: None FINDINGS: No acute fracture or dislocation. Ankle mortise is symmetric. Small ossicle or remote fracture fragment adjacent to the medial malleolus. Calcaneal spurs. Soft tissue swelling. [id number] E_DIVISION OF RADIOLOGY Provider, John Early - 12/07/2021 * * *Final Report* * * DATE OF EXAM: Dec 07 2021 6:26PM WOX [id number] - XR ANKLE 3V AP/LAT/OBL RT / PROCEDURE REASON: Acute right ankle pain * * * * Physician Interpretation * * * * PROCEDURE: Right ankle INDICATION: Acute right ankle pain .pt fell down steps and injured right ankle TECHNIQUE: XR ANKLE 3V AP/LAT/OBL RT COMPARISON: None FINDINGS: No acute fracture or dislocation. Ankle mortise is symmetric. Small ossicle or remote fracture fragment adjacent to the medial malleolus. Calcaneal spurs. Soft tissue swelling. IMPRESSION IMPRESSION: No acute osseous abnormality. Food Checker: PSCB Transcribe Date/Time: Dec 07 2021 6:28P Dictated by : HAWA SEGURA MD This examination was interpreted and the report reviewed and electronically signed by: HAWA SEGURA MD on Dec 07 2021 6:29PM EST [facility] Radiology Study observation (narrative) [facility] XR Ankle - right AP and Late ral and obliqueOrdered By: Ccf Provider on 12-07-2021 [facility] Vital Signs Date Time Vital Sign Value Performing Clinician Faci jay jay 09-20-2023 13:30-0400 Body mass index (BMI) [Ratio] 46.33 kg/m2 Shaun Kraft LAST CODE STRIPER.MOLDER FEEDER Work Phone: [facility] 09-20-2023 13:30-0400 Body temperature 97.5 [degF] Shaun Kraft LAST CODE STRIPER.MOLDER FEEDER Work Phone: [facility] 09-20-2023 13:30-0400 Body weight 138.2 kg Shaun Kraft LAST CODE STRIPER.MOLDER FEEDER Work Phone: [facility] 09-20-2023 13:30-0400 Diastolic blood pressure 80 mm[Hg] Shaun Kraft LAST CODE STRIPER.MOLDER FEEDER Work Phone: [facility] 09-20-2023 13:30-0400 Heart rate 104 /min Shaun Kraft LAST CODE STRIPER.MOLDER FEEDER Work Phone: [facility] 09-20-2023 13:30-0400 Respiratory rate 16 /min Shaun Kraft LAST CODE STRIPER.MOLDER FEEDER Work Phone: [facility] 09-20-2023 13:30-0400 SaO2% (BldA) [Mass fraction] 97 % Shaun Kraft LAST CODE STRIPER.MOLDER FEEDER Work Phone: [facility] 09-20-2023 13:30-0400 Systolic blood pressure 136 mm[Hg] Shaun Kraft LAST CODE STRIPER.MOLDER FEEDER Work Phone: [facility] 12-07-2021 17:42-0400 Body temperature 98.4 [degF] Shilo Henriquez MD Work Phone: [facility] 12-07-2021 17:42-0400 Body weight 144.79 kg Shilo Henriquez MD Work Phone: [facility] 12-07-2021 17:42-0400 Diastolic blood pressure 82 mm[Hg] Shilo Henriquez MD Work Phone: [facility] 12-07-2021 17:42-0400 Heart rate 87 /min Shilo Henriquez MD Work Phone: [facility] 12-07-2021 17:42-0400 Respiratory rate 18 /min Shilo Henriquez MD Work Phone: [facility] 12-07-2021 17:42-0400 SaO2% (BldA) [Mass fraction] 99 % Shilo Henriquez MD Work Phone: [facility] 12-07-2021 17:42-0400 Systolic blood pressure 124 mm[Hg] Shilo Henriquez MD Work Phone: [facility] 09-26-2021 17:49-0400 Body temperature 98.29 [degF] Azra Joe LAST CODE STRIPER.MOLDER FEEDER Work Phone: [facility] 09-26-2021 17:49-0400 Body weight 143.43 kg Azra Joe LAST CODE STRIPER.MOLDER FEEDER Work Phone: [facility] 09-26-2021 17:49-0400 Diastolic blood pressure 80 mm[Hg] Azra Joe LAST CODE STRIPER.MOLDER FEEDER Work Phone: [facility] 09-26-2021 17:49-0400 Heart rate 77 /min Azra Joe LAST CODE STRIPER.MOLDER FEEDER Work Phone: [facility] 09-26-2021 17:49-0400 Respiratory rate 20 /min Azraescobar Joe LAST CODE STRIPER.MOLDER FEEDER Work Phone: [facility] 09-26-2021 17:49-0400 SaO2% (BldA) [Mass fraction] 98 % Azra Joe LAST CODE STRIPER.MOLDER FEEDER Work Phone: [facility] 09-26-2021 17:49-0400 Systolic blood pressure 122 mm[Hg] Azra Emery-Nicholas LAST CODE STRIPER.MOLDER FEEDER Work Phone: [facility] Encounters Encounter Date Encounter Type Care Provider Facility [facility]: [facility] Start: 09-20-2023 End: 09-20-2023 Subsequent hospital visit by physician [facility] Comment on above: Right leg pain [M79. 604] Start: 09-20-2023 End: 09-20-2023 ambulatory NORAH Stefan LOCKETT Facility:[facility] Start: 09-20-2023 Telephone encounter Shaun martin LAST CODE STRIPER.MOLDER FEEDER Work Phone: [facility] Comment on above: Results Start: 09-20-2023 End: 09-20-2023 Patient encounter procedure Shaun Kraft LAST CODE STRIPER.MOLDER FEEDER Work Phone: [facility] Comment on above: Right leg pain (Prim daniela Dx); Chronic anticoagulation Start: 12-07-2021 End: 12-07-2021 Subsequent hospital visit by physician Cora [facility] Work Phone: Radiology Comment on above: Acute right ankle pa in [M25.571] Start: 12-07-2021 End: 12-07-2021 Patient encounter procedure Shilo Henriquez MD Work Phone: [facility] Comment on above: Acute right ankle pa in (Primary Dx) Start: 09-26-2021 End: 09-26-2021 Patient encounter procedure Azra Joe APRN.MARC Work Phone: [facility] Comment on above: Sinobronchitis (Prim daniela Dx) Procedures Date Procedure Procedure Detail Performing Clinician Start: 09-20-2023 Dup-scan xtr veins unilateral/limited study Shaun Kraft APRN.MOLDER FEEDER Work Phone: Start: 12-07-2021 Radex ankle complete minimum 3 views Shilo Henriquez MD Work Phone: Start: 09-28-2017 Adult depression scr eening assessment Azra Joe APRN.MOLDER FEEDER Work Phone: Start: 09-18-2017 Lipid 1996 panel - S ne or Plasma Shaun Kraft APRN.MOLDER FEEDER Work Phone: Start: 09-10-2017 Mammography Azra Stephen APRN.MOLDER FEEDER Work Phone: Start: 08-13-2014 Colonoscopy Azra Stephen APRN.MOLDER FEEDER Work Phone: Plan of Treatment Date Care Activity Detail Author Start: 01-19-2028 Urine microalbumin profile [facility] Start: 08-13-2024 Colonoscopy COLONOSCOPY [facility] Start: 08-13-2024 COLORECTAL CANCER SCREENING COLORECTAL CANCER SCREENING [facility] Start: 08-13-2024 Screening for malign ant neoplasm of colon [facility] Start: 01-27-2024 Covid-19 Vaccine ( season) Covid-19 Vaccine () [facility] Start: 01-27-2024 Influenza vaccination [facility] Start: 05-28-2023 Behavioral Health Screening Behavioral Health Screening [facility] Start: 01-26-2023 Covid-19 Vaccine ( season) Covid-19 Vaccine () [facility] Start: 09-18-2022 Lipid panel Lipid Screening [facility] Start: 09-18-2022 LIPID SCREEN LIPID SCREEN [facility] Start: 01-26-2022 Influenza vaccination [facility] Start: 09-23-2021 COVID-19 VACCINE (4 - Booster for Pfizer series) COVID-19 VACCINE (4 - Booster for Pfizer series) [facility] Start: 09-18-2020 DIABETES SCREEN DIABETES SCREEN [facility] Start: 09-18-2020 Diabetes Screening Diabetes Screenin g [facility] Start: 2020 SHINGRIX VACCINE (1 of 2) SHINGRIX V ACCINE (1 of 2) [facility] Start: 01-18-2019 ANNUAL PCP TEAM MANAGER CHEMICAL BHARATH DISEASE VISIT ANNUAL PCP TEAM CHRONIC DISEASE VISIT [facility] Start: 09-28-2018 Adult depression scr eening assessment DEPRESSION SCREENING [facility] Start: 09-10-2018 Mammography MAMMOGRAM [facility] Start: 09-10-2018 Screening for malign ant neoplasm of breast Mammogram Screening [facility] Start: 08-08-2015 COLOGUARD (FIT-DNA) COLOGUARD (FIT-D NA) [facility] Start: 08-08-[address] COLONOGRAPHY [facility] Start: 08-08-2015 FECAL OCCULT BLOOD FECAL OCCULT BLOO D [facility] Start: 08-08-2015 Screening for malign ant neoplasm of colon [facility] Start: 08-08-2015 SIGMOIDOSCOPY SIGMOIDOSCOPY [facility] Start: 1988 Annual PCP Team Inorganic Chemistry Professor bharath Disease Visit Annual PCP Team Chronic Disease Visit [facility] Start: 1988 Anxiety Screening Anxiety Screening [facility] Start: 1988 BP CONTROLLED (<130/80) BP CONTROLLE D (<130/80) [facility] Start: 1988 Depression Screening Depression Scre ening [facility] Start: 1988 HEPATITIS C SCREENING HEPATITIS C [facility] Start: 1988 Hepatitis C screening Hepatitis C [facility] Start: 1988 HIV SCREENING HIV SCREENING [facility] Start: 1988 HIV screening HIV Screening [facility] Immunizations Immunization Date Immunization Notes Care Provider Siria zaman 05-02-2022 influenza virus vaccine, unspecified formulation Shaun Kraft LAST CODE STRIPER.MOLDER FEEDER Work Phone: [facility] 01-22-2018 measles, mumps and rubella virus vaccine Azra Joe LAST CODE STRIPER.MOLDER FEEDER Work Phone: [facility] Work Phone: 01-18-2018 tetanus toxoid, redu edil diphtheria toxoid, and acellular pertussis vaccine, adsorbed Azra Praisler-Wood LAST CODE STRIPER.[facility] Work Phone: [facility] 03-03-2017 influenza, injectabl e, quadrivalent, contains preservative Azra Praisler-Wood LAST CODE STRIPER.[facility] Work Phone: [facility] 12-25-2016 tuberculin skin test ; purified protein derivative solution, intradermal Xr [place] Work Phone: [facility] 02-11-2016 influenza, injectabl e, quadrivalent, contains preservative Azra Praisler-Wood LAST CODE STRIPER.[facility] Work Phone: [facility] 04-01-2015 influenza, injectabl e, quadrivalent, contains preservative Azra Praisler-Wood LAST CODE STRIPER.[facility] Work Phone: [facility] Work Phone: 03-12-2014 influenza, seasonal, injectable Azra Praisvarun-Wood LAST CODE STRIPER.[facility] Work Phone: [facility] Work Phone: 03-28-2012 influenza virus vaccine, unspecified formulation Azra Praisler-Wood LAST CODE STRIPER.[facility] Work Phone: [facility] 04-03-2011 influenza virus vaccine, unspecified formulation Azra Praisler-Wood LAST CODE STRIPER.[facility] Work Phone: [facility] 04-08-2009 novel [id number], all formulations Azra Praisler-Wood LAST CODE STRIPER.[facility] Work Phone: [facility] 01-10-2008 tetanus and diphther ia toxoids, adsorbed, preservative free, for adult use (2 Lf of tetanus toxoid and 2 Lf of diphtheria toxoid) Azar Emery-Nicholas LAST CODE STRIPER.[facility] Work Phone: [facility] Work Phone: Payers Date Payer Category Payer Unknown MMO MMO [employer] [id number] 2020-Present [phone] [address] [place] [address] PPO [id number] 2020 Unknown MMO MMO [employer] PPO [id number] 2020-Present [phone] [address] [place] [address] PPO [id number] 2020 Unknown [id number] Social History Date Type Detail Facility Start: 09-20-2023 Tobacco smoking stat [facility] Never smoked tobacco [facility] Start: 09-26-2021 End: 12-07-2021 Alcohol intake Current drinker of alcohol (finding) [facility] Start: 10-07-2015 History SDOH Alcohol Comment very occasional [facility] Start: 1970 Sex Assigned At Not on file [facility] Start: 09-20-2023 Tobacco use and exposure Smoke less tobacco non-user [facility] Start: 05-02-2020 End: 09-20-2023 History of Social function [facility] Start: 05-02-2020 End: 09-20-2023 Tobacco use panel [facility] Adult Depression Screening Assessment 1 [facility] Medical Equipment Procedure Code Equipment Code Equipment Origin al Text Equipment Identifier Dates Mirchel Iud - [id number] Start: 04-06-2015 Clinical Notes 03-11-2015 to 09-20-2023 Telephone Encounter - Shaun Kraft APRN.MOLDER FEEDER - 09/20/2023 4:31 PM EDTTelephone Encounter - Shaun Kraft APRN.MOLDER FEEDER - 09/20/2023 4:31 PM EDTBMontrell ortega TECHNOLOGIST - 09/20/2023 4:00 PM EDT Note Date & Type Note Facility 09-20-2023 Note HNO ID: [id number] Author: MONTRELL ROSS TECHNOLOGIST Service: ? Author Type: Technologist Type: Progress Notes Filed: 09/20/2023 16:22 Note Text: Radiology Service Progress Note PATIENT NAME: Zunilda Álvarez DATE OF SERVICE: September 20, 2023 TIME: 4:22 PM PATIENT IDENTITY VERIFICATION COMPLETED USING TWO (2) IDENTIFIERS: Name and Date of confirmed by patient verbally. FALL SCREENING: Has the patient had 2 falls in the last year or 1 fall with injury or currently using an Ambulatory Assistive Device (Walker, Cane, Wheelchair, Crutches, etc.)? No PATIENT GENDER DATA: Female. status: : No status: NO. PATIENT RELEVANT IMPLANT DATA REVIEWED: Yes PATIENT PRESENTS WITH AN IMPLANTABLE OR ATTACHED KNITTER MECHANIC: No RADIOLOGY DEPARTMENT: Ultrasound PERIPHERAL IV DATA: Not applicable SIGNED BY: Montrell Ross TECHNOLOGIST September 20, 2023 4:22 PM [facility] 09-20-2023 Telephone encounter Note US DVT negative. Patient notified. Will follow up with PCP related to Coumadin. [facility] Work Phone: 09-20-2023 Miscellaneous Notes US DVT negative. Patient notified. Will follow up with PCP related to Coumadin. documented in this encounter [facility] 09-20-2023 History of Presen t illness Narrative Radiology Service Progress Note PATIENT NAME: Zunilda Álvarez DATE OF SERVICE: September 20, 2023 TIME: 4:22 PM PATIENT IDENTITY VERIFICATION COMPLETED USING TWO (2) IDENTIFIERS: Name and Date of confirmed by patient verbally. FALL SCREENING: Has the patient had 2 falls in the last year or 1 fall with injury or currently using an Ambulatory Assistive Device (Walker, Cane, Wheelchair, Crutches, etc.)? No PATIENT GENDER DATA: Female. status: : No status: NO. PATIENT RELEVANT IMPLANT DATA REVIEWED: Yes PATIENT PRESENTS WITH AN IMPLANTABLE OR ATTACHED KNITTER MECHANIC: No RADIOLOGY DEPARTMENT: Ultrasound PERIPHERAL IV DATA: Not applicable SIGNED BY: Montrell Ross, TECHNOLOGIST September 20, 2023 4:22 PM documented in this encounter [facility] 09-20-2023 Note HNO ID: [id number] Author: SHAUN KRAFT APRN.MOLDER FEEDER Service: ? Author Type: Nurse Practitioner Type: Progress Notes Filed: 09/20/2023 13:53 Note Text: This note was created using NoteWriter. Subjective Zunilda Álvarez is a 53 year old female. 53 year old female with PMH HTN, GILLIAN, adjustment disorder, obesity and chronic anticoagulation presents for concerns for DVT. Acute onset of symptoms was 2 weeks ago Right lower leg +pain +cramping Denies known trauma or injury Denies numbness or tingling Denies CP. 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 INR was 2.4 approximately 2 weeks ago Her coumadin dosage is 7.5 mg 4 days of the week 10 mg 3 days of the week The history is provided by the patient. No proposal specialist was used. Musculoskeletal Problem This is a new problem. The current episode started 1 to 4 weeks ago. The problem occurs constantly. The problem has been gradually worsening. Pertinent negatives include no abdominal pain, anorexia, arthralgias, change in bowel habit, chest pain, chills, congestion, coughing, diaphoresis, fatigue, fever, headaches, joint swelling, myalgias, nausea, neck pain, numbness, rash, sore throat, swollen glands, urinary symptoms, vertigo, visual change, vomiting or weakness. Nothing aggravates the symptoms. She has tried nothing for the symptoms. The treatment provided no relief. PAST MEDICAL HISTORY Diagnosis Date Hypertension KERVIN (iron deficiency anemia) 03/24/2014 Left leg DVT (HCC) 02/27/2011 x1 (2010), s/p left foot surgery; x2 (2011) Pneumonia Positive occult stool blood test Snoring PAST SURGICAL HISTORY Procedure Laterality Date CHOLECYSTECTOMY 2000 laparoscopic COLONOSCOPY FLX DX W/COLLJ SPEC WHEN PFRMD 08/03/2014 Colonoscopy ESOPHAGOGASTRODUODENOSCOPY TRANSORAL DIAGNOSTIC 08/03/2014 EGD HYSTERECTOMY HX 09/2015 HYSTEROSCOPY BX W/WO DANDC 04/06/15 INSERT INTRAUTERINE DEVICE 04/06/15 Mirena Insertion LIG/TRNSXJ FLP TUBE ABDL/VAG APPR UNI/BI 2006 PAST SURGICAL HISTORY OF Heel spur-left ALLERGIES Patient has no known allergies. MEDICATIONS albuterol HFA (VENTOLIN HFA) 90 mcg/actuation inhaler Inhale 2 Puffs as instructed every 4 hours as needed. cyclobenzaprine (FLEXERIL) 10 mg tablet Take 1 tablet by mouth three times daily as needed for muscle spasm. buPROPion XL (WELLBUTRIN XL) 300 mg 24 hr tablet Take 1 tablet by mouth once daily. hydroCHLOROthiazide (HYDRODIURIL, ESIDRIX) 25 mg tablet Take 1 tablet by mouth once daily. losartan (COZAAR) 50 mg tablet Take 1 tablet by mouth once daily. Cholecalciferol, Vitamin D3, 2,000 unit cap Take 1 capsule by mouth once daily. potassium chloride ER (KLOR-CON M20) 20 mEq tablet Take 1 tablet by mouth twice daily. warfarin (COUMADIN) 5 mg tablet 10 mg Mon/Wed/Fri and 7.5 mg all other days or as directed warfarin (COUMADIN) 5 mg tablet 10 mg Mon/Wed/Fri and 7.5 mg all other days or as directed warfarin (COUMADIN) 5 mg tablet 10 mg Mon/Wed/Fri and 7.5 mg all other days or as directed COMPOUNDED PRESCRIPTION AutoPAP 5-15 cmH2O with humidification. Assoc dx: GILLIAN G47.33 FAMILY HISTORY Problem Relation Age of Onset Hypertension Mother Cancer Father lung bone bladder Ischemic Heart Disease Maternal Grandmother Social History Tobacco Use Smoking status: Never Smokeless tobacco: Never Substance Use Topics Alcohol use: Yes Comment: very occasional Drug use: No Review of Systems Constitutional: Negative for chills, diaphoresis, fatigue and fever. HENT: Negative for congestion and sore throat. Eyes: Negative for photophobia, pain, discharge and itching. Respiratory: Negative for apnea, cough and chest tightness. Cardiovascular: Negative for chest pain. Gastrointestinal: Negative for abdominal pain, anorexia, change in bowel habit, nausea and vomiting. Musculoskeletal: Negative for arthralgias, joint swelling, myalgias and neck pain. Leg Pain Skin: Negative for rash. Allergic/Immunologic: Negative for environmental allergies, food allergies and immunocompromised state. Neurological: Negative for vertigo, weakness, numbness and headaches. Hematological: Negative for adenopathy. Does not bruise/bleed easily. Psychiatric/Behavioral: Negative for agitation and behavioral problems. Objective BP 136/80 Pulse 104 Temp 36.4 ?C (97.5 ?F) Resp 16 Wt (!) 138.2 kg (304 lb 10.8 oz) LMP 09/03/2015 (Approximate) SpO2 97% BMI 46.33 kg/m? Physical Exam Vitals and nursing note reviewed. Constitutional: General: She is not in acute distress. Appearance: Normal appearance. She is obese. She is not ill-appearing, toxic-appearing or diaphoretic. HENT: Head: Normocephalic and atraumatic. Right Ear: Ear canal and external ear normal. Left Ear: E (more content not included)... [facility] 09-20-2023 History of Presen t illness Narrative This note was created using [employer] Pharm[employer]. Subjective Zunilda Álvarez is a 53 year old female. 53 year old female with PMH HTN, GILLIAN, adjustment disorder, obesity and chronic anticoagulation presents for concerns for DVT. Acute onset of symptoms was 2 weeks ago Right lower leg +pain +cramping Denies known trauma or injury Denies numbness or tingling Denies CP. 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 INR was 2.4 approximately 2 weeks ago Her coumadin dosage is 7.5 mg 4 days of the week 10 mg 3 days of the week The history is provided by the patient. No proposal specialist was used. Musculoskeletal Problem This is a new problem. The current episode started 1 to 4 weeks ago. The problem occurs constantly. The problem has been gradually worsening. Pertinent negatives include no abdominal pain, anorexia, arthralgias, change in bowel habit, chest pain, chills, congestion, coughing, diaphoresis, fatigue, fever, headaches, joint swelling, myalgias, nausea, neck pain, numbness, rash, sore throat, swollen glands, urinary symptoms, vertigo, visual change, vomiting or weakness. Nothing aggravates the symptoms. She has tried nothing for the symptoms. The treatment provided no relief. PAST MEDICAL HISTORY Diagnosis Date Hypertension KERVIN (iron deficiency anemia) 03/24/2014 Left leg DVT (HCC) 02/27/2011 x1 (2010), s/p left foot surgery; x2 (2011) Pneumonia Positive occult stool blood test Snoring PAST SURGICAL HISTORY Procedure Laterality Date CHOLECYSTECTOMY 2000 laparoscopic COLONOSCOPY FLX DX W/COLLJ SPEC WHEN PFRMD 08/03/2014 Colonoscopy ESOPHAGOGASTRODUODENOSCOPY TRANSORAL DIAGNOSTIC 08/03/2014 EGD HYSTERECTOMY HX 09/2015 HYSTEROSCOPY BX W/WO D&C 04/06/15 INSERT INTRAUTERINE DEVICE 04/06/15 Mirena Insertion LIG/TRNSXJ FLP TUBE ABDL/VAG APPR UNI/BI 2006 PAST SURGICAL HISTORY OF Heel spur-left ALLERGIES Patient has no known allergies. MEDICATIONS albuterol HFA (VENTOLIN HFA) 90 mcg/actuation inhaler Inhale 2 Puffs as instructed every 4 hours as needed. cyclobenzaprine (FLEXERIL) 10 mg tablet Take 1 tablet by mouth three times daily as needed for muscle spasm. buPROPion XL (WELLBUTRIN XL) 300 mg 24 hr tablet Take 1 tablet by mouth once daily. hydroCHLOROthiazide (HYDRODIURIL, ESIDRIX) 25 mg tablet Take 1 tablet by mouth once daily. losartan (COZAAR) 50 mg tablet Take 1 tablet by mouth once daily. Cholecalciferol, Vitamin D3, 2,000 unit cap Take 1 capsule by mouth once daily. potassium chloride ER (KLOR-CON M20) 20 mEq tablet Take 1 tablet by mouth twice daily. warfarin (COUMADIN) 5 mg tablet 10 mg Mon/Wed/Fri and 7.5 mg all other days or as directed warfarin (COUMADIN) 5 mg tablet 10 mg Mon/Wed/Fri and 7.5 mg all other days or as directed warfarin (COUMADIN) 5 mg tablet 10 mg Mon/Wed/Fri and 7.5 mg all other days or as directed COMPOUNDED PRESCRIPTION AutoPAP 5-15 cmH2O with humidification. Assoc dx: GILLIAN G47.33 FAMILY HISTORY Problem Relation Age of Onset Hypertension Mother Cancer Father lung bone bladder Ischemic Heart Disease Maternal Grandmother Social History Tobacco Use Smoking status: Never Smokeless tobacco: Never Substance Use Topics Alcohol use: Yes Comment: very occasional Drug use: No Review of Systems Constitutional: Negative for chills, diaphoresis, fatigue and fever. HENT: Negative for congestion and sore throat. Eyes: Negative for photophobia, pain, discharge and itching. Respiratory: Negative for apnea, cough and chest tightness. Cardiovascular: Negative for chest pain. Gastrointestinal: Negative for abdominal pain, anorexia, change in bowel habit, nausea and vomiting. Musculoskeletal: Negative for arthralgias, joint swelling, myalgias and neck pain. Leg Pain Skin: Negative for rash. Allergic/Immunologic: Negative for environmental allergies, food allergies and immunocompromised state. Neurological: Negative for vertigo, weakness, numbness and headaches. Hematological: Negative for adenopathy. Does not bruise/bleed easily. Psychiatric/Behavioral: Negative for agitation and behavioral problems. Objective BP 136/80 Pulse 104 Temp 36.4 C (97.5 F) Resp 16 Wt (!) 138.2 kg (304 lb 10.8 oz) LMP 09/03/2015 (Approximate) SpO2 97% BMI 46.33 kg/m Physical Exam Vitals and nursing note reviewed. Constitutional: General: She is not in acute distress. Appearance: Normal appearance. She is obese. She is not ill-appearing, toxic-appearing or diaphoretic. HENT: Head: Normocephalic and atraumatic. Right Ear: Ear canal and external ear normal. Left Ear: Ear canal and external ear normal. Nose: Nose normal. No congestion or rhinorrhea. Mouth/Throat: Mouth: Mucous membranes are moist. Pharynx: No oropharyngeal exudate or posterior oropharyngeal erythema. Eyes: General: Right eye: No discharge. Left eye: No discharge. Extraocular Movements: Extraocular movements intact. Conjunctiva/sclera: Conjunctivae normal. Pupils: Pupils are equal, round, and reactive to light. Cardiovascular: Rate and Rhythm: Normal rate and regular rhythm. Pulses: Normal pulses. Heart sounds: Normal heart sounds. No murmur heard. No friction rub. Pulmonary: Effort: Pulmonary effort is normal. No respiratory distress. Breath sounds: Normal breath sounds. No stridor. No wheezing, rhonchi or rales. Chest: Chest wall: No tenderness. Abdominal: General: Abdomen is flat. There is no distension. Palpations: Abdomen is soft. There is no mass. Tenderness: There is no abdominal tenderness. There is no right CVA tenderness, left CVA tenderness, guarding or rebound. Hernia: No hernia is present. Musculoskeletal: General: No swelling, tenderness, deformity or signs of injury. Normal range of motion. Cervical back: Normal range of motion and neck supple. No rigidity. Right lower leg: No edema. Left lower leg: No edema. Comments: Right lower leg with no swelling. +mild TTP posterior calf just below knee. No ecchymosis. No erythema Palpable pulse +neuro +sensation Ambulatory in exam room. Left lower leg with swelling compared to right (that is my baseline) Lymphadenopathy: Cervical: No cervical adenopathy. Skin: General: Skin is warm and dry. Capillary Refill: Capillary refill takes less than 2 seconds. Coloration: Skin is not jaundiced or pale. Findings: No bruising, erythema, lesion or rash. Neurological: General: No focal deficit present. Mental Status: She is alert and oriented to person, place, and time. Cranial Nerves: No cranial nerve deficit. Sensory: No sensory deficit. Motor: No weakness. Coordination: Coordination normal. Gait: Gait normal. Psychiatric: Mood and Affect: Mood normal. Behavior: Behavior normal. Thought Content: Thought content normal. Judgment: Judgment normal. Assessment and Plan ASSESSMENT/PLAN: 1. Right leg pain - ICD9: 729.5, ICD10: M79.604 (primary diagnosis) Acute onset 2 weeks No trauma or injury States her coumadin levels have been all over No red flags - US DVT LOWER RIGHT-will obtain today at 4 pm @ [facility] 2. Chronic anticoagulation - ICD9: V58.61, ICD10: Z79.01 Takes daily Coumadin Has not missed dosages, but concerned citing her levels have been off. Shaun Kraft APRN.MOLDER FEEDER documented in this encounter [facility] 12-07-2021 History of Presen t illness Narrative Patient presents with: right ankle pain: fell last night HPI: Right ankle pain: Duration: Fell and twisted ankle last night Location: Entire right ankle Character: aching and sharp Radiation: No. Aggravating: standing and walking Relieving: Elevation, ice, rest Pain relievers: None ( on warfarin) Associated: Numbness/tingling into toes Pertinent negatives: PAST MEDICAL HISTORY Diagnosis Date Hypertension KERVIN (iron deficiency anemia) 03/24/2014 Left leg DVT (HCC) 02/27/2011 x1 (2010), s/p left foot surgery; x2 (2011) Pneumonia Positive occult stool blood test Snoring MEDICATIONS: albuterol HFA (VENTOLIN HFA) 90 mcg/actuation inhaler Inhale 2 Puffs as instructed every 4 hours as needed. cyclobenzaprine (FLEXERIL) 10 mg tablet Take 1 tablet by mouth three times daily as needed for muscle spasm. buPROPion XL (WELLBUTRIN XL) 300 mg 24 hr tablet Take 1 tablet by mouth once daily. hydroCHLOROthiazide (HYDRODIURIL, ESIDRIX) 25 mg tablet Take 1 tablet by mouth once daily. losartan (COZAAR) 50 mg tablet Take 1 tablet by mouth once daily. Cholecalciferol, Vitamin D3, 2,000 unit cap Take 1 capsule by mouth once daily. warfarin (COUMADIN) 5 mg tablet 10 mg Mon/Wed/Fri and 7.5 mg all other days or as directed warfarin (COUMADIN) 5 mg tablet 10 mg Mon/Wed/Fri and 7.5 mg all other days or as directed warfarin (COUMADIN) 5 mg tablet 10 mg Mon/Wed/Fri and 7.5 mg all other days or as directed COMPOUNDED PRESCRIPTION AutoPAP 5-15 cmH2O with humidification. Assoc dx: GILLIAN G47.33 potassium chloride ER (KLOR-CON M20) 20 mEq tablet Take 1 tablet by mouth twice daily. ALLERGIES: ALLERGIES No Known Allergies VITALS: BP 124/82 Pulse 87 Temp 36.9 C (98.4 F) (Tympanic) Resp 18 Wt (!) 144.8 kg (319 lb 3.2 oz) LMP 09/03/2015 (Approximate) SpO2 99% BMI 48.53 kg/m PE: Pleasant, in no acute distress. ANKLE: right . Swelling present (lateral > medial). No deformity. Range of motion: inversion - painful, eversion - painful, anterior drawer- painful. painful to bear weight. limping gait. Palpation: Medial malleolus painful, lateral malleolus painful, Dorsal proximal midfoot - uncomfortable, proximal 5th metatarsal uncomfortable, posterior calcaneus uncomfortable. EXT: Abrasion left irving. ASSESSMENT/PLAN: 1. Acute right ankle pain - ICD9: 719.47, 338.19, ICD10: M25.571 - XR ANKLE GENERAL 3V AP/LAT/OBL RIGHT - negative. Rest, ice, compression, elevation, analgesia (acetaminophen). Allan wrap applied. Shilo Henriquez MD documented in this encounter [facility] 09-26-2021 History of Presen t illness Narrative Subjective HPI Zunilda Hope is a 51 year old female who presents with a cough for one month, sinus congestion and drainage, sore throat, not sleeping due to cough, low grade fever around 100 degrees. She has taken OTC Tylenol cold without relief. Review of Systems Constitutional: Positive for fever and malaise/fatigue. HENT: Positive for congestion and sore throat. Respiratory: Positive for cough and wheezing. Negative for shortness of breath. Cardiovascular: Negative for chest pain. BP 122/80 Pulse 77 Temp 36.8 C (98.3 F) Resp 20 Wt (!) 143.4 kg (316 lb 3.2 oz) LMP 09/03/2015 (Approximate) SpO2 98% BMI 48.08 kg/m PAST MEDICAL HISTORY Diagnosis Date Hypertension KERVIN (iron deficiency anemia) 03/24/2014 Left leg DVT (HCC) 02/27/2011 x1 (2010), s/p left foot surgery; x2 (2011) Pneumonia Positive occult stool blood test Snoring PAST SURGICAL HISTORY Procedure Laterality Date CHOLECYSTECTOMY 2000 laparoscopic COLONOSCOPY FLX DX W/COLLJ SPEC WHEN PFRMD 08/03/2014 Colonoscopy ESOPHAGOGASTRODUODENOSCOPY TRANSORAL DIAGNOSTIC 08/03/2014 EGD HYSTERECTOMY HX 09/2015 HYSTEROSCOPY BX W/WO D&C 04/06/15 INSERT INTRAUTERINE DEVICE 04/06/15 Mirena Insertion LIG/TRNSXJ FLP TUBE ABDL/VAG APPR UNI/BI 2006 PAST SURGICAL HISTORY OF Heel spur-left ALLERGIES Patient has no known allergies. MEDICATIONS cyclobenzaprine (FLEXERIL) 10 mg tablet Take 1 tablet by mouth three times daily as needed for muscle spasm. buPROPion XL (WELLBUTRIN XL) 300 mg 24 hr tablet Take 1 tablet by mouth once daily. hydroCHLOROthiazide (HYDRODIURIL, ESIDRIX) 25 mg tablet Take 1 tablet by mouth once daily. losartan (COZAAR) 50 mg tablet Take 1 tablet by mouth once daily. Cholecalciferol, Vitamin D3, 2,000 unit cap Take 1 capsule by mouth once daily. potassium chloride ER (KLOR-CON M20) 20 mEq tablet Take 1 tablet by mouth twice daily. warfarin (COUMADIN) 5 mg tablet 10 mg Mon/Wed/Fri and 7.5 mg all other days or as directed warfarin (COUMADIN) 5 mg tablet 10 mg Mon/Wed/Fri and 7.5 mg all other days or as directed warfarin (COUMADIN) 5 mg tablet 10 mg Mon/Wed/Fri and 7.5 mg all other days or as directed COMPOUNDED PRESCRIPTION AutoPAP 5-15 cmH2O with humidification. Assoc dx: GILLIAN G47.33 amoxicillin-clavulanic acid (AUGMENTIN) 875-125 mg per tablet Take 1 tablet by mouth twice daily for 7 days. albuterol HFA (VENTOLIN HFA) 90 mcg/actuation inhaler Inhale 2 Puffs as instructed every 4 hours as needed. predniSONE (DELTASONE) 20 mg tablet Take 2 tablets by mouth once daily for 4 days. Take daily with food. Xbbqcegvuiyxnra-Pkllceymn-QT (BROMFED DM) 2-30-10 mg/5 mL syrup Take 5 mL by mouth four times daily as needed. FAMILY HISTORY Problem Relation Age of Onset Hypertension Mother Cancer Father lung bone bladder Ischemic Heart Disease Maternal Grandmother Social History Tobacco Use Smoking status: Never Smoker Smokeless tobacco: Never Used Substance Use Topics Alcohol use: Yes Comment: very occasional Drug use: No Objective Physical Exam Vitals and nursing note reviewed. Constitutional: Appearance: She is obese. HENT: Right Ear: Tympanic membrane, ear canal and external ear normal. Left Ear: Tympanic membrane, ear canal and external ear normal. Nose: Nose normal. Mouth/Throat: Pharynx: Uvula midline. No oropharyngeal exudate or posterior oropharyngeal erythema. Cardiovascular: Rate and Rhythm: Normal rate and regular rhythm. Heart sounds: Normal heart sounds. Pulmonary: Effort: Pulmonary effort is normal. No respiratory distress. Breath sounds: Examination of the right-upper field reveals wheezing. Examination of the left-upper field reveals wheezing. Examination of the right-lower field reveals wheezing. Examination of the left-lower field reveals wheezing. Wheezing (slight) present. No rales. Musculoskeletal: Cervical back: Neck supple. Lymphadenopathy: Cervical: No cervical adenopathy. Skin: General: Skin is warm and dry. Findings: No erythema or rash. Neurological: Mental Status: She is alert. ASSESSMENT/PLAN: 1. Sinobronchitis - ICD9: 473.9, 490, ICD10: J32.9, J40 - Will begin treatment with Augmentin 875 mg PO BID for 7 days - Supportive care with plenty of fluids, rest, and analgesia prn. - AMOXICILLIN 875 MG-POTASSIUM CLAVULANATE 125 MG TABLET - ALBUTEROL SULFATE HFA 90 MCG/ACTUATION AEROSOL INHALER - PREDNISONE 20 MG TABLET - Follow-up with your PCP in 3-5 days if symptoms have not improved or sooner if symptoms worsen - Discussed red flags and need for immediate medical evaluation if any occur. - Discussed supportive care treatment with fluids, rest and analgesia. - Discussed expected course of illness Azra Joe APRN.MOLDER FEEDER documented in this encounter [facility] 09-26-2021 Instructions Azra Joe APRN.MARC - 09/26/2021 6:04 PM EDT ASSESSMENT/PLAN: 1. Sinobronchitis - ICD9: 473.9, 490, ICD10: J32.9, J40 - Will begin treatment with Augmentin 875 mg PO BID for 7 days - Supportive care with plenty of fluids, rest, and analgesia prn. - AMOXICILLIN 875 MG-POTASSIUM CLAVULANATE 125 MG TABLET - ALBUTEROL SULFATE HFA 90 MCG/ACTUATION AEROSOL INHALER - PREDNISONE 20 MG TABLET - Follow-up with your PCP in 3-5 days if symptoms have not improved or sooner if symptoms worsen - Discussed red flags and need for immediate medical evaluation if any occur. - Discussed supportive care treatment with fluids, rest and analgesia. - Discussed expected course of illness Azra Joe APRN.MOLDER FEEDER ACUTE BRONCHITIS: You have acute bronchitis. This means the airway passages in your lungs are inflamed. Bronchitis may be caused by viruses or bacteria. Inhaling cigarette smoke will always make it worse. Exposure to irritating chemicals or second hand smoke as well as allergies can contribute to bronchitis. Repeat episodes of bronchitis may cause lifelong lung problems. Acute bronchitis is usually treated with rest, fluids, cough medicine, and possibly antibiotics or inhaled medicine to open up the small airways. It is very important that you avoid smoke and drink increased amounts of fluids. A cool air vaporizer can help thin bronchial secretions. This makes it easier to cough and clear your chest. If you are a cigarette smoker, consider using nicotine gum or skin patches to help you withdraw. Recovery from bronchitis is often slow, but you should start feeling better after 2-3 days of treatment. Please call your doctor or return here if you have any of the following symptoms: Increased fever, chills, or chest pain. Severe shortness of breath or bloody sputum. Do not improve after 3 days of proper treatment. documented in this encounter [facility] 03-11-2015 History of Past i llness Narrative Problem Noted Date Resolved Date Menorrhagia with irregular cycle 03/11/2015 07/12/2016 KERVIN (iron deficiency anemia) 03/24/201408/2017 documented as of this encounter (statuses as of 09/26/2021) [facility] History of Past illness Narrative* Problem Noted Date Resolved Date Menorrhagia with irregular cycle 03/11/2015 07/12/2016 KERVIN (iron deficiency anemia) 03/24/201408/2017 documented as of this encounter (statuses as of 12/07/2021) [facility] Sinobronchitis- Primary Unspecified sinusitis (chronic) [facility] Acute right ankle pain- Primary [facility] Right leg pain- Primary Pain in limb Chronic anticoagulation Long-term (current) use of anticoagulants Right leg pain Pain in limb [facility] Diagnosis Right leg pain Pain in limb [facility] Diagnostic Procedure Only (Urgent) - Closed Specialty Diagnoses / Procedures Referred By Contac t Referred To Contact XR IMAGING Diagnoses Acute right ankle pain Procedures XR ANKLE GENERAL 3V AP/LAT/OBL RIGHT RADEX ANKLE COMPLETE MINIMUM 3 VIEWS Shilo Henriquez MD [address] [place] [address] Xr Imaging Referral ID Status Reason Start Date Expiration Date V isits Requested Visits Authorized [id number] Closed Auto-Generate d Referral 12/07/2021 01/06/2023 1 1 [facility] for referral (narrative)* Diagnostic Procedure Only (Urgent) - Closed Specialty Diagnoses / Procedures Referred By Contac t Referred To Contact US IMAGING Diagnoses Right leg pain Procedures US DVT LOWER RIGHT DUP-SCAN XTR VEINS UNILATERAL/LIMITED STUDY Shaun Kraft APRN.MOLDER FEEDER [address] [place] [address] [place] [address] Referral ID Status Reason Start Date Expiration Date V isits Requested Visits Authorized [id number] Closed Auto-Generate d Referral 09/20/2023 10/19/2024 1 1 [facility] for referral (narrative)* Diagnostic Procedure Only (Urgent) - Closed Specialty Diagnoses / Procedures Referred By Contac t Referred To Contact US IMAGING Diagnoses Right leg pain Procedures US DVT LOWER RIGHT DUP-SCAN XTR VEINS UNILATERAL/LIMITED STUDY Shaun Kraft LAST CODE STRIPER.MOLDER FEEDER [address] [place] [address] [place] [address] Referral ID Status Reason Start Date Expiration Date V isits Requested Visits Authorized [id number] Closed Auto-Generate d Referral 09/20/2023 10/19/2024 1 1 [facility] for referral (narrative)* Diagnostic Procedure Only (Urgent) - Closed Specialty Diagnoses / Procedures Referred By Contac t Referred To Contact XR IMAGING Diagnoses Acute right ankle pain Procedures XR ANKLE GENERAL 3V AP/LAT/OBL RIGHT RADEX ANKLE COMPLETE MINIMUM 3 VIEWS Shilo Henriquez MD [address] [place] [address] [place] [address] Referral ID Status Reason Start Date Expiration Date V isits Requested Visits Authorized [id number] Closed Auto-Generate d Referral 12/07/2021 01/06/2023 1 1 [facility] for visit Narrative* Diagnostic Procedure Only (Urgent) - Closed Specialty Diagnoses / Procedures Referred By Contac t Referred To Contact US IMAGING Diagnoses Right leg pain Procedures US DVT LOWER RIGHT DUP-SCAN XTR VEINS UNILATERAL/LIMITED STUDY Shaun Kraft APRN.CNP [address] [place] [address] [place] [address] Referral ID Status Reason Start Date Expiration Date V isits Requested Visits Authorized [id number] Closed Auto-Generate d Referral 09/20/2023 10/19/2024 1 1 [facility] for visit Narrative* Diagnostic Procedure Only (Urgent) - Closed Specialty Diagnoses / Procedures Referred By Contac t Referred To Contact XR IMAGING Diagnoses Acute right ankle pain Procedures XR ANKLE GENERAL 3V AP/LAT/OBL RIGHT RADEX ANKLE COMPLETE MINIMUM 3 VIEWS Shilo Henriquez MD [address] [place] [address] [place] [address] Referral ID Status Reason Start Date Expiration Date V isits Requested Visits Authorized [id number] Closed Auto-Generate d Referral 12/07/2021 01/06/2023 1 1 [facility] Advance Directives Documents on File Type Date Recorded Patient Nurse Aide Evaluator Expl anation Advance Directive(s) 09/22/2015 4:31 PM Documents on File Type Date Recorded Patient Nurse Aide Evaluator Expl anation Advance Directive(s) 09/22/2015 4:31 PM Summary Purpose Family History No Family History Records FoundNo Family History Records Found Additional Source Comments Source Comments (unrecognize d section and content) In the event this informatio n is protected by the Federal Confidentiality of Alcohol and Drug Abuse Patient Records regulations: The Federal rules restrict any use of the information to criminally investigate or prosecute any alcohol or drug abuse patient.[facility] the event this information is protected by the Federal Confidentiality of Alcohol and Drug Abuse Patient Records regulations: The Federal rules restrict any use of the information to criminally investigate or prosecute any alcohol or drug abuse patient.[facility] the event this information is protected by the Federal Confidentiality of Alcohol and Drug Abuse Patient Records regulations: The Federal rules restrict any use of the information to criminally investigate or prosecute any alcohol or drug abuse patient.[facility] the event this information is protected by the Federal Confidentiality of Alcohol and Drug Abuse Patient Records regulations: The Federal rules restrict any use of the information to criminally investigate or prosecute any alcohol or drug abuse patient.[facility] the event this information is protected by the Federal Confidentiality of Alcohol and Drug Abuse Patient Records regulations: The Federal rules restrict any use of the information to criminally investigate or prosecute any alcohol or drug abuse patient.[facility] the event this information is protected by the Federal Confidentiality of Alcohol and Drug Abuse Patient Records regulations: The Federal rules restrict any use of the information to criminally investigate or prosecute any alcohol or drug abuse patient.[facility] Reason for Visit (unrecogniz ed section and content) Reason Comments Cough x1 month Sore Throat fatigue, low fever x 1 month intermittent Reason Comments right ankle pain fell last night Reason Comments Knee Pain Right knee pain behi nd knee. Reason Comments Results Care Teams (unrecognized sec tion and content) Bean Picker Relationship Specialty Start Date End Date Valencia Enriquez MD [address] [place], [place] [address] [phone] PCP - General Internal Medicine 01/28/19 Mariposa Kirby MD [address] [place] [address] Primary Staff Physician Cardiology 08/13/18 Bean Picker Relationship Specialty Start Date End Date Valencia Enriquez MD [address] [address] PCP - General Internal Medicine 01/28/19 Mariposa Kirby MD [address] [place] [address] Primary Staff Physician Cardiology 08/13/18 Bean Picker Relationship Specialty Start Date End Date Norah Lockett MD [address] [place] [address] PCP - General Family Medicine 09/20/23 Bean Picker Relationship Specialty Start Date End Date Norah Lockett MD [address] [place] [address] PCP - General Family Medicine 09/20/23 Bean Picker Relationship Specialty Start Date End Date Norah Lockett MD [address] [place] [address] PCP - General Family Medicine 09/20/23 Bean Picker Relationship Specialty Start Date End Date Valencia Enriquez MD [address] [place] [address] PCP - General Internal Medicine 01/28/19 09/19/23 Mariposa Kirby MD [address] [place], [place] [id number] Primary Staff Physician Cardiology 08/13/18 INFORMATION SOURCE (unrecogn ized section and content) DATE CREATED AUTHOR 09/22/2023 [facility] DATE CREATED AUTHOR 'S CECILY DOMÍNGUEZ 09/22/2023 [facility] FOR RECORDS PERTAINING TO PATIENTS WHO ARE OR HAVE BEEN ENROLLED IN A CHEMICAL DEPENDENCY/SUBSTANCEABUSE PROGRAM, SOME INFORMATION MAY BE OMITTED. This clinical summary was aggregated from multiple sources. Caution should be exercised in using it in the provision of clinical care. This summary normalizes information from multiple sources, and as a consequence, information in this document may materially change the coding, format and clinical context of patient data. In addition, data may be omitted in some cases. CLINICAL DECISIONS SHOULD BE BASED ON THE PRIMARY CLINICAL RECORDS. [facility]. provides no warranty or guarantee of the accuracy or completeness of information in this document.
== END | disposition home or self-care (01) ==
LOC: OPBI 07:31
PROVIDERS: PCP Family Medicine; Referring Provider Family Medicine; Visit Provider Family Medicine
DX: Z12.31 Encounter for screening mammogram for malignant neoplasm of breast (principal)
CPT/HCPCS: 77063; 77067

== ENCOUNTER → 2024-08-08 | Outpatient (CLI) | payer OTHER, SELFPAY ==
[2024-08-08 12:48] LABS: Absolute Lymphocyte Count 2.08 X10^3/uL (0.83-4.51); Absolute Neutrophil Count 4.6 X10^3/uL (2.0-7.7); Basophil# 0.03 X10^3/uL; Basophil% 0.4 % (0-1); Eosinophils% 13.1 % (0-5); Hematocrit 43.9 % (37-47); Hemoglobin 14.3 g/dL (12.0-15.0); Lymphocyte # 2.08 X10^3/ul (0.83-4.51); Lymphocyte % 24.8 % (19-41); Mean Corp Hgb Conc 32.6 g/dL (32-36); Mean Corpuscular Volume 85.9 fL (81-99); Mean Platelet Vol. 10.3 fl (6.2-12.0); Monocyte# 0.53 X10^3/uL; Monocyte% 6.3 % (0-10); NRBC Flagged by Analyzer 0 % (0-5); Neutrophil # 4.63 X10^3/uL (2.7-7.7); Neutrophil % 55.2 % (47-70); Platelet Count 273 K/mm3 (150-450); RBC Distribution Width CV 14.7 % (11.6-14.6); RBC Distribution Width SD 46.1 fl (35.1-43.9); Red Blood Count 5.11 M/mm3 (4.2-5.4); White Blood Count 8.4 K/mm3 (4.4-11.0)
[2024-08-08 13:43] LABS: Anion Gap 12 (5-15); BUN 16 mg/dL (4-19); BUN/Creat Ratio 15.1 RATIO (10-20); Calcium,Total 9.4 mg/dL (7.6-11.0); Carbon Dioxide 21.6 mmol/L (21.0-32.0); Chloride 105 mmol/L (98-108); Creatinine, Serum 1.08 mg/dL (0.70-1.20); EST Glomerular Filtration Rate 61 (>60); Glucose 79 mg/dL (70-99); Potassium 3.6 mmol/L (3.3-5.1); Sodium Level 139 mmol/L (133-145)
[2024-08-11 13:07] LABS: Endomysial Antibody IgA Negative (Negative); Immunoglobulin A 450 mg/dL (87-352); t-Transglutaminase IgA <2 U/mL (0-3)
== END | disposition home or self-care (01) ==
LOC: BFHLAB 11:20
PROVIDERS: PCP Family Medicine; Visit Provider Family Medicine
DX: R19.7 Diarrhea, unspecified (principal)
CPT/HCPCS: 36415; 80048; 82784; 83516; 85025; 86255

== ENCOUNTER → 2024-08-11 | Outpatient (CLI) | payer OTHER, SELFPAY | END | disposition home or self-care (01) | LOC: LABSPEC 09:10 | PROVIDERS: PCP Family Medicine; Visit Provider Family Medicine | DX: R19.7 Diarrhea, unspecified (principal) | CPT/HCPCS: 83630; 87177; 87209; 87493; 87506 ==